=== PATIENT | female | born 1980 | race Caucasian/White ===

== ENCOUNTER 2016-04-02 14:08 | Emergency (ER) | payer OTHER ==
[~2016-04-02] VITALS: Ht 157.5 cm; Wt 53.2 kg
[~2016-04-02 14:08] MED LIST: AMPH10TA2 PO; INSDGI SQ; LXP/20 PO; NVLG
[2016-04-02 14:14] VITALS: Ht 157.5 cm; Wt 53.2 kg
[2016-04-02] MEDS ORDERED: KETOROLAC TROMETHAMINE 30 MG/ML VIAL IV STA (15:13)
[2016-04-02] MEDS ORDERED: ACETAMINOPHEN 500 MG TAB PO STA (15:13)
[2016-04-02] MEDS ORDERED: SODIUM CHLORIDE 0.9% 1000ML 1,000 ML IV STA ×2 (15:13→17:06)
[2016-04-02] MEDS ORDERED: ONDANSETRON INJ 2 MG/ML 2 ML VIAL IV STA (15:13)
[2016-04-02] MEDS ORDERED: ALBUTEROL HFA 8 GM INHALER INH ONE (15:15)
[2016-04-02] MEDS ORDERED: MoRPHine SULFATE 4 MG/ML 1 ML CARP\\VIAL IV PRN (15:15)
--- NOTE | 2016-04-02 15:24 | EMERGENCY ROOM VISIT NOTE ---
History Report prepared by Joann: Linda Roger Under the Supervision of: Dr. Andrew Rosales M.D. First contact with patient: 15:10 Chief Complaint: COUGH Stated Complaint: HIGH FEVER, PAIN WITH COUGH Nursing Triage Summary: Triage note: pt reports since saturday she has had a cough with yellow sputum and fever. pt reports neck and back pain. mask given to pt in triage. pt reports she has taken no tylenol or motrin today for her fever/pain. History of Present Illness The patient is a 35 year old female who presents to the Emergency Room with complaints of a persistent, productive cough that began . She currently rates her discomfort as a 10/10 in severity. The patient states that her cough has been productive, noting that she has brought up yellow sputum with it. She notes that she has been vomiting due to coughing so much. The patient states that due to her cough she has been developed a headache, neck pain, and back pain. She notes that she has had a persistent fever. The patient denies taking anything for her fever this morning. She denies any urinary symptoms or diarrhea. The patient is unsure if she got a flu shot this year, and doesn't believe she was around anyone with similar symptoms or the flu. She states that she has not kept up on her fluid intake or food intake. The patient states that her blood glucose levels have been running high since her illness began. Source of History: patient Onset: Position: other (global) Symptom Intensity: 10/10 Quality: other (productive cough) Timing: other (persistent) Associated Symptoms: + back pain, + fevers, + headache, + neck pain, + vomiting Review of Systems See HPI for pertinent positives & negatives. A total of 10 systems reviewed and were otherwise negative. Past Medical & Surgical Medical Problems: (1) Diabetes (2) DKA (diabetic ketoacidoses) Surgical Problems: (1) Hx of section Family History Diabetes mellitus Hypertension Social History Smoking Status: Current Every Day Smoker Alcohol Use: none Marital Status: single Housing Status: lives with family Occupation Status: employed Current/Historical Medications Scheduled Albuterol Hfa (Ventolin Hfa), 3 PUFFS INH Q4 Amoxicillin & Pot Clavulanate (Augmentin 875-125 mg), 875 MG PO BID Amphetamine-Dextroamphetamine 10MG (Adderall 10MG), 10 MG PO DAILY Amphetamine-Dextroamphetamine 20MG (Adderall 20MG), 20 MG PO DAILY Control Pills ( Control Pills), 1 TAB PO DAILY Insulin Aspart (novoLOG INSULIN PUMP ), 1 EA N/A UD Allergies Coded Allergies: Niacin (Verified Allergy, Severe, HIVES, 02/21/16) Latex1 -Allergic Contact Dermititis (Verified Allergy, Mild, RASH, 11/02/10 ) PT. HAS REDDENED/FEELING BURNED AREA FROM TAPED SITES Physical Exam Vital Signs Date Time Temp Pulse Resp B/P Pulse Ox O2 Delivery O2 Flow Rate FiO2 04/02/16 16:00 95 Room Air 04/02/16 14:14 39.4 20 20 138/79 97 Room Air Physical Exam GENERAL: Patient is in no acute distress. HEENT: No acute trauma, normocephalic atraumatic, mucous membranes moist, no nasal congestion, no scleral icterus. Mild throat erythema, without exudate. NECK: No stridor, no adenopathy, no meningismus, trachea is midline. LUNGS: Diminished breath sounds with coarse breath sounds. No true wheezing, breath sounds are equal. No respiratory distress. Moist cough noted. HEART: Tachycardic with a regular rhythm, no murmurs. ABDOMEN: Soft, nontender, bowel sounds positive, no hernias, no peritonitis. EXTREMITIES: No cyanosis or edema, full range of motion of all the joints without pain or difficulty, no signs for acute trauma. NEUROLOGIC: Oriented x 3, no acute motor or sensory deficits, no focal weakness. SKIN: No rash, no jaundice, no diaphoresis. Medical Decision & Procedures ER Provider Diagnostic Interpretation: X-ray results as stated below per interpretation by me and the radiologist: CHEST ONE VIEW PORTABLE CLINICAL HISTORY: Respiratory distress. Dyspnea COMPARISON STUDY: Chest radiograph June 29, 2015. FINDINGS: Lung volumes are normal. Left lower lobe consolidation is noted. Right lung is clear. Cardiac size is normal. Mediastinal contours are normal. IMPRESSION: Small area of left lower lobe consolidation suggestive of pneumonia. Radiographic follow-up to ensure resolution is recommended. Electronically signed by: Derrell Hernandez M.D. 04/02/2016 3:58 PM Dictated Date/Time: 04/02/2016 3:58 PM Laboratory Results 04/02/16 16:10 Red Blood Count 4.22, Mean Corpuscular Volume 85.3, Mean Corpuscular Hemoglobin 30.3, Mean Corpuscular Hemoglobin Concent 35.6, Mean Platelet Volume 9.6, Neutrophils (%) (Auto) 85.8, Lymphocytes (%) (Auto) 7.3, Monocytes (%) (Auto) 6.4, Eosinophils (%) (Auto) 0.0, Basophils (%) (Auto) 0.1, Neutrophils # (Auto) 9.72, Lymphocytes # (Auto) 0.82, Monocytes # (Auto) 0.72, Eosinophils # (Auto) 0.00, Basophils # (Auto) 0.01 04/02/16 16:10 Test 04/02/16 14:16 04/02/16 15:40 04/02/16 16:10 04/02/16 17:05 Bedside Glucose 258 mg/dl (70-90) Influenza Type A Antigen Neg for Influ A (NEG) Influenza Type B Antigen Neg for Influ B (NEG) White Blood Count 11.31 K/uL (4.8-10.8) Red Blood Count 4.22 M/uL (4.2-5.4) Hemoglobin 12.8 g/dL (12.0-16.0) Hematocrit 36.0 % (37-47) Mean Corpuscular Volume 85.3 fL (80-100) Mean Corpuscular Hemoglobin 30.3 pg (25-34) Mean Corpuscular Hemoglobin Concent 35.6 g/dl (32-36) Platelet Count 210 K/uL (130-400) Mean Platelet Volume 9.6 fL (7.4-10.4) Neutrophils (%) (Auto) 85.8 % Lymphocytes (%) (Auto) 7.3 % Monocytes (%) (Auto) 6.4 % Eosinophils (%) (Auto) 0.0 % Basophils (%) (Auto) 0.1 % Neutrophils # (Auto) 9.72 K/uL (1.4-6.5) Lymphocytes # (Auto) 0.82 K/uL (1.2-3.4) Monocytes # (Auto) 0.72 K/uL (0.11-0.59) Eosinophils # (Auto) 0.00 K/uL (0-0.5) Basophils # (Auto) 0.01 K/uL (0-0.2) RDW Standard Deviation 42.2 fL (36.4-46.3) RDW Coefficient of Variation 13.5 % (11.5-14.5) Immature Granulocyte % (Auto) 0.4 % Immature Granulocyte # (Auto) 0.04 K/uL (0.00-0.02) Anion Gap 11.0 mmol/L (3-11) Est Creatinine Clear Calc Drug Dose 68.2 ml/min Estimated GFR () 94.2 Estimated GFR (Non- 81.2 BUN/Creatinine Ratio 10.4 (10-20) Calcium Level 8.6 mg/dl (8.5-10.1) Lactic Acid Level 0.9 mmol/L (0.4-2.0) Laboratory results reviewed by me. Medications Administered Medications (Trade) Dose Ordered Sig/Chuck Route Start Time Stop Time Status Last Admin Dose Admin Ondansetron HCl 4 mg 4 mg NOW STAT IV 04/02/16 15:13 04/02/16 15:17 DC 04/02/16 16:07 4 MG Sodium Chloride (Nss 1000ml) 1,000 ml @ 999 mls/hr Q1H1M STAT IV 04/02/16 15:13 04/02/16 16:13 DC 04/02/16 16:07 999 MLS/HR Morphine Sulfate (MoRPHine SULFATE INJ) 4 mg Q30M PRN IV 04/02/16 15:15 04/16/16 15:14 04/02/16 16:07 4 MG Acetaminophen (Tylenol Tab) 1,000 mg NOW STAT PO 04/02/16 15:13 04/02/16 15:17 DC 04/02/16 16:08 1,000 MG Ketorolac Tromethamine (Toradol Inj) 30 mg NOW STAT IV 04/02/16 15:13 04/02/16 15:17 DC 04/02/16 16:08 30 MG Albuterol (Ventolin Hfa Inhaler) 4 puffs NOW ONCE INH 04/02/16 15:15 04/02/16 15:17 DC 04/02/16 16:08 4 PUFFS Piperacillin Sod/ Tazobactam Sod 4.5 gm 4.5 gm NOW STAT IV 04/02/16 16:05 04/02/16 16:07 DC 04/02/16 16:10 4.5 GM Sodium Chloride (Nss 1000ml) 1,000 ml @ 999 mls/hr Q1H1M STAT IV 04/02/16 17:06 04/02/16 18:06 04/02/16 17:06 999 MLS/HR ED Course 1510: The patient was evaluated in room B12B. A complete history and physical exam was performed. 1513: Ordered Toradol Inj 30 mg IV, Tylenol Tab 1000 mg PO, Sodium Chloride 1000 ml @ 999 mls/hr IV, Zofran Inj 4 mg IV. 1515: Ordered Albuterol 4 puffs INH, Morphine Sulfate 4 mg IV. 1605: Ordered Zosyn IV 4.5 gm IV. 1705: I reevaluated the patient and she is feeling better and wishing to go home if possible. I discussed the findings thus far. We are waiting on her lactic acid and she is going to get more fluids. Ordered Sodium Chloride 1000 ml @ 999 mls/hr IV. 1745: I reevaluated the patient and she is resting comfortably. I discussed all the exam findings with her and I discussed the treatment plan. She verbalized complete understanding and agreement. She is ready to go home. Medical Decision The patient is a 35 year old female who presents to the ED with complaints of persistent productive cough. Differential diagnoses considered include Influenza, flu like illness, dehydration, pneumonia, electrolyte imbalance, sepsis, bronchitis. There is a mild leukocytosis which is consistent with infection, no concerning anemia. No significant electrolyte abnormality except for a mild elevation to the blood glucose. No kidney failure. Lactic acid level is not elevated making severe sepsis less likely. Influenza testing is negative. Blood cultures are pending. Chest film shows a left lower lung pneumonia, no pneumothorax. The patient received IV saline, IV Zofran, albuterol via MDI, IV Toradol and IV morphine. She received oral Tylenol. She was given a dose of IV Zosyn. The patient feels improved, she is not hypoxic or toxic. She would like to be discharged home, she feels comfortable with discharge. She will be using Augmentin and albuterol as an outpatient, hydration and rest were encouraged. Motrin/Tylenol for aches and pain and fever were suggested. The patient was encouraged to see her doctor this week and to return to the ER for worsening symptoms or difficulty with her breathing. Impression Primary Impression: Pneumonia Additional Impressions: Dehydration Fever Scribe Attestation The scribe's documentation has been prepared under my direction and personally reviewed by me in its entirety. I confirm that the note above accurately reflects all work, treatment, procedures, and medical decision making performed by me. Departure Information Dispostion Home / Self-Care Prescriptions Albuterol Hfa (VENTOLIN HFA) 200 Puffs/50324 Mcg Aers 3 PUFFS INH Q4, #1 INHALER Prov: Andrew Rosales M.D. 04/02/16 Amoxicillin & Pot Clavulanate (Augmentin 875-125 mg) 1 Tab Tab 875 MG PO BID for 10 Days, #20 TAB Prov: Andrew Rosales M.D. 04/02/16 Referrals Monica Ricci DO (PCP) Forms HOME CARE DOCUMENTATION FORM, IMPORTANT VISIT INFORMATION, Work Instructions Patient Instructions My [facility] Additional Instructions rest fluids motrin and or tylenol for fever and pain albuterol 3 puffs every 4 hours augmentin 2x per day for 10 days follow with derick pang this week return for worsening breathing or worsening symptoms Problem Qualifiers
[2016-04-02] MEDS ORDERED: AMPH10TA2 PO (15:41)
[2016-04-02 16:00] VITALS: O2SAT 95
--- NOTE | 2016-04-02 16:00 | DIAGNOSTIC IMAGING REPORT ---
CHEST ONE VIEW PORTABLE CLINICAL HISTORY: Respiratory distress. Dyspnea COMPARISON STUDY: Chest radiograph June 29, 2015. FINDINGS: Lung volumes are normal. Left lower lobe consolidation is noted. Right lung is clear. Cardiac size is normal. Mediastinal contours are normal. IMPRESSION: Small area of left lower lobe consolidation suggestive of pneumonia. Radiographic follow-up to ensure resolution is recommended. Electronically signed by: Derrell Hernandez M.D. 04/02/2016 3:58 PM Dictated Date/Time: 04/02/2016 3:58 PM
[2016-04-02] MEDS ORDERED: PIPERACILLIN/TAZOBACTAM 4.5 GM/100ML D5W IV STA (16:05)
[2016-04-02 16:27] LABS: MEAN CELL VOLUME 85.3 fL (80-100); MEAN CORPUSCULAR HEMOGLOBIN 30.3 pg (25-34); MEAN CORPUSCULAR HGB CONC 35.6 g/dl (32-36); MEAN PLATELET VOLUME 9.6 fL (7.4-10.4); PLATELET COUNT 210 K/uL (130-400); RED BLOOD COUNT 4.22 M/uL (4.2-5.4); WHITE BLOOD COUNT 11.31 K/uL (4.8-10.8)
[2016-04-02 16:46] LABS: BASO % 0.1 %; BASO ABS # 0.01 K/uL (0-0.2); BUN/CREATININE RATIO 10.4 (10-20); CALCIUM 8.6 mg/dl (8.5-10.1); COMPLETE YES; CREATININE 0.92 mg/dl (0.60-1.20); IG% 0.4 %; LYMPH % 7.3 %; LYMPH ABS # 0.82 K/uL (1.2-3.4); MONO % 6.4 %; NEUT % 85.8 %; POTASSIUM 3.8 mmol/L (3.5-5.1)
[2016-04-02] MEDS ORDERED: AMOX875T PO (17:45)
[2016-04-02] MEDS ORDERED: VNTHFA/IN INH (17:45)
[2016-04-02 18:30] VITALS: BP 92/69; PULSE 85; O2SAT 100
[2016-04-02 18:36] VITALS: TEMP 37
[2016-12-09] MEDS ORDERED: BCPILLS PO (13:47)
== END 2016-04-02 18:31 | disposition home or self-care (01) ==
LOC: C.EDB 14:09
DX: J18.9 Pneumonia, unspecified organism (principal); E86.0 Dehydration; R50.9 Fever, unspecified; E11.9 Type 2 diabetes mellitus without complications; Z83.3 Family history of diabetes mellitus; F17.210 Nicotine dependence, cigarettes, uncomplicated; Z79.3 Long term (current) use of hormonal contraceptives; Z79.4 Long term (current) use of insulin

== ENCOUNTER 2016-12-09 15:00 | Emergency (ER) | payer OTHER ==
[~2016-12-09] VITALS: Ht 157.5 cm; Wt 55.2 kg
[~2016-12-09 15:00] MED LIST changes: +BCPILLS PO; -INSDGI SQ; -LXP/20 PO; -NVLG
[2016-12-09 15:09] VITALS: TEMP 36.9; Ht 157.5 cm; Wt 55.2 kg
[2016-12-09] MEDS ORDERED: HYDROCODONE/ACETAMOPHEN 5/325MG TAB PO ONE (15:30)
[2016-12-09] MEDS ORDERED: AMPH20TA2 PO (15:41)
[2016-12-09] MEDS ORDERED: INSPMPNVLG (15:41)
[2016-12-09] MEDS ORDERED: TRAM-10 PO ×2 (15:41→15:53)
--- NOTE | 2016-12-09 15:48 | DIAGNOSTIC IMAGING REPORT ---
R WRIST MIN 3 VIEWS ROUTINE HISTORY: 36 years-old Female R/O fx right wrist acute right wrist pain status post trauma. COMPARISON: None available. TECHNIQUE: 4 views of the right wrist FINDINGS: Vascular calcifications are noted. There is no acute fracture or dislocation identified. Posttraumatic deformity with increased sclerosis is noted involving the first metacarpal with linear calcifications suggesting healed fracture deformity. There is mild soft tissue swelling about the wrist. No opaque foreign body identified. IMPRESSION: 1. Mild soft tissue swelling about the wrist without acute fracture or dislocation. 2. Healed fracture deformity of the first metacarpal. 3. Peripheral vascular disease. The above report was generated using voice recognition software. It may contain grammatical, syntax or spelling errors. Electronically signed by: Vasile Jones M.D. 12/09/2016 3:47 PM Dictated Date/Time: 12/09/2016 3:45 PM
[2016-12-09 15:56] VITALS: BP 128/76; PULSE 82; O2SAT 96
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
== END 2016-12-09 15:58 | disposition home or self-care (01) ==
LOC: C.EDB 15:01 → C.EDD 15:58
DX: M25.531 Pain in right wrist (principal); E11.9 Type 2 diabetes mellitus without complications; F17.200 Nicotine dependence, unspecified, uncomplicated; Z79.899 Other long term (current) drug therapy; Z91.040 Latex allergy status; Z88.8 Allergy status to other drugs, medicaments and biological substances

== ENCOUNTER 2017-02-15 12:11 | Emergency (ER) | payer OTHER ==
[~2017-02-15] VITALS: Ht 157.5 cm; Wt 53.8 kg
[~2017-02-15 12:11] MED LIST changes: +AMPH20TA2 PO; +INSPMPNVLG; +TRAM-10 PO
[2017-02-15 12:16] VITALS: BP 110/72; PULSE 85; TEMP 36.8; O2SAT 100; Ht 157.5 cm; Wt 53.8 kg
[2017-02-15] MEDS ORDERED: HYDROCODONE/ACETAMOPHEN 5/325MG TAB PO STA (13:00)
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
== END 2017-02-15 13:42 | disposition home or self-care (01) ==
LOC: C.EDB 12:12 → C.EDD 13:42
DX: M54.9 Dorsalgia, unspecified (principal); E11.9 Type 2 diabetes mellitus without complications; Z98.891 History of uterine scar from previous surgery; Z83.3 Family history of diabetes mellitus; Z82.49 Family history of ischemic heart disease and other diseases of the circulatory system

== ENCOUNTER 2017-05-28 16:03 | Emergency (ER) | payer OTHER ==
[~2017-05-28] VITALS: Ht 157.5 cm; Wt 44.0 kg
[~2017-05-28 16:03] MED LIST changes: -TRAM-10 PO
[2017-05-28 16:43] VITALS: Ht 157.5 cm; Wt 44.0 kg
--- NOTE | 2017-05-28 16:43 | EMERGENCY ROOM VISIT NOTE ---
History Report prepared by Joann: Jacques Guido Under the Supervision of: Dr. Allyson Hernandez M.D. First contact with patient: 16:06 Chief Complaint: MENTAL HEALTH EVALUATION Stated Complaint: MHID History of Present Illness The patient is a 36 year old female who presents to the Emergency Room with complaints of suicidal statements occurring last night. The patient states that her and her parents do not get along, and they called [facility] for the patient. The patient told [facility] that she was neither suicidal nor homicidal. The patient states that three weeks ago she asked her parents to watch her kids because there was an odd smell in her house, and she states that her parents will not give her kids back. The patient states that she got in a large fight with her parents last night, and she told them " why don't I just trade my car and do all the drugs under the sun. Then I'll be 6 feet under." The patient states that she does not want to hurt herself currently. She states that she used to use drugs ten years ago, and she thinks that her father will never get past that. The patient states that she has been clean since then other than a relapse two weeks ago when she smoked marijuana. She denies any other drug use, alcohol use, and she states that she smokes 3-4 cigarettes per day. The patient states that she starts a new job tomorrow. Of note the patient was brought in on a 302 after she phone on mobile crisis. Parents have been contacted and did file a petitioning statement based on statements of wanting to overdose on drugs. The patient has had significant erratic behavior according to the mother. She has been sending threatening text messages regarding her worthlessness and how she should just disappear to her father. The patient was fired from her job approximately 10 days ago for not showing up. 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 The patient apparently has been threatening to, and take her children back however did not show or call on the day she was supposed to. Her daughters have been with her parents for the last 3-1/2 weeks. She did drive her children to her parents house in the middle of the night, approximately 3 AM. Her mother states she does not have insurance cards or a house torres. The patient has apparently been having some hallucinations regarding white powder in her car "burning her face" , people walking on her ceiling and people stealing things from her. She has been calling her parents to her house to verify these paranoias. The patient has apparently been impulsive and reckless. Source of History: patient Onset: last night Position: other (global) Quality: other (suicidal statements) Note: Denies any suicidal or homicidal ideations Review of Systems See HPI for pertinent positives & negatives. A total of 10 systems reviewed and were otherwise negative. Past Medical & Surgical Medical Problems: (1) Diabetes (2) DKA (diabetic ketoacidoses) Surgical Problems: (1) Hx of section Family History Diabetes mellitus Hypertension Social History Smoking Status: Never Smoker Alcohol Use: none Marital Status: single Housing Status: lives with family Occupation Status: employed Current/Historical Medications Scheduled Control Pills ( Control Pills), 1 TAB PO DAILY Insulin Aspart (novoLOG INSULIN PUMP ), 1 EA N/A UD Melatonin-Pyridoxine (Melatonin), 5 MG PO HS [Cbd Liq], 1 DOSE PO DAILY Allergies Coded Allergies: Niacin (Verified Allergy, Severe, HIVES, 02/15/17) Latex1 -Allergic Contact Dermititis (Verified Allergy, Mild, RASH, 02/15/17 ) PT. HAS REDDENED/FEELING BURNED AREA FROM TAPED SITES Physical Exam Vital Signs Date Time Temp Pulse Resp B/P (MAP) Pulse Ox O2 Delivery O2 Flow Rate FiO2 05/28/17 21:36 89 142/88 97 Room Air 05/28/17 18:57 109 16 152/88 97 Room Air 05/28/17 16:43 36.8 133 18 161/98 100 Room Air Physical Exam Vital signs reviewed. General: Well-appearing female, in no significant distress. Slightly agitated. HEENT: No scleral icterus, PERRLA, neck supple. Atraumatic. Cardiovascular: Regular rate and rhythm, no extra sounds. Pulmonary: Clear to auscultation bilaterally, normal work of breathing. Abdomen: Soft, nontender, nondistended, positive bowel sounds. Musculoskeletal: Atraumatic, no peripheral edema. Neurologic: Patient awake alert and oriented x 3, full strength in all 4 extremities. Cranial nerves 2 through 12 grossly intact. Skin: Warm, dry, no rash Psych: Negative SI and HI. Medical Decision & Procedures Laboratory Results 05/28/17 16:40 Red Blood Count 4.98, Mean Corpuscular Volume 85.9, Mean Corpuscular Hemoglobin 30.5, Mean Corpuscular Hemoglobin Concent 35.5, Mean Platelet Volume 9.6, Neutrophils (%) (Auto) 64.5, Lymphocytes (%) (Auto) 30.4, Monocytes (%) (Auto) 3.9, Eosinophils (%) (Auto) 0.8, Basophils (%) (Auto) 0.1, Neutrophils # (Auto) 4.86, Lymphocytes # (Auto) 2.29, Monocytes # (Auto) 0.29, Eosinophils # (Auto) 0.06, Basophils # (Auto) 0.01 05/28/17 16:40 Test 05/28/17 16:35 05/28/17 16:40 05/28/17 18:22 Urine Color YELLOW Urine Appearance CLEAR (CLEAR) Urine pH 7.0 (4.5-7.5) Urine Specific Pine 1.015 (1.000-1.030) Urine Protein 1+ (NEG) Urine Glucose (UA) 3+ (NEG) Urine Ketones NEG (NEG) Urine Occult Blood NEG (NEG) Urine Nitrite NEG (NEG) Urine Bilirubin NEG (NEG) Urine Urobilinogen NEG (NEG) Urine Leukocyte Esterase NEG (NEG) Urine RBC 0-4 /hpf (0-4) Urine WBC 1-5 /hpf (0-5) Urine Epithelial Cells >30 /lpf (0-5) Urine Bacteria NEG (NEG) Urine Test NEG (NEG) Urine Opiates Screen NEG (NEG) Urine Methadone, Qualitative NEG (NEG) Urine Barbiturates NEG (NEG) Urine Phencyclidine (PCP) Level NEG (NEG) Ur Amphetamine/Methamphetamine POS (NEG) MDMA (Ecstasy) Screen NEG (NEG) Urine Benzodiazepines Screen NEG (NEG) Urine Cocaine Metabolite NEG (NEG) Urine Marijuana (THC) POS (NEG) White Blood Count 7.53 K/uL (4.8-10.8) Red Blood Count 4.98 M/uL (4.2-5.4) Hemoglobin 15.2 g/dL (12.0-16.0) Hematocrit 42.8 % (37-47) Mean Corpuscular Volume 85.9 fL (80-100) Mean Corpuscular Hemoglobin 30.5 pg (25-34) Mean Corpuscular Hemoglobin Concent 35.5 g/dl (32-36) Platelet Count 284 K/uL (130-400) Mean Platelet Volume 9.6 fL (7.4-10.4) Neutrophils (%) (Auto) 64.5 % Lymphocytes (%) (Auto) 30.4 % Monocytes (%) (Auto) 3.9 % Eosinophils (%) (Auto) 0.8 % Basophils (%) (Auto) 0.1 % Neutrophils # (Auto) 4.86 K/uL (1.4-6.5) Lymphocytes # (Auto) 2.29 K/uL (1.2-3.4) Monocytes # (Auto) 0.29 K/uL (0.11-0.59) Eosinophils # (Auto) 0.06 K/uL (0-0.5) Basophils # (Auto) 0.01 K/uL (0-0.2) RDW Standard Deviation 45.1 fL (36.4-46.3) RDW Coefficient of Variation 14.4 % (11.5-14.5) Immature Granulocyte % (Auto) 0.3 % Immature Granulocyte # (Auto) 0.02 K/uL (0.00-0.02) Anion Gap 7.0 mmol/L (3-11) Est Creatinine Clear Calc Drug Dose 64.2 ml/min Estimated GFR () 102.9 Estimated GFR (Non- 88.8 BUN/Creatinine Ratio 16.0 (10-20) Calcium Level 8.9 mg/dl (8.5-10.1) Total Bilirubin 0.4 mg/dl (0.2-1) Direct Bilirubin 0.1 mg/dl (0-0.2) Aspartate Amino Transf (AST/SGOT) 23 U/L (15-37) Alanine Aminotransferase (ALT/SGPT) 44 U/L (12-78) Alkaline Phosphatase 111 U/L (45-117) Total Protein 8.8 gm/dl (6.4-8.2) Albumin 3.7 gm/dl (3.4-5.0) Thyroid Stimulating Hormone (TSH) 0.733 uIu/ml (0.300-4.500) Salicylates Level 2.3 mg/dl (2.8-20) Acetaminophen Level < 2 ug/ml (10-30) Ethyl Alcohol mg/dL < 3.0 mg/dl (0-3) Bedside Glucose 226 mg/dl (70-90) Laboratory results per my review. ED Course 1621: Past medical records reviewed. The patient was evaluated in room A2. A complete history and physical examination was performed. 1935: The case folder talked with the patients mother and father, and they are extremely concerned that the patient is going to end her life and is depressed. They state that the patient feels like a failure, she thinks that people are breaking into her house, and she has been having hallucinations. The patient has been an inpatient at the [facility] before, and she has been diagnosed with bipolar disorder. They additionally note that the patient has a history of cutting her wrists, she has not been eating and losing weight, and she has been going 2-3 days without sleeping at a time. 2039: I reevaluated the patient, and I discussed the treatment plan with her. I tried to contact her mother, and she did not answer so I left a message. 2205: I was able to get in contact with the patient's mother again. 2325: I reevaluated the patient, and she was stable. Medical Decision Differential diagnosis: Etiologies such as mood disorder, infection, hypoglycemia, electrolyte abnormalities, cardiac sources, intracerebral event, toxicologic, neurologic, as well as others were entertained. This patient was evaluated and appeared to be agitated and anxious on my exam. The patient has been brought in on a 302 by her parents, claiming that she has been a danger to herself. The patient has apparently been acting somewhat out of character and not caring for her kids. Her parents have had to pay her bills and her dad has given her money. She has been threatening to overdose on drugs, stating she is worthless. The patient states that her parents are "stealing" her children, although according to her mother the patient has not arrived at the house to take them back as she has claimed. Parents are concerned due to her paranoid thinking and recklessness. Patient denies any methamphetamine use however she is testing positive. She does admit to using marijuana within the last several weeks. At this time, I feel the patient is impulsive and a danger to herself. 302 has been completed in the bed search is currently underway. Patient has been signed out to Dr. Cherry at the change of shift, pending final disposition. Medication Reconcilliation Current Medication List: was personally reviewed by me Blood Pressure Screening Patient's blood pressure: Elevated blood pressure Blood pressure disposition: Elevated BP felt to be situational Impression Primary Impression: Suicidal risk Additional Impressions: Polysubstance abuse Insulin dependent diabetes mellitus Hallucinations Paranoia Scribe Attestation The scribe's documentation has been prepared under my direction and personally reviewed by me in its entirety. I confirm that the note above accurately reflects all work, treatment, procedures, and medical decision making performed by me. Departure Information Referrals Carmella Matias MD (PCP) Patient Instructions My [facility] Problem Qualifiers
[2017-05-28] MEDS ORDERED: MELA3TAB7 PO (16:50)
[2017-05-28] MEDS ORDERED: CBD PO (16:50)
[2017-05-28 17:00] LABS: BASO % 0.1 %; BASO ABS # 0.01 K/uL (0-0.2); EOS % 0.8 %; EOS ABS # 0.06 K/uL (0-0.5); HEMATOCRIT 42.8 % (37-47); HEMOGLOBIN 15.2 g/dL (12.0-16.0); IG# 0.02 K/uL (0.00-0.02); LYMPH % 30.4 %; LYMPH ABS # 2.29 K/uL (1.2-3.4); MEAN CELL VOLUME 85.9 fL (80-100); MEAN CORPUSCULAR HEMOGLOBIN 30.5 pg (25-34); MEAN CORPUSCULAR HGB CONC 35.5 g/dl (32-36); MEAN PLATELET VOLUME 9.6 fL (7.4-10.4); MONO % 3.9 %; MONO ABS # 0.29 K/uL (0.11-0.59); NEUT % 64.5 %; NEUT ABS # 4.86 K/uL (1.4-6.5); PLATELET COUNT 284 K/uL (130-400); RED CELL DISTRIBUTION WIDTH CV 14.4 % (11.5-14.5); RED CELL DISTRIBUTION WIDTH SD 45.1 fL (36.4-46.3); WHITE BLOOD COUNT 7.53 K/uL (4.8-10.8)
[2017-05-28 17:18] LABS: ALBUMIN 3.7 gm/dl (3.4-5.0); CALCIUM 8.9 mg/dl (8.5-10.1); CREATININE 0.85 mg/dl (0.60-1.20); POTASSIUM 3.3 mmol/L (3.5-5.1)
[2017-05-28 17:29] LABS: TOTAL PROTEIN 8.8 gm/dl (6.4-8.2)
[2017-05-28] MEDS ORDERED: HALOPERIDOL LACTATE 5 MG/ML 1 ML VIAL IM STA (20:58)
[2017-05-28] MEDS ORDERED: LORAZEPAM 2 MG/ML 1 ML VIAL IM STA (20:58)
--- NOTE | 2017-05-29 04:22 | EMERGENCY ROOM VISIT NOTE ---
ED Visit Note First contact with patient: 01:53 This case was signed out to me at change of shift awaiting bed placement. The patient is here on a 302. The bed search was suspended and will resume in the morning. The patient is sleeping at this time. She will receive her morning medications. The case will be signed out to Dr. Meeyr at change of shift awaiting bed placement.
[2017-05-29 06:42] VITALS: TEMP 36.9
[2017-05-29] MEDS ORDERED: NICOTINE 21 MG/24 HR TDSY TD STA (11:23)
--- NOTE | 2017-05-29 14:24 | EMERGENCY ROOM VISIT NOTE ---
ED Visit Note First contact with patient: 07:34 36 yr old female arrived last evening initially evaluated by Dr Kirkland. Initially somewhat combative but then medically cleared by Dr Kirkland. Signed out to Dr Cherry awaiting placement. Throughout morning patient calm, cooperative and without issue. Bumped head accidentally on TV remote without evidence injury nor need for imaging. She denies this was attempt to harm herself. Denies drug abuse but clearly meth in system. She has long 302 which is already signed at warrant. Signed out to Dr Rosales awaiting placement.
--- NOTE | 2017-05-29 16:20 | EMERGENCY ROOM VISIT NOTE ---
ED Visit Note First contact with patient: 14:53 I assumed care at the change of shift, Dr. Meyer had been the physician prior to me. The patient had been deemed medically clear. A bed search was underway. The patient has been accepted at [facility]. She is being transferred there for an inpatient stay. She is being admitted involuntarily. She has had no complaints or issues while under my care.
[2017-05-29 17:22] VITALS: BP 154/84; PULSE 100; O2SAT 98
== END 2017-05-29 17:30 ==
LOC: C.EDA 16:03
DX: R45.851 Suicidal ideations (principal); F12.10 Cannabis abuse, uncomplicated; F15.10 Other stimulant abuse, uncomplicated; F22 Delusional disorders; R03.0 Elevated blood-pressure reading, without diagnosis of hypertension; F31.9 Bipolar disorder, unspecified; F17.200 Nicotine dependence, unspecified, uncomplicated; E11.9 Type 2 diabetes mellitus without complications; Z79.3 Long term (current) use of hormonal contraceptives; Z79.4 Long term (current) use of insulin; Z88.8 Allergy status to other drugs, medicaments and biological substances; Z91.040 Latex allergy status; Z83.3 Family history of diabetes mellitus; Z82.49 Family history of ischemic heart disease and other diseases of the circulatory system

== ENCOUNTER → 2017-07-30 | Outpatient (CLI) | payer OTHER ==
[~2017-07-30] MED LIST changes: -AMPH10TA2 PO; -AMPH20TA2 PO; +CBD PO; +MELA3TAB7 PO
[2017-07-30 14:57] LABS: ALBUMIN 3.6 gm/dl (3.4-5.0); ALKALINE PHOSPHATASE 112 U/L (45-117); ALT/SGPT 65 U/L (12-78); AST/SGOT 43 U/L (15-37); BLOOD UREA NITROGEN 9 mg/dl (7-18); CALCIUM 9.4 mg/dl (8.5-10.1); CARBON DIOXIDE 29 mmol/L (21-32); CHOLESTEROL 193 mg/dl (0-200); CREATININE 0.78 mg/dl (0.60-1.20); GLUCOSE 163 mg/dl (70-99); LDL CHOLESTEROL CALCULATED 109 mg/dl; POTASSIUM 3.8 mmol/L (3.5-5.1); SODIUM 137 mmol/L (136-145); TOTAL PROTEIN 8.3 gm/dl (6.4-8.2)
[2017-07-31 06:05] LABS: HEMOGLOBIN A1C 9.8 % (4.5-5.6)
== END | disposition home or self-care (01) ==
LOC: C.LAB1850 13:27
PROVIDERS: ATTEND Physician Assistant
DX: N91.2 Amenorrhea, unspecified (principal); E10.9 Type 1 diabetes mellitus without complications

== ENCOUNTER 2018-03-26 16:02 | Inpatient (IN) ==
[~2018-03-26 16:02] MED LIST changes: -BCPILLS PO; -CBD PO; -INSPMPNVLG; +INSULIN GLARGINE SOLOSTAR 100 UNITS/ML 3 ML PEN SC SCH; -MELA3TAB7 PO
[2018-03-26] MEDS ORDERED: NovoLIN-R INSULIN PER UNIT CHARGE SC STA ×2 (16:13→17:22)
[2018-03-26] MEDS ORDERED: SODIUM CHLORIDE 0.9% 1000ML 1,000 ML IV SCH (16:15)
[2018-03-26 17:15] LABS: Basophils # (auto) 0.03 K/uL (0-0.2); Basophils % (auto) 0.4 %; Eosinophils # (auto) 0.04 K/uL (0-0.5); Eosinophils % (auto) 0.6 %; Hematocrit (blood only) 42.5 % (37-47); Hemoglobin 14.8 g/dL (12.0-16.0); Immature Granulocytes # (auto) 0.01 K/uL (0.00-0.02); Immature Granulocytes % (auto) 0.1 %; Lymphocytes # (auto) 2.03 K/uL (1.2-3.4); Lymphocytes % (auto) 28.2 %; Mean Corpuscular Hgb Conc 34.8 g/dL (32-36); Mean Corpuscular Volume 84.7 fL (80-100); Mean Platelet Volume 9.1 fL (7.4-10.4); Monocytes # (auto) 0.38 K/uL (0.11-0.59); Monocytes % (auto) 5.3 %; Neutrophils % (auto) 65.4 %; Platelet Count 273 K/uL (130-400); RDW Coefficient of Variation 14.9 % (11.5-14.5); RDW Standard Deviation 45.9 fL (36.4-46.3); Red Blood Count 5.02 M/uL (4.2-5.4); White Blood Count 7.19 K/uL (4.8-10.8)
[2018-03-26 17:18] LABS: Base Excess VBG 3.1 mEq/L; HCO3 VBG 28 mmol/L; PCO2 VBG 42 mmHg (38-50); PO2 VBG 26 mmHg; pH VBG 7.44 (7.36-7.41)
[2018-03-26 17:20] LABS: Oxygen Saturation VBG < 60.0 %
[2018-03-26 17:22] LABS: Appearance Urine Clear (Clear); Bilirubin Urine Negative (Negative); Color Urine Yellow; Glucose Urine UA 3+ (Negative); Ketones Urine Negative (Negative); Leukocyte Esterase Urine Negative (Negative); Nitrite Urine Negative (Negative); Protein Urine Negative (Negative); Specific Gravity Urine 1.039 (1.000-1.030); Urobilinogen Urine Negative (Negative)
[2018-03-26 17:26] LABS: Partial Thromboplastin Time 25.9 Seconds (21.0-31.0); Prothrombin Time 10.5 Seconds (9.0-12.0)
[2018-03-26 17:46] LABS: Acetaminophen < 2 ug/ml (10-30)
[2018-03-26 17:47] LABS: Salicylate 2.8 mg/dl (2.8-20)
[2018-03-26 17:51] LABS: Amphetamines+Metham, Urine Pos (Neg); Barbiturates, Urine Neg (Neg); Benzodiazepine, Urine Neg (Neg); Cocaine, Urine Neg (Neg); MDMA (Ecstacy), Urine Neg (Neg); Methadone, Urine Neg (Neg); Opiate, Urine Neg (Neg); Phencyclidine, Urine Neg (Neg)
[2018-03-26 17:54] LABS: Albumin Globulin Ratio 0.8 (0.9-2); Albumin Level 4.3 gm/dl (3.4-5.0); Bilirubin,Total 0.7 mg/dl (0.2-1); Calcium 9.9 mg/dl (8.5-10.1); Creatinine Clr Calc Pharmacy 64.7 ml/min; Est GFR (African American) 89.3; Est GFR (Non-African American) 77.1; Globulin 5.3 gm/dl (2.5-4.0); Potassium 4.1 mmol/L (3.5-5.1); Total Protein 9.6 gm/dl (6.4-8.2)
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
[2018-03-26] MEDS ORDERED: BISMUTH SUBSALICYLATE PER ML OMNICELL CHARGE PO PRN (21:38)
[2018-03-26] MEDS ORDERED: MAGNESIUM HYDROXIDE SUSP 30 ML UDC PO PRN (21:38)
[2018-03-26] MEDS ORDERED: SODIUM CHLORIDE 0.65% NA SOLN 45 ML (OCEAN) PRN (21:38)
[2018-03-26] MEDS ORDERED: ACETAMINOPHEN 325 MG TAB PO PRN (21:38)
[2018-03-26] MEDS ORDERED: ALUMINUM/MAGNESIUM SUSP 30 ML UDC PO PRN (21:38)
[2018-03-26] MEDS ORDERED: NICOTINE POLACRILEX 2 MG GUM MT PRN (21:44)
[2018-03-26] MEDS ORDERED: PHARMACY GLYCEMIC MGMT CONSULT PRN (21:50)
[2018-03-26] MEDS ORDERED: PHARMACY GLYCEMIC MGMT CONSULT STA (23:01)
[2018-03-26] MEDS ORDERED: ARIPiprazole 5 MG TAB PO SCH (23:45)
[2018-03-26] MEDS ORDERED: GLUCOSE 10 TABS/TUBE PO PRN (23:56)
[2018-03-26] MEDS ORDERED: GLUCOSE 40% GEL 15 GM TUBE PO PRN (23:56)
[2018-03-26] MEDS ORDERED: CARBOHYDRATES FOR HYPOGLYCEMIA PO PRN (23:56)
[2018-03-26] MEDS ORDERED: GLUCAGON FOR INJ 1 MG VIAL SQ PRN (23:56)
[2018-03-26] MEDS ORDERED: DEXTROSE 50% 50 ML SYRINGE IV PRN (23:56)
[2018-03-27] MEDS ORDERED: INSULIN GLARGINE SOLOSTAR 100 UNITS/ML 3 ML PEN SC ONE (00:15)
[2018-03-27] MEDS: PRAZOSIN HCL 1 MG CAP PO SCH ×2 (00:22→20:55)
[2018-03-27] MEDS: BusPIRone 15 MG TAB PO SCH ×3 (00:23→20:55)
[2018-03-27] MEDS: INSULIN ASPART 100 UNITS/ML 3 ML PEN SC SCH (00:46)
[2018-03-27] MEDS ORDERED: INSULIN GLARGINE 100 UNIT/ML VIAL SC ONE (09:00)
[2018-03-27] MEDS ORDERED: NICOTINE 21 MG/24 HR TDSY TD SCH (09:00)
[2018-03-27] MEDS: INSULIN ASPART 100 UNITS/ML VIAL SC SCH ×5 (09:16→20:59)
--- NOTE | 2018-03-27 10:04 | Pharmacy Report ---
Glycemic Control Consultation - Date of Service March 27, 2018 - Scope Scope: Glycemic Pharmacist consulted by Dr Marquez on [1-16] for glycemic control and to write orders per [facility] inpatient glycemic control protocol - Objective Weight: 50.1 kg Accuchecks BSG (last 24hrs): 03/26/18 03/26/18 03/26/18 16:10 17:02 17:52 Glucose 404 H* POC Glucose 492 H* 346 H 03/26/18 03/26/18 03/27/18 19:41 23:56 08:25 Glucose POC Glucose 152 H 291 H 531 H* - Recent Pertinent Medications Outpatient Anti-diabetic Regimen: * Novolog pump at home 0.65 U/hr; CF=50 / CR=20 * A1c = 9.8% - 07/30/17 ; ordered new A1C for tomorrow Risk Factors for Insulin Resistance: * Diet: T1DM - Assessment & Plan Assessment & Plan: ASSESSMENT: * 37 year old female admitted with psychosis/hyperglycemia. Type 1 diabetic managed at home on Novolog pump. Unclear to when pump was disconnected yesterday , patient poor historian. Verified with nurse this morning that in fact the pump is not connected and patient does not have pump at hospital. * Patient received 8 units of SQ regular insulin last evening - BSGs had been trending down from 346 mg/dL to 152 mg/dL. However at midnight BSGs trended back up to 291 mg/dL - received 5 units of Lantus and 6 units of SSI * BSG this morning is 531 mg/dL - patient utilizes about 15 units/day of basal coverage at home, ordered an additional 10 units of Lantus for this morning (in addition to 5 units earlier); also tightened CF/CR from her home settings * Monitored with Q2 hr checks this am to ensure BSGs trending down - if continue to trend down after dinner check, continue with Q4h checks, also could change back to patient's home settings of CF = 50 * Talked with physician and ordered anion gap recheck for today - which is trending up, but not elevated at this time * Of note, per discussion with nurse, patient prefers using insulin vials not the pens PLAN FOR INPATIENT GLYCEMIC CONTROL: * Basal insulin * Lantus 10 units x 1 this morning * Will add a scale of Lantus for this evening -For BSG less than 250 mg/dl - Lantus 5 units -For BSG 250 mg/dL or greater - Lantus 7 units * Bolus insulin - tightened; if BSG improving change to CF of 50 and CR 20 (her home setting) * NovoLog per scale ACHS or Q6hrs while NPO - will do Q4 hr checks this evening * Goal Range: Low 110 mg/dL - High 150 mg/dL * Correction Factor: 45 mg/dL/unit * Nutritional / Prandial insulin per carb ratio of 1 unit per 20 grams CHO consumed * Please note that the plan above was derived based on current level of insulin resistance and hospital stress. These recommendations are appropriate for inpatient admission only. Plan of care upon discharge will need to be reassessed to avoid potential outpatient hypo/hyperglycemia. Thank you.
[2018-03-27] MEDS ORDERED: INSULIN ASPART 100 UNITS/ML VIAL SC ONE (11:45)
--- NOTE | 2018-03-27 12:25 | History & Physical ---
Date of Service March 27, 2018 Impression / Recommendations Impression 37 yo CF who has a history of uncontrolled DM, h/o depression and opiate use d/o , who was admitted on a 302 involuntary commitment for paranoid delusions of people trying to kill her. Patient also had uncontrolled DM with blood glucose of 531 but was medically cleared in ER. Patient uncooperative after multiple attempts to interview and stated "leave me alone so I can rest, I'm not crazy". Per 302, patient has been paranoid and has called police multiple times in last few days about people out to kill her. She also ran into a neighbors house and locked herself in the bathroom due to the paranoia. She reported to police when they arrived her house that she was hearing voices of people who were going to kill her. In the ER, patients BG was 531 and it is reported she self removed her insulin pump, leading elevated BG levels putting patient at life threatening DKA. Patient at this time is a risk to herself and others and will fill out 303 paperwork. Blood glucose management continued by pharmacy monitoring and insulin recommendations. 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 Patient also had uncontrolled DM with blood glucose of 531 but was medically cleared in ER. Chief Complaint "Leave me alone" History of Present Illness 37 yo CF who has a history of uncontrolled DM, h/o depression and opiate use d/o , who was admitted on a 302 involuntary commitment for paranoid delusions of people trying to kill her. Patient also had uncontrolled DM with blood glucose of 531 but was medically cleared in ER. Patient uncooperative after multiple attempts to interview and stated "leave me alone so I can rest, I'm not crazy". Per 302, patient has been paranoid and has called police multiple times in last few days about people out to kill her. She also ran into a neighbors house and locked herself in the bathroom due to the paranoia. She reported to police when they arrived her house that she was hearing voices of people who were going to kill her. In the ER, patients BG was 531 and it is reported she self removed her insulin pump, leading elevated BG levels putting patient at life threatening DKA. Past Psychiatric History Current Psychiatric Diagnosis: anxiety, ADHD Describe Attempts in the Past: denies Allergies Allergy/AdvReac Type Severity Reaction Status Date / Time niacin Allergy Severe HIVES Verified 03/26/18 01:39 latex Allergy Mild RASH Verified 03/26/18 01:39 Home Medications Home Medications Medication Instructions Recorded Confirmed Type buspirone 30 mg PO QAM 03/26/18 03/26/18 History dextroamphetamine-amphetamine 30 mg PO QAM 03/26/18 03/26/18 History [Adderall XR] insulin aspart U-100 [Novolog 0 - 50 unit CONTINUOUS 03/26/18 03/26/18 History U-100 Insulin aspart] SUBCUTANEOUS INFUSION CONTINOUS insulin glargine [Lantus U-100 18 unit SUBCUT UD 03/26/18 03/26/18 History Insulin] insulin lispro [Humalog U-100 1 sliding scale dose SUBCUT UD 03/26/18 03/26/18 History Insulin] prazosin 1 mg PO HS 03/26/18 03/26/18 History Family History Family History of: None Family Mental Health History Comment: denies Alcohol History Hx of Alcohol Use Over the Past 12 Months: Yes ("occasional - 1 or 2 beers or mixed drinks") AUDIT Total Score: 1 Smoking Use Have You Smoked or Used Tobacco Products in the Last 30 Days: Yes tobacco type: cigarettes Smoking Status: Current every day smoker Smoking packs per day: 0.25 Substance History Hx of Prescription Med Misuse Over the Past 12 Months: No Hx of Over the Counter Med Misuse Over the Past 12 Months: No Hx of Inhalent Misuse Over the Past 12 Months: No Hx of Organic Substance Use Over the Past 12 Months: Yes (prescribed medical marijuana) Hx of Illegal Substances/Street Drug Use Over Past 12 Months: No Problems as a Result of Past Substance Use: None Identified Problems as a Result of Past Substance Use Comments: patient denies abuse; as history per records Personal History Living Arrangements: APartment Beliefs That Will Affect Care: None Patient History Medical History Thought disorder (Acute) Diabetes (Chronic) Social History Feels Safe at Home: Yes Smoking Status: Current every day smoker Tobacco Type: cigarettes Hx Alcohol Use: No Hx Substance Use: Yes substance use type: marijuana Beliefs That Will Affect Care: None Preferred Language: Korean Communication Ability: Effective Lead Systems Developer Required: No Review of Systems All systems reviewed & are unremarkable except as noted in HPI & below Physical Exam Psychiatric Orientation: alert, oriented to person and oriented to place Apperance: + disheveled; + inappropriately groomed Eye Contact: + poor eye contact Motor Behavior: no abnormal motor movements Speech: + loud speech Affect: + irritable affect and mood congruent with affect Thought Process: goal directed thought process Thought Content: + paranoid unable to assess unable to assess unable to assess Cognition: attention grossly intact Estimated Intelligence: average estimated intelligence Insight: + poor insight Judgement: + poor judgement Vital Signs (Past 24 Hours) Last Vital Signs Temp 36.7 C 03/27/18 06:45 Pulse 114 H 03/27/18 06:46 Resp 16 03/27/18 06:45 BP 104/57 L 03/27/18 06:46 Pulse Ox 98 03/27/18 00:23 A physical exam was performed in the ER prior to admission to the unit. I accept that physical as correct/medical clearance for the inpatient physical exam. Results & Data Laboratory Results Laboratory Results - last 24 hr 03/26/18 03/26/18 03/26/18 16:10 17:02 17:02 WBC RBC Hgb Hct MCV MCH MCHC RDW Std Deviation RDW Coeff of Bruna Plt Count MPV Immature Gran % (Auto) Neut % (Auto) Lymph % (Auto) Alfalfa % (Auto) Eos % (Auto) Baso % (Auto) Immature Gran # (Auto) Neut # (Auto) Lymph # (Auto) Alfalfa # (Auto) Eos # (Auto) Baso # (Auto) PT INR APTT PTT Ratio VBG pH 7.44 H VBG pCO2 42 VBG pO2 26 VBG HCO3 28 VBG O2 Saturation < 60.0 VBG Base Excess 3.1 Barometric Pressure 734.9 Sodium Potassium Chloride Carbon Dioxide Anion Gap BUN Creatinine Est Cr Clr Drug Dosing Est GFR ( Amer) Est GFR (Non-Af Amer) BUN/Creatinine Ratio Glucose POC Glucose 492 H* Calcium Total Bilirubin AST ALT Alkaline Phosphatase Total Protein Albumin Globulin Albumin/Globulin Ratio Lipase Beta-Hydroxybutyric Acd TSH Urine Color Urine Appearance Urine pH Ur Specific [place] Urine Protein Urine Glucose (UA) Urine Ketones Urine Blood Urine Nitrite Urine Bilirubin Urine Urobilinogen Ur Leukocyte Esterase POC Ur Test Salicylates 2.8 Urine Opiates Screen Ur Methadone, Qual Acetaminophen < 2 L Urine Barbiturates Ur Phencyclidine (PCP) U Amphetamin/Meth Scrn MDMA (Ecstasy) Screen U Benzodiazepines Scrn Ur Cocaine Metabolite U Marijuana (THC) Screen Ethyl Alcohol mg/dL 03/26/18 03/26/18 03/26/18 17:02 17:02 17:02 WBC 7.19 RBC 5.02 Hgb 14.8 Hct 42.5 MCV 84.7 MCH 29.5 MCHC 34.8 RDW Std Deviation 45.9 RDW Coeff of Bruna 14.9 H Plt Count 273 MPV 9.1 Immature Gran % (Auto) 0.1 Neut % (Auto) 65.4 Lymph % (Auto) 28.2 Alfalfa % (Auto) 5.3 Eos % (Auto) 0.6 Baso % (Auto) 0.4 Immature Gran # (Auto) 0.01 Neut # (Auto) 4.70 Lymph # (Auto) 2.03 Alfalfa # (Auto) 0.38 Eos # (Auto) 0.04 Baso # (Auto) 0.03 PT 10.5 INR 1.0 APTT 25.9 PTT Ratio 1.0 VBG pH VBG pCO2 VBG pO2 VBG HCO3 VBG O2 Saturation VBG Base Excess Barometric Pressure Sodium 132 L Potassium 4.1 Chloride 101 Carbon Dioxide 26 Anion Gap 5.0 BUN 9 Creatinine 0.95 Est Cr Clr Drug Dosing 64.7 Est GFR ( Amer) 89.3 Est GFR (Non-Af Amer) 77.1 BUN/Creatinine Ratio 10.0 Glucose 404 H* POC Glucose Calcium 9.9 Total Bilirubin 0.7 AST 18 ALT 36 Alkaline Phosphatase 129 H Total Protein 9.6 H Albumin 4.3 Globulin 5.3 H Albumin/Globulin Ratio 0.8 L Lipase 101 Beta-Hydroxybutyric Acd 1.48 TSH 1.370 Urine Color Urine Appearance Urine pH Ur Specific [place] Urine Protein Urine Glucose (UA) Urine Ketones Urine Blood Urine Nitrite Urine Bilirubin Urine Urobilinogen Ur Leukocyte Esterase POC Ur Test Salicylates Urine Opiates Screen Ur Methadone, Qual Acetaminophen Urine Barbiturates Ur Phencyclidine (PCP) U Amphetamin/Meth Scrn MDMA (Ecstasy) Screen U Benzodiazepines Scrn Ur Cocaine Metabolite U Marijuana (THC) Screen Ethyl Alcohol mg/dL 03/26/18 03/26/18 03/26/18 17:02 17:02 17:06 WBC RBC Hgb Hct MCV MCH MCHC RDW Std Deviation RDW Coeff of Bruna Plt Count MPV Immature Gran % (Auto) Neut % (Auto) Lymph % (Auto) Alfalfa % (Auto) Eos % (Auto) Baso % (Auto) Immature Gran # (Auto) Neut # (Auto) Lymph # (Auto) Alfalfa # (Auto) Eos # (Auto) Baso # (Auto) PT INR APTT PTT Ratio VBG pH VBG pCO2 VBG pO2 VBG HCO3 VBG O2 Saturation VBG Base Excess Barometric Pressure Sodium Potassium Chloride Carbon Dioxide Anion Gap BUN Creatinine Est Cr Clr Drug Dosing Est GFR ( Amer) Est GFR (Non-Af Amer) BUN/Creatinine Ratio Glucose POC Glucose Calcium Total Bilirubin AST ALT Alkaline Phosphatase Total Protein Albumin Globulin Albumin/Globulin Ratio Lipase Beta-Hydroxybutyric Acd TSH Cancelled Urine Color Urine Appearance Urine pH Ur Specific [place] Urine Protein Urine Glucose (UA) Urine Ketones Urine Blood Urine Nitrite Urine Bilirubin Urine Urobilinogen Ur Leukocyte Esterase POC Ur Test Salicylates Urine Opiates Screen Neg Ur Methadone, Qual Neg Acetaminophen Urine Barbiturates Neg Ur Phencyclidine (PCP) Neg U Amphetamin/Meth Scrn Pos H MDMA (Ecstasy) Screen Neg U Benzodiazepines Scrn Neg Ur Cocaine Metabolite Neg U Marijuana (THC) Screen Neg Ethyl Alcohol mg/dL < 3.0 03/26/18 03/26/18 03/26/18 17:06 17:52 19:41 WBC RBC Hgb Hct MCV MCH MCHC RDW Std Deviation RDW Coeff of Bruna Plt Count MPV Immature Gran % (Auto) Neut % (Auto) Lymph % (Auto) Alfalfa % (Auto) Eos % (Auto) Baso % (Auto) Immature Gran # (Auto) Neut # (Auto) Lymph # (Auto) Alfalfa # (Auto) Eos # (Auto) Baso # (Auto) PT INR APTT PTT Ratio VBG pH VBG pCO2 VBG pO2 VBG HCO3 VBG O2 Saturation VBG Base Excess Barometric Pressure Sodium Potassium Chloride Carbon Dioxide Anion Gap BUN Creatinine Est Cr Clr Drug Dosing Est GFR ( Amer) Est GFR (Non-Af Amer) BUN/Creatinine Ratio Glucose POC Glucose 346 H 152 H Calcium Total Bilirubin AST ALT Alkaline Phosphatase Total Protein Albumin Globulin Albumin/Globulin Ratio Lipase Beta-Hydroxybutyric Acd TSH Urine Color Yellow Urine Appearance Clear Urine pH 7.0 Ur Specific [place] 1.039 H Urine Protein Negative Urine Glucose (UA) 3+ H Urine Ketones Negative Urine Blood Negative Urine Nitrite Negative Urine Bilirubin Negative Urine Urobilinogen Negative Ur Leukocyte Esterase Negative POC Ur Test Salicylates Urine Opiates Screen Ur Methadone, Qual Acetaminophen Urine Barbiturates Ur Phencyclidine (PCP) U Amphetamin/Meth Scrn MDMA (Ecstasy) Screen U Benzodiazepines Scrn Ur Cocaine Metabolite U Marijuana (THC) Screen Ethyl Alcohol mg/dL 03/26/18 03/26/18 03/27/18 23:56 Unknown 08:25 WBC RBC Hgb Hct MCV MCH MCHC RDW Std Deviation RDW Coeff of Bruna Plt Count MPV Immature Gran % (Auto) Neut % (Auto) Lymph % (Auto) Alfalfa % (Auto) Eos % (Auto) Baso % (Auto) Immature Gran # (Auto) Neut # (Auto) Lymph # (Auto) Alfalfa # (Auto) Eos # (Auto) Baso # (Auto) PT INR APTT PTT Ratio VBG pH VBG pCO2 VBG pO2 VBG HCO3 VBG O2 Saturation VBG Base Excess Barometric Pressure Sodium Potassium Chloride Carbon Dioxide Anion Gap BUN Creatinine Est Cr Clr Drug Dosing Est GFR ( Amer) Est GFR (Non-Af Amer) BUN/Creatinine Ratio Glucose POC Glucose 291 H 531 H* Calcium Total Bilirubin AST ALT Alkaline Phosphatase Total Protein Albumin Globulin Albumin/Globulin Ratio Lipase Beta-Hydroxybutyric Acd TSH Urine Color Urine Appearance Urine pH Ur Specific [place] Urine Protein Urine Glucose (UA) Urine Ketones Urine Blood Urine Nitrite Urine Bilirubin Urine Urobilinogen Ur Leukocyte Esterase POC Ur Test NEG Salicylates Urine Opiates Screen Ur Methadone, Qual Acetaminophen Urine Barbiturates Ur Phencyclidine (PCP) U Amphetamin/Meth Scrn MDMA (Ecstasy) Screen U Benzodiazepines Scrn Ur Cocaine Metabolite U Marijuana (THC) Screen Ethyl Alcohol mg/dL 03/27/18 11:18 WBC RBC Hgb Hct MCV MCH MCHC RDW Std Deviation RDW Coeff of Bruna Plt Count MPV Immature Gran % (Auto) Neut % (Auto) Lymph % (Auto) Alfalfa % (Auto) Eos % (Auto) Baso % (Auto) Immature Gran # (Auto) Neut # (Auto) Lymph # (Auto) Alfalfa # (Auto) Eos # (Auto) Baso # (Auto) PT INR APTT PTT Ratio VBG pH VBG pCO2 VBG pO2 VBG HCO3 VBG O2 Saturation VBG Base Excess Barometric Pressure Sodium Potassium Chloride Carbon Dioxide Anion Gap BUN Creatinine Est Cr Clr Drug Dosing Est GFR ( Amer) Est GFR (Non-Af Amer) BUN/Creatinine Ratio Glucose POC Glucose 435 H* Calcium Total Bilirubin AST ALT Alkaline Phosphatase Total Protein Albumin Globulin Albumin/Globulin Ratio Lipase Beta-Hydroxybutyric Acd TSH Urine Color Urine Appearance Urine pH Ur Specific [place] Urine Protein Urine Glucose (UA) Urine Ketones Urine Blood Urine Nitrite Urine Bilirubin Urine Urobilinogen Ur Leukocyte Esterase POC Ur Test Salicylates Urine Opiates Screen Ur Methadone, Qual Acetaminophen Urine Barbiturates Ur Phencyclidine (PCP) U Amphetamin/Meth Scrn MDMA (Ecstasy) Screen U Benzodiazepines Scrn Ur Cocaine Metabolite U Marijuana (THC) Screen Ethyl Alcohol mg/dL Current Inpatient Medications Current Inpatient Medications: Current Inpatient Medications Acetaminophen (Tylenol) 650 mg PO Q4H PRN PRN Reason: Headache or Minor Fever Stop: 04/25/18 21:37 Al Hydrox/Mg Hydrox/Simethicone (Maalox) 30 ml PO Q4H PRN PRN Reason: GI Upset Stop: 04/25/18 21:37 Aripiprazole (Abilify) 5 mg PO BID JOAN Stop: 04/26/18 12:29 Bismuth Subsalicylate (Kaopectate) 15 ml PO PRN PRN PRN Reason: Loose Stool Stop: 04/25/18 21:37 Buspirone HCl (Buspar) 30 mg PO BID JOAN Stop: 04/25/18 23:44 Last Admin: 03/27/18 09:14 Dose: 30 mg Dextrose (Dextrose 50%) 25 - 50 ml IV UD PRN; Protocol PRN Reason: Hypoglycemia Protocol Stop: 04/25/18 23:55 Glucagon (Glucagen) 1 mg SQ UD PRN; Protocol PRN Reason: Hypoglycemia Protocol Stop: 04/25/18 23:55 Glucose (Glucose 40%) 15 - 30 gm PO UD PRN; Protocol PRN Reason: Hypoglycemia Protocol Stop: 04/25/18 23:55 Glucose (Dex4 Glucose) 4 - 8 tabs PO UD PRN; Protocol PRN Reason: Hypoglycemia Protocol Stop: 04/25/18 23:55 Hydroxyzine HCl (Vistaril) 25 mg PO Q4H PRN PRN Reason: Anxiety Stop: 04/25/18 21:37 Hydroxyzine HCl (Vistaril) 50 mg PO HSZ PRN PRN Reason: Insomnia Stop: 04/25/18 21:43 Insulin Aspart (Novolog Aspart) 0 units SC Q4 JOAN; Protocol Stop: 04/26/18 08:59 Last Admin: 03/27/18 09:16 Dose: 9 units Lorazepam (Ativan) 0.5 mg PO QID PRN PRN Reason: Anxiety Stop: 04/25/18 21:55 Magnesium Hydroxide (Milk Of Magnesia) 30 ml PO DAILY PRN PRN Reason: Heartburn Stop: 04/25/18 21:37 Miscellaneous (Remove Nicoderm Patch) 1 ea N/A QAM JOAN Stop: 04/26/18 08:59 Last Admin: 03/27/18 09:31 Dose: Not Given Miscellaneous (Carbohydrates For Hypoglycemia) 15 - 30 gm PO UD PRN PRN Reason: Hypoglycemia Treatment Stop: 04/25/18 23:55 Miscellaneous Information (Consult Glycemic Management Pharmacy) 1 ea N/A UD PRN PRN Reason: Consult Stop: 04/25/18 21:49 Nicotine (Nicoderm Cq) 21 mg TD QAM JOAN Stop: 04/26/18 08:59 Last Admin: 03/27/18 09:30 Dose: Not Given Nicotine Polacrilex (Nicorette 2mg) 1 piece MT UD PRN PRN Reason: Nicotine Withdrawal Stop: 04/25/18 21:43 Prazosin HCl (Prazosin Hcl) 1 mg PO HS JOAN Stop: 04/25/18 23:44 Last Admin: 03/27/18 00:22 Dose: 1 mg Sodium Chloride ([place] Nasal) 1 - 2 sprays NA PRN PRN PRN Reason: Nasal Dryness/Congestion Stop: 04/25/18 21:37 CPT Code CPT Code Initial Hospital Care: [id number]
[2018-03-27] MEDS: ARIPiprazole 5 MG TAB PO SCH ×2 (13:45→20:55)
[2018-03-27 13:51] LABS: BUN Creatinine Ratio 16.8 (10-20); Calcium 9.4 mg/dl (8.5-10.1); Creatinine Clr Calc Pharmacy 48.8 ml/min; Est GFR (African American) 63.5; Est GFR (Non-African American) 54.8
[2018-03-27] MEDS: NICOTINE 14 MG/24 HR PATCH TD SCH (15:31)
[2018-03-27] MEDS ORDERED: risperiDONE 1 MG TABLET PO SCH (21:00)
[2018-03-27] MEDS ORDERED: INSULIN GLARGINE SOLOSTAR 100 UNITS/ML 3 ML PEN SC SCH (22:00)
[2018-03-28] MEDS: INSULIN ASPART 100 UNITS/ML VIAL SC SCH ×7 (00:11→21:04)
[2018-03-28] MEDS ORDERED: INSULIN GLARGINE 100 UNIT/ML VIAL SC ONE (00:30)
[2018-03-28 09:11] LABS: Estimated Average Glucose 232 mg/dl
[2018-03-28] MEDS ORDERED: INSULIN GLARGINE 100 UNIT/ML VIAL SC STA ×2 (09:17→13:06)
[2018-03-28] MEDS: BusPIRone 15 MG TAB PO SCH ×2 (09:24→21:02)
[2018-03-28] MEDS: ARIPiprazole 5 MG TAB PO SCH ×2 (09:25→21:02)
[2018-03-28] MEDS: NICOTINE 14 MG/24 HR PATCH TD SCH (09:25)
--- NOTE | 2018-03-28 10:19 | Psychiatric Progress Note ---
Date of Service March 28, 2018 Impression / Recommendations Impression 37 yo CF who has a history of uncontrolled DM, h/o depression and opiate use d/o , who was admitted on a 302 involuntary commitment for paranoid delusions of people trying to kill her. Patient also had uncontrolled DM with blood glucose of 531 but was medically cleared in ER. Per 302, patient has been paranoid and has called police multiple times in last few days about people out to kill her. She also ran into a neighbors house and locked herself in the bathroom due to the paranoia. She reported to police when they arrived her house that she was hearing voices of people who were going to kill her. In the ER, patients BG was 531 and it is reported she self removed her insulin pump, leading to elevated BG levels putting patient at life threatening DKA. Blood glucose management continued by pharmacy monitoring and insulin recommendations. 303 filed on . 03/28/18: Patient seemed to be with mild improvement however continues to be irritable, suspicious thoughts and her blood sugars continue to be in high. 303 committment up to 20 days obtained today and will continue to treat for stabilization. BG being managed by pharmacy monitoring and insulin recs. 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 she was able to fall back to sleep easily afterward. Meal Information Percent Meal Consumed - Breakfast: 25 Percent Meal Consumed - Lunch: 0 Percent Meal Consumed - Dinner: 100 Nutrition Comment: documented from the pt. meal log Subjective Subjective Patient stated that since her blood glucose are decreasing, she is feeling a little better. States her muscles still ache and she a little tired. She became irritable when asked about the statements in the 302 and her paranoia about being killed. She states she went to the neighbors and she had let her and her dog in, but then just started yelling at them and treating them like she intruded and called the police. She also stated that she was feeling there was some suspicious activity outside of her place and couldn't see through the peep hole so she called the police. She denies at this time that she thought or thinks that someone is going to kill her. Patient then stated to the physician "why don't you look at me when you talk to me?" and "why don't you look in my eyes and stop being dodgy eyed". I asked what difference does this make I don't look into her eyes the whole time and she stated "it makes you seem shady". Patient was seen & assessed and interval progress reviewed with Treatment Team and Nursing Physical Exam Psychiatric A+Ox3, euthymic affect Apperance: appropriately dressed Eye Contact: + fair eye contact Motor Behavior: no abnormal motor movements Speech: normal rate/rhythm/volume of speech Affect: + irritable affect and mood congruent with affect Thought Process: goal directed thought process Thought Content: + paranoid Suicidal Thoughts: denies suicidal thoughts Homicidal Thoughts: denies homicidal thoughts Hallucinations: no auditory hallucinations and no visual hallucinations Cognition: attention grossly intact Estimated Intelligence: average estimated intelligence Insight: + poor insight Judgement: + poor judgement Vital Signs (Past 24 Hours) Last Vital Signs Temp 36.6 C 03/28/18 06:48 Pulse 99 H 03/28/18 06:50 Resp 16 03/28/18 06:48 BP 109/60 03/28/18 06:50 Pulse Ox 98 03/27/18 00:23 Results & Data Laboratory Results Laboratory Results - last 24 hr 03/27/18 03/27/18 03/27/18 11:18 13:14 13:15 Sodium 131 L Potassium 4.0 Chloride 99 Carbon Dioxide 22 Anion Gap 10.0 BUN 21 H D Creatinine 1.26 H D Est Cr Clr Drug Dosing 48.8 Est GFR ( Amer) 63.5 Est GFR (Non-Af Amer) 54.8 BUN/Creatinine Ratio 16.8 Glucose 318 H POC Glucose 435 H* 325 H Estimat Average Glucose Hemoglobin A1c Calcium 9.4 Beta-Hydroxybutyric Acd Specimen Hemolysis 03/27/18 03/27/18 03/27/18 15:51 17:56 20:34 Sodium Potassium Chloride Carbon Dioxide Anion Gap BUN Creatinine Est Cr Clr Drug Dosing Est GFR ( Amer) Est GFR (Non-Af Amer) BUN/Creatinine Ratio Glucose POC Glucose 337 H 226 H 161 H Estimat Average Glucose Hemoglobin A1c Calcium Beta-Hydroxybutyric Acd Specimen Hemolysis 03/28/18 03/28/18 03/28/18 00:05 04:08 08:32 Sodium Potassium Chloride Carbon Dioxide Anion Gap BUN Creatinine Est Cr Clr Drug Dosing Est GFR ( Amer) Est GFR (Non-Af Amer) BUN/Creatinine Ratio Glucose POC Glucose 367 H* 293 H 242 H Estimat Average Glucose Hemoglobin A1c Calcium Beta-Hydroxybutyric Acd Specimen Hemolysis 03/28/18 08:51 Sodium Potassium Chloride Carbon Dioxide Anion Gap BUN Creatinine Est Cr Clr Drug Dosing Est GFR ( Amer) Est GFR (Non-Af Amer) BUN/Creatinine Ratio Glucose POC Glucose Estimat Average Glucose 232 Hemoglobin A1c 9.7 H Calcium Beta-Hydroxybutyric Acd Specimen Hemolysis Current Inpatient Medications Current Inpatient Medications: Current Inpatient Medications Acetaminophen (Tylenol) 650 mg PO Q4H PRN PRN Reason: Headache or Minor Fever Stop: 04/25/18 21:37 Al Hydrox/Mg Hydrox/Simethicone (Maalox) 30 ml PO Q4H PRN PRN Reason: GI Upset Stop: 04/25/18 21:37 Aripiprazole (Abilify) 5 mg PO BID [facility] Stop: 04/26/18 12:29 Last Admin: 03/28/18 09:25 Dose: 5 mg Bismuth Subsalicylate (Kaopectate) 15 ml PO PRN PRN PRN Reason: Loose Stool Stop: 04/25/18 21:37 Buspirone HCl (Buspar) 30 mg PO BID [facility] Stop: 04/25/18 23:44 Last Admin: 03/28/18 09:24 Dose: 30 mg Dextrose (Dextrose 50%) 25 - 50 ml IV UD PRN; Protocol PRN Reason: Hypoglycemia Protocol Stop: 04/25/18 23:55 Glucagon (Glucagen) 1 mg SQ UD PRN; Protocol PRN Reason: Hypoglycemia Protocol Stop: 04/25/18 23:55 Glucose (Glucose 40%) 15 - 30 gm PO UD PRN; Protocol PRN Reason: Hypoglycemia Protocol Stop: 04/25/18 23:55 Glucose (Dex4 Glucose) 4 - 8 tabs PO UD PRN; Protocol PRN Reason: Hypoglycemia Protocol Stop: 04/25/18 23:55 Hydroxyzine HCl (Vistaril) 25 mg PO Q4H PRN PRN Reason: Anxiety Stop: 04/25/18 21:37 Hydroxyzine HCl (Vistaril) 50 mg PO HSZ PRN PRN Reason: Insomnia Stop: 04/25/18 21:43 Insulin Aspart (Novolog Aspart) 0 units SC Q4 JOAN; Protocol Stop: 04/26/18 08:59 Last Admin: 03/28/18 09:21 Dose: 4 units Lorazepam (Ativan) 0.5 mg PO QID PRN PRN Reason: Anxiety Stop: 04/25/18 21:55 Magnesium Hydroxide (Milk Of Magnesia) 30 ml PO DAILY PRN PRN Reason: Heartburn Stop: 04/25/18 21:37 Miscellaneous (Remove Nicoderm Patch) 1 ea N/A QAM JOAN Stop: 04/26/18 08:59 Last Admin: 03/28/18 09:27 Dose: Not Given Miscellaneous (Carbohydrates For Hypoglycemia) 15 - 30 gm PO UD PRN PRN Reason: Hypoglycemia Treatment Stop: 04/25/18 23:55 Miscellaneous Information (Consult Glycemic Management Pharmacy) 1 ea N/A UD PRN PRN Reason: Consult Stop: 04/25/18 21:49 Nicotine (Nicoderm Cq) 14 mg TD QAM JOAN Stop: 04/26/18 13:59 Last Admin: 03/28/18 09:25 Dose: 14 mg Nicotine Polacrilex (Nicorette 2mg) 1 piece MT UD PRN PRN Reason: Nicotine Withdrawal Stop: 04/25/18 21:43 Last Admin: 03/28/18 10:13 Dose: 1 piece Prazosin HCl (Prazosin Hcl) 1 mg PO HS JOAN Stop: 04/25/18 23:44 Last Admin: 03/27/18 20:55 Dose: 1 mg Sodium Chloride ([place] Nasal) 1 - 2 sprays NA PRN PRN PRN Reason: Nasal Dryness/Congestion Stop: 04/25/18 21:37 Post Discharge Appointments Primary Care Physician Name Of Family Doctor: Dr. Tristan Zhu Therapist Name of Therapist: Kervin Date of Therapist Appointment: 04/05/18 [employer] Name of [employer]: none Contact Information Discharge Discharge Address: [address] [place] [address] CPT Code CPT Code 88820 _ (1) Unspecified psychosis Psychosis type: Schizoaffective disorder type: Schizophrenia type:
--- NOTE | 2018-03-28 13:14 | Pharmacy Report ---
Pharmacy Glycemic Short Note 2 - Date of Service March 28, 2018 - Glycemic Short BSG Results (Last 24 hours): 03/27/18 03/27/18 03/27/18 13:14 13:15 15:51 Glucose 318 H POC Glucose 325 H 337 H 03/27/18 03/27/18 03/28/18 17:56 20:34 00:05 Glucose POC Glucose 226 H 161 H 367 H* 03/28/18 03/28/18 03/28/18 04:08 08:32 12:19 Glucose POC Glucose 293 H 242 H 330 H ASSESSMENT: * I met with Ms. Bentley myself this afternoon. We discussed her home regimen and her BSGs over the preceding 24hrs. She admitted to snacking overnight and that she would strongly prefer a once daily lantus dose. I told her that I would remove the 00,04 checks if she could commit to 3 meals a day and a small snack at HS. She seemed agreeable to this. * Will give additional 5 units of lantus STAT (total of 18 units for 03/28/18) PLAN FOR INPATIENT GLYCEMIC CONTROL: * Basal insulin * Lantus dose for AM of 03/29/18 predicated on FBS * Bolus insulin - tighten * NovoLog per scale ACHS or Q6hrs while NPO * Goal Range: Low 110 mg/dL - High 140 mg/dL * Correction Factor: 45 mg/dL/unit * Nutritional / Prandial insulin per carb ratio of 1 unit per 15 grams CHO consumed
[2018-03-28] MEDS: INSULIN ASPART 100 UNITS/ML 3 ML PEN SC SCH (15:54)
[2018-03-28] MEDS: PRAZOSIN HCL 1 MG CAP PO SCH (21:02)
[2018-03-28] MEDS: LORazepam 0.5 MG TAB PO PRN (21:16)
[2018-03-29] MEDS ORDERED: INSULIN ASPART 100 UNITS/ML VIAL SC ONE ×2 (02:00→19:15)
[2018-03-29] MEDS ORDERED: INSULIN GLARGINE 100 UNIT/ML VIAL SC STA ×2 (08:42→19:11)
[2018-03-29] MEDS: BusPIRone 15 MG TAB PO SCH ×2 (08:57→21:41)
[2018-03-29] MEDS: ARIPiprazole 5 MG TAB PO SCH (08:57)
[2018-03-29] MEDS: NICOTINE 14 MG/24 HR PATCH TD SCH ×2 (08:58→09:13)
[2018-03-29] MEDS: INSULIN ASPART 100 UNITS/ML VIAL SC SCH ×4 (09:00→22:21)
[2018-03-29] MEDS: LORazepam 0.5 MG TAB PO PRN (10:50)
--- NOTE | 2018-03-29 11:53 | Psychiatric Progress Note ---
Date of Service March 29, 2018 Impression / Recommendations Impression 37 yo CF who has a history of uncontrolled DM, h/o depression and opiate use d/o , who was admitted on a 302 involuntary commitment for paranoid delusions of people trying to kill her. Patient also had uncontrolled DM with blood glucose of 531 but was medically cleared in ER. Per 302, patient has been paranoid and has called police multiple times in last few days about people out to kill her. She also ran into a neighbors house and locked herself in the bathroom due to the paranoia. She reported to police when they arrived her house that she was hearing voices of people who were going to kill her. In the ER, patients BG was 531 and it is reported she self removed her insulin pump, leading to elevated BG levels putting patient at life threatening DKA. Blood glucose management continued by pharmacy monitoring and insulin recommendations. 303 filed on . 03/28/18: Patient seemed to be with mild improvement however continues to be irritable, suspicious thoughts and her blood sugars continue to be in high. 303 committment up to 20 days obtained today and will continue to treat for stabilization. BG being managed by pharmacy monitoring and insulin recs. 03/29/18: Seems to be with some improvement today and did not appreciate any paranoia. Will change abilify to risperdal 1mg qhs. Patietn resolving paranoia and change from original presentation may be due to her elevated blood glucose and poorly controlled diabetes. High levels of blood glucose is with a risk of DKA and altered mental status and may the cause of the patients original presentation. However, given patients severity of paranoia will continue antipsychotic therapy and for symptoms to be assessed on follow up outpt. 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 pt on q-15 minute checks Meal Information Percent Meal Consumed - Breakfast: 100 Percent Meal Consumed - Lunch: 100 Percent Meal Consumed - Dinner: 50 Nutrition Comment: documented from the pt. meal log Subjective Subjective Patient reports that she "a little better today" and states she is kind of tired. She reports that she did not purposefully remove her insulin pump and that she was out of insulin. She states she does not think that anyone is out to kill her and denies SI/HI/aVH. She states she is in a transition from her insurance to another one and we discussed change of Abilify to Risperdal to which she agreed. Patient was seen & assessed and interval progress reviewed with Nursing Physical Exam Psychiatric A+Ox3, euthymic affect Apperance: appropriately dressed Eye Contact: + fair eye contact Motor Behavior: no abnormal motor movements Speech: normal rate/rhythm/volume of speech Affect: euthymic affect and mood congruent with affect Thought Process: goal directed thought process Thought Content: not paranoid and no delusions Suicidal Thoughts: denies suicidal thoughts Homicidal Thoughts: denies homicidal thoughts Hallucinations: no auditory hallucinations and no visual hallucinations Cognition: recent memory grossly intact and remote memory grossly intact Estimated Intelligence: average estimated intelligence developing developing Vital Signs (Past 24 Hours) Last Vital Signs Temp 36.8 C 03/29/18 06:52 Pulse 86 03/29/18 06:53 Resp 18 03/29/18 06:52 BP 134/75 03/29/18 06:53 Pulse Ox 98 03/27/18 00:23 Results & Data Laboratory Results Laboratory Results - last 24 hr 03/28/18 03/28/18 03/28/18 12:19 17:15 20:45 POC Glucose 330 H 325 H 175 H 03/29/18 03/29/18 02:02 08:30 POC Glucose 239 H 378 H* Current Inpatient Medications Current Inpatient Medications: Current Inpatient Medications Acetaminophen (Tylenol) 650 mg PO Q4H PRN PRN Reason: Headache or Minor Fever Stop: 04/25/18 21:37 Al Hydrox/Mg Hydrox/Simethicone (Maalox) 30 ml PO Q4H PRN PRN Reason: GI Upset Stop: 04/25/18 21:37 Bismuth Subsalicylate (Kaopectate) 15 ml PO PRN PRN PRN Reason: Loose Stool Stop: 04/25/18 21:37 Buspirone HCl (Buspar) 30 mg PO BID JOAN Stop: 04/25/18 23:44 Last Admin: 03/29/18 08:57 Dose: 30 mg Dextrose (Dextrose 50%) 25 - 50 ml IV UD PRN; Protocol PRN Reason: Hypoglycemia Protocol Stop: 04/25/18 23:55 Glucagon (Glucagen) 1 mg SQ UD PRN; Protocol PRN Reason: Hypoglycemia Protocol Stop: 04/25/18 23:55 Glucose (Glucose 40%) 15 - 30 gm PO UD PRN; Protocol PRN Reason: Hypoglycemia Protocol Stop: 04/25/18 23:55 Glucose (Dex4 Glucose) 4 - 8 tabs PO UD PRN; Protocol PRN Reason: Hypoglycemia Protocol Stop: 04/25/18 23:55 Hydroxyzine HCl (Vistaril) 25 mg PO Q4H PRN PRN Reason: Anxiety Stop: 04/25/18 21:37 Hydroxyzine HCl (Vistaril) 50 mg PO HSZ PRN PRN Reason: Insomnia Stop: 04/25/18 21:43 Insulin Aspart (Novolog Aspart) 0 units SC [facility]; Protocol Stop: 04/27/18 13:14 Last Admin: 03/29/18 09:00 Dose: 11 units Lorazepam (Ativan) 0.5 mg PO QID PRN PRN Reason: Anxiety Stop: 04/25/18 21:55 Last Admin: 03/29/18 10:50 Dose: 0.5 mg Magnesium Hydroxide (Milk Of Magnesia) 30 ml PO DAILY PRN PRN Reason: Heartburn Stop: 04/25/18 21:37 Miscellaneous (Remove Nicoderm Patch) 1 ea N/A QAM JOAN Stop: 04/26/18 08:59 Last Admin: 03/29/18 09:43 Dose: Not Given Miscellaneous (Carbohydrates For Hypoglycemia) 15 - 30 gm PO UD PRN PRN Reason: Hypoglycemia Treatment Stop: 04/25/18 23:55 Miscellaneous Information (Consult Glycemic Management Pharmacy) 1 ea N/A UD PRN PRN Reason: Consult Stop: 04/25/18 21:49 Nicotine (Nicoderm Cq) 14 mg TD QAM JOAN Stop: 04/26/18 13:59 Last Admin: 03/29/18 09:13 Dose: Not Given Nicotine Polacrilex (Nicorette 2mg) 1 piece MT UD PRN PRN Reason: Nicotine Withdrawal Stop: 04/25/18 21:43 Last Admin: 03/28/18 10:13 Dose: 1 piece Prazosin HCl (Prazosin Hcl) 1 mg PO HS JOAN Stop: 04/25/18 23:44 Last Admin: 03/28/18 21:02 Dose: 1 mg Risperidone (Risperdal) 1 mg PO HS JOAN Stop: 04/28/18 21:59 Sodium Chloride (Joes Nasal) 1 - 2 sprays NA PRN PRN PRN Reason: Nasal Dryness/Congestion Stop: 04/25/18 21:37 Post Discharge Appointments Primary Care Physician Name Of Family Doctor: Marko Carl Psychiatrist Date of Appointment with Psychiatrist: 04/03/18 Time of Appointment with Psychiatrist: 10:20am Therapist Name of Therapist: Marko Aviles Date of Therapist Appointment: 04/05/18 Time of Therapist Appointment: 11am Toll Testboard Worker Name of Toll Testboard Worker: Symone SANZ Date of Appointment with Toll Testboard Worker: 04/11/18 Contact Information Discharge Discharge Address: [address] [place] [address] CLEVE Carmona [facility] CPT Code CPT Code 30847 _ (1) Unspecified psychosis Psychosis type: Schizoaffective disorder type: Schizophrenia type:
--- NOTE | 2018-03-29 13:34 | Pharmacy Report ---
Pharmacy Glycemic Short Note 2 - Date of Service March 29, 2018 - Glycemic Short BSG Results (Last 24 hours): 03/28/18 03/28/18 03/29/18 17:15 20:45 02:02 POC Glucose 325 H 175 H 239 H 03/29/18 03/29/18 08:30 12:03 POC Glucose 378 H* 396 H* ASSESSMENT: * Ms. Bentley's BSGs over the preceding 24hrs have, unfortunately, been uncontrolled. [phone]/dL. She required 50 units of insulin yesterday, 03/28/18. I am unsure as to the etiology of her sustained hyperglycemia: ?snacking ?basal deficiency. Nonetheless, we gave 17 units of lantus this AM. Her lunch BSG was 396mg/dL. I will hold off on changing her insulin until we start to see the effects of this larger lantus dose. * I did discuss with her yesterday her heavy carb intake. She vehemently refused to curb her carb intake and promised to lash out if I ordered a carb restricted diet. * Please do not order any overnight accuchecks for Ms. Bentley PLAN FOR INPATIENT GLYCEMIC CONTROL: * Basal insulin * gave 17 units this AM. No further metabolic coverage needed at this juncture * Bolus insulin * NovoLog per scale ACHS or Q6hrs while NPO * Goal Range: Low 110 mg/dL - High 140 mg/dL * Correction Factor: 45 mg/dL/unit * Nutritional / Prandial insulin per carb ratio of 1 unit per 12 grams CHO consumed
[2018-03-29] MEDS: PRAZOSIN HCL 1 MG CAP PO SCH (21:41)
[2018-03-29] MEDS: risperiDONE 1 MG TABLET PO SCH (21:41)
[2018-03-30] MEDS ORDERED: INSULIN ASPART 100 UNITS/ML VIAL SC ONE (00:15)
[2018-03-30] MEDS: BusPIRone 15 MG TAB PO SCH ×2 (09:07→21:15)
[2018-03-30] MEDS ORDERED: INSULIN GLARGINE SOLOSTAR 100 UNITS/ML 3 ML PEN SC STA (09:10)
[2018-03-30] MEDS: INSULIN ASPART 100 UNITS/ML VIAL SC SCH ×4 (09:11→21:17)
[2018-03-30] MEDS ORDERED: INSULIN GLARGINE 100 UNIT/ML VIAL SC STA (09:54)
[2018-03-30] MEDS: NICOTINE 14 MG/24 HR PATCH TD SCH (11:08)
[2018-03-30 11:20] LABS: Amphetamine Urine, Confirm 2780 NG/ML (CUTOF=250)
--- NOTE | 2018-03-30 11:59 | Psychiatric Progress Note ---
Date of Service March 30, 2018 Impression / Recommendations Impression 37 yo CF who has a history of uncontrolled DM, h/o depression and opiate use d/o , who was admitted on a 302 involuntary commitment for paranoid delusions of people trying to kill her. Patient also had uncontrolled DM with blood glucose of 531 but was medically cleared in ER. Per 302, patient has been paranoid and has called police multiple times in last few days about people out to kill her. She also ran into a neighbors house and locked herself in the bathroom due to the paranoia. She reported to police when they arrived her house that she was hearing voices of people who were going to kill her. In the ER, patients BG was 531 and it is reported she self removed her insulin pump, leading to elevated BG levels putting patient at life threatening DKA. Blood glucose management continued by pharmacy monitoring and insulin recommendations. 303 filed on . 03/28/18: Patient seemed to be with mild improvement however continues to be irritable, suspicious thoughts and her blood sugars continue to be in high. 303 committment up to 20 days obtained today and will continue to treat for stabilization. BG being managed by pharmacy monitoring and insulin recs. 03/29/18: Seems to be with some improvement today and did not appreciate any paranoia. Will change abilify to risperdal 1mg qhs. Patietn resolving paranoia and change from original presentation may be due to her elevated blood glucose and poorly controlled diabetes. High levels of blood glucose is with a risk of DKA and altered mental status and may the cause of the patients original presentation. However, given patients severity of paranoia will continue antipsychotic therapy and for symptoms to be assessed on follow up outpt. Will continue have pharmacy monitoring and insulin treatment to stabilize patient blood glucose levels 03/30/18: Patient seems to with continued improvement and seems to be without paranoia or delusions. Is cooperative and participating in groups. Will need to get insulin pump and proper dosing to be able to keep blood glucose in control. Recommended patient to continue Risperdal and follow up with outpt provider to discuss further treatment course. Denies SI/HI/aVH. 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 BSG was 269 and received cover. Meal Information Percent Meal Consumed - Breakfast: 100 Percent Meal Consumed - Lunch: 100 Percent Meal Consumed - Dinner: 100 Nutrition Comment: documented from the pt. meal log Subjective Subjective Patient states her mood is "better" and reports if her glucose is in control than she wouldn't have been admitted. She denies that she was paranoid and denies she thinks people are out to kill her. Denies SI/hI/aVH. Reports she thinks that she got a headache after risperdal last night, however no other reported side effects. Discussed continuing medications and will observe for any changes. She agreed to this. Patient was seen & assessed and interval progress reviewed with Nursing Physical Exam Psychiatric A+Ox3, euthymic affect Apperance: appropriately dressed and appropriately groomed Eye Contact: + fair eye contact Motor Behavior: no abnormal motor movements Speech: normal rate/rhythm/volume of speech Affect: euthymic affect and mood congruent with affect Thought Process: linear/logical thought process Thought Content: reality based without delusions; not paranoid and no delusions Suicidal Thoughts: denies suicidal thoughts Homicidal Thoughts: denies homicidal thoughts Hallucinations: no auditory hallucinations and no visual hallucinations Cognition: attention grossly intact Estimated Intelligence: average estimated intelligence Insight: + fair insight Judgement: + fair judgement Vital Signs (Past 24 Hours) Last Vital Signs Temp 36.8 C 03/30/18 06:50 Pulse 97 H 03/30/18 06:51 Resp 16 03/30/18 06:50 BP 122/77 03/30/18 06:51 Pulse Ox 98 03/27/18 00:23 Results & Data Laboratory Results Laboratory Results - last 24 hr 03/26/18 03/29/18 03/29/18 17:06 12:03 17:12 POC Glucose 396 H* 385 H* U Amphetamines Confirm 2780 A U Methamphetamin Confrm NEGATIVE 03/29/18 03/29/18 03/29/18 17:14 19:02 20:23 POC Glucose 402 H* 366 H* 158 H U Amphetamines Confirm U Methamphetamin Confrm 03/29/18 03/29/18 03/30/18 21:36 23:59 08:43 POC Glucose 142 H 269 H 269 H U Amphetamines Confirm U Methamphetamin Confrm Current Inpatient Medications Current Inpatient Medications: Current Inpatient Medications Acetaminophen (Tylenol) 650 mg PO Q4H PRN PRN Reason: Headache or Minor Fever Stop: 04/25/18 21:37 Last Admin: 03/30/18 11:07 Dose: 650 mg Al Hydrox/Mg Hydrox/Simethicone (Maalox) 30 ml PO Q4H PRN PRN Reason: GI Upset Stop: 04/25/18 21:37 Bismuth Subsalicylate (Kaopectate) 15 ml PO PRN PRN PRN Reason: Loose Stool Stop: 04/25/18 21:37 Buspirone HCl (Buspar) 30 mg PO BID JOAN Stop: 04/25/18 23:44 Last Admin: 03/30/18 09:07 Dose: 30 mg Dextrose (Dextrose 50%) 25 - 50 ml IV UD PRN; Protocol PRN Reason: Hypoglycemia Protocol Stop: 04/25/18 23:55 Glucagon (Glucagen) 1 mg SQ UD PRN; Protocol PRN Reason: Hypoglycemia Protocol Stop: 04/25/18 23:55 Glucose (Glucose 40%) 15 - 30 gm PO UD PRN; Protocol PRN Reason: Hypoglycemia Protocol Stop: 04/25/18 23:55 Glucose (Dex4 Glucose) 4 - 8 tabs PO UD PRN; Protocol PRN Reason: Hypoglycemia Protocol Stop: 04/25/18 23:55 Hydroxyzine HCl (Vistaril) 25 mg PO Q4H PRN PRN Reason: Anxiety Stop: 04/25/18 21:37 Hydroxyzine HCl (Vistaril) 50 mg PO HSZ PRN PRN Reason: Insomnia Stop: 04/25/18 21:43 Insulin Aspart (Novolog Aspart) 0 units SC [facility] JOAN; Protocol Stop: 04/27/18 13:14 Last Admin: 03/30/18 09:11 Dose: 12 units Lorazepam (Ativan) 0.5 mg PO QID PRN PRN Reason: Anxiety Stop: 04/25/18 21:55 Last Admin: 03/29/18 10:50 Dose: 0.5 mg Magnesium Hydroxide (Milk Of Magnesia) 30 ml PO DAILY PRN PRN Reason: Heartburn Stop: 04/25/18 21:37 Miscellaneous (Remove Nicoderm Patch) 1 ea N/A QAM JOAN Stop: 04/26/18 08:59 Last Admin: 03/30/18 11:10 Dose: Not Given Miscellaneous (Carbohydrates For Hypoglycemia) 15 - 30 gm PO UD PRN PRN Reason: Hypoglycemia Treatment Stop: 04/25/18 23:55 Miscellaneous Information (Consult Glycemic Management Pharmacy) 1 ea N/A UD PRN PRN Reason: Consult Stop: 04/25/18 21:49 Nicotine (Nicoderm Cq) 14 mg TD QAM JOAN Stop: 04/26/18 13:59 Last Admin: 03/30/18 11:08 Dose: 14 mg Nicotine Polacrilex (Nicorette 2mg) 1 piece MT UD PRN PRN Reason: Nicotine Withdrawal Stop: 04/25/18 21:43 Last Admin: 03/28/18 10:13 Dose: 1 piece Prazosin HCl (Prazosin Hcl) 1 mg PO HS JOAN Stop: 04/25/18 23:44 Last Admin: 03/29/18 21:41 Dose: 1 mg Risperidone (Risperdal) 1 mg PO HS JOAN Stop: 04/28/18 21:59 Last Admin: 03/29/18 21:41 Dose: 1 mg Sodium Chloride (Paragon Nasal) 1 - 2 sprays NA PRN PRN PRN Reason: Nasal Dryness/Congestion Stop: 04/25/18 21:37 Post Discharge Appointments Primary Care Physician Name Of Family Doctor: Marko Carl Psychiatrist Date of Appointment with Psychiatrist: 04/03/18 Time of Appointment with Psychiatrist: 10:20am Therapist Name of Therapist: Marko Aviles Date of Therapist Appointment: 04/05/18 Time of Therapist Appointment: 11am Route Rider Name of Route Rider: Symone SANZ Date of Appointment with Route Rider: 04/11/18 Contact Information Discharge Discharge Address: [address] [place] [address] CLEVE Carmona [facility] CPT Code CPT Code 64130 _ (1) Unspecified psychosis Psychosis type: Schizoaffective disorder type: Schizophrenia type:
[2018-03-30] MEDS: LORazepam 0.5 MG TAB PO PRN ×2 (13:16→21:16)
[2018-03-30] MEDS: PRAZOSIN HCL 1 MG CAP PO SCH (21:15)
[2018-03-30] MEDS: risperiDONE 1 MG TABLET PO SCH (21:16)
[2018-03-31] MEDS: NICOTINE 14 MG/24 HR PATCH TD SCH (08:17)
[2018-03-31] MEDS: BusPIRone 15 MG TAB PO SCH ×2 (08:17→21:00)
[2018-03-31] MEDS: INSULIN ASPART 100 UNITS/ML VIAL SC SCH ×4 (09:00→21:06)
[2018-03-31] MEDS: LORazepam 0.5 MG TAB PO PRN ×2 (09:01→21:05)
[2018-03-31] MEDS ORDERED: INSULIN GLARGINE 100 UNIT/ML VIAL SC ONE (09:15)
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
--- NOTE | 2018-03-31 12:54 | Pharmacy Report ---
Glycemic Control Progress Note - Date of Service March 31, 2018 - Scope Glycemic Pharmacist consulted for glycemic control to write orders per [facility] ED inpatient glycemic control protocol. - Objective Accuchecks BSG(last 24 hours):: 03/30/18 03/30/18 03/30/18 12:25 12:27 15:36 POC Glucose 384 H* 444 H* 198 H 03/30/18 03/30/18 03/31/18 17:16 20:23 08:08 POC Glucose 217 H 136 H 271 H HbA1c:: Hemoglobin A1c 9.7 % (4.5-5.6) H 03/28/18 08:51 - Recent Pertinent Medications The patient is currently receiving: * Basal insulin: Lantus 20 units every 24 hours * Correctional Insulin: Novolog Correction per scale ACHS Goal Range: Low 110 mg/dL - High 140 mg/dL Correction Factor: 35 mg/dL/unit * Prandial insulin: Per carb ratio of 1 unit per 10 grams CHO consumed - Outpatient Anti-Diabetic Meds Novolog pump Basal rate = 0.65 units/hr CF = 50 CR = 20 - Assessment & Plan ASSESSMENT: * See progress note from 03/27/18 for more background info, in short: * Pt receiving SQ basal bolus insulin regimen for hyperglycemia secondary to baseline DM (outpatient regimen on hold). * Patient is currently receiving an average of 63 units of insulin per day * 20 units of basal insulin * 43 units of prandial/correctional insulin * BSGs ranging 136 - 384 mg/dl over the past 24hrs (only one blood sugar under 200 mg/dL) * Changes needed to insulin regimen: * AM Fasting BSG = 271 mg/dl. This is above goal range for patient based on inpatient targets and co-morbidities. Will increase basal insulin slightly to 22 units per day. Patient does snack throughout the day but AM fastings trend high the entire visit. Suspect that patient may benefit from twice daily Lantus injections but since patient should be leaving tomorrow will not initiate. Patient's supplies are here. * Post-prandial BSGs do tend to stack. Will continue tighter CF/CR for lunch then loosen for dinner. * Total daily dose = ? units. While hospitalized it is closer to 60-70 units/ day. * Additional notes / comments: Met with patient with RN. Patient was insistent on receiving her insulin pump. Did not recommend this secondary to concern for hypoglycemia. Patient eventually agreed to continue basal -bolus. PLAN FOR INPATIENT GLYCEMIC CONTROL: * Increasing Lantus 22 units SQ x1 * Continuing correction factor of 35 mg/dl/unit --> loosen to 40 at dinner * Continuing carb ratio of 1 unit per 10 grams CHO consumed --> loosen to 12 at dinner * Continuing goal range to Low 110 mg/dL - High 140 mg/dL RECOMMENDATIONS FOR DISCHARGE: * resume pump. patient's HbA1C indicates poor control recommend follow-up with whomever is managing pump to make changes. * Please note that the plan above was derived based on current level of insulin resistance and hospital stress. These recommendations are appropriate for inpatient admission only. Plan of care upon discharge will need to be reassessed to avoid potential outpatient hypo/hyperglycemia. Thank you.
[2018-03-31] MEDS: PRAZOSIN HCL 1 MG CAP PO SCH (21:00)
[2018-03-31] MEDS: risperiDONE 1 MG TABLET PO SCH (21:00)
[2018-04-01] MEDS ORDERED: INSULIN ASPART 100 UNITS/ML VIAL SC SCH ×2 (08:00→12:00)
[2018-04-01] MEDS: NICOTINE 14 MG/24 HR PATCH TD SCH (08:05)
[2018-04-01] MEDS: BusPIRone 15 MG TAB PO SCH (08:05)
[2018-04-01] MEDS ORDERED: INSULIN GLARGINE 100 UNIT/ML VIAL SC ONE ×2 (09:30→09:45)
--- NOTE | 2018-04-01 10:07 | Discharge Summary ---
Date of Service April 01, 2018 History of Present Illness 37 yo CF who has a history of uncontrolled DM, h/o depression and opiate use d/o , who was admitted on a 302 involuntary commitment for paranoid delusions of people trying to kill her. Patient also had uncontrolled DM with blood glucose of 531 but was medically cleared in ER. Patient uncooperative after multiple attempts to interview and stated "leave me alone so I can rest, I'm not crazy". Per 302, patient has been paranoid and has called police multiple times in last few days about people out to kill her. She also ran into a neighbors house and locked herself in the bathroom due to the paranoia. She reported to police when they arrived her house that she was hearing voices of people who were going to kill her. In the ER, patients BG was 531 and it is reported she self removed her insulin pump, leading elevated BG levels putting patient at life threatening DKA. Physical Exam Psychiatric A+Ox3, euthymic affect Apperance: appropriately dressed and appropriately groomed Eye Contact: + fair eye contact Motor Behavior: no abnormal motor movements Speech: normal rate/rhythm/volume of speech Affect: euthymic affect and mood congruent with affect Thought Process: goal directed thought process Thought Content: reality based without delusions Suicidal Thoughts: denies suicidal thoughts Homicidal Thoughts: denies homicidal thoughts Hallucinations: no auditory hallucinations and no visual hallucinations Cognition: recent memory grossly intact and remote memory grossly intact Estimated Intelligence: average estimated intelligence Insight: + fair insight Judgement: + fair judgement Vital Signs (Past 24 Hours) Last Vital Signs Temp 36.8 C 04/01/18 06:57 Pulse 93 H 04/01/18 06:58 Resp 16 04/01/18 06:57 BP 110/74 04/01/18 06:58 Pulse Ox 98 03/27/18 00:23 Principal Diagnosis psychosis nos Psychiatric Data Advance Directives Advance Directives Information Provided: Yes Advance Directives: No Mental Health Advance Directive: No Advance Directives on File: No Living Will: No Power of Executive Creative Director: No Advance Directives Reason:: Declines as Mental Health Visit. 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[employer]) Stable Relationships: No Supportive Family: No Discharge Data Lab Results 03/26/18 03/26/18 03/26/18 16:10 17:02 17:02 WBC RBC Hgb Hct MCV MCH MCHC RDW Std Deviation RDW Coeff of Bruna Plt Count MPV Immature Gran % (Auto) Neut % (Auto) Lymph % (Auto) Bureau % (Auto) Eos % (Auto) Baso % (Auto) Immature Gran # (Auto) Neut # (Auto) Lymph # (Auto) Bureau # (Auto) Eos # (Auto) Baso # (Auto) PT INR APTT PTT Ratio VBG pH 7.44 H VBG pCO2 42 VBG pO2 26 VBG HCO3 28 VBG O2 Saturation < 60.0 VBG Base Excess 3.1 Barometric Pressure 734.9 Sodium Potassium Chloride Carbon Dioxide Anion Gap BUN Creatinine Est Cr Clr Drug Dosing Est GFR ( Amer) Est GFR (Non-Af Amer) BUN/Creatinine Ratio Glucose POC Glucose 492 H* Estimat Average Glucose Hemoglobin A1c Calcium Total Bilirubin AST ALT Alkaline Phosphatase Total Protein Albumin Globulin Albumin/Globulin Ratio Lipase Beta-Hydroxybutyric Acd TSH Specimen Hemolysis Urine Color Urine Appearance Urine pH Ur Specific [place] Urine Protein Urine Glucose (UA) Urine Ketones Urine Blood Urine Nitrite Urine Bilirubin Urine Urobilinogen Ur Leukocyte Esterase POC Ur Test Salicylates 2.8 Urine Opiates Screen Ur Methadone, Qual Acetaminophen < 2 L Urine Barbiturates Ur Phencyclidine (PCP) U Amphetamines Confirm U Amphetamin/Meth Scrn U Methamphetamin Confrm MDMA (Ecstasy) Screen U Benzodiazepines Scrn Ur Cocaine Metabolite U Marijuana (THC) Screen Ethyl Alcohol mg/dL 03/26/18 03/26/18 03/26/18 17:02 17:02 17:02 WBC 7.19 RBC 5.02 Hgb 14.8 Hct 42.5 MCV 84.7 MCH 29.5 MCHC 34.8 RDW Std Deviation 45.9 RDW Coeff of Bruna 14.9 H Plt Count 273 MPV 9.1 Immature Gran % (Auto) 0.1 Neut % (Auto) 65.4 Lymph % (Auto) 28.2 Bureau % (Auto) 5.3 Eos % (Auto) 0.6 Baso % (Auto) 0.4 Immature Gran # (Auto) 0.01 Neut # (Auto) 4.70 Lymph # (Auto) 2.03 Bureau # (Auto) 0.38 Eos # (Auto) 0.04 Baso # (Auto) 0.03 PT 10.5 INR 1.0 APTT 25.9 PTT Ratio 1.0 VBG pH VBG pCO2 VBG pO2 VBG HCO3 VBG O2 Saturation VBG Base Excess Barometric Pressure Sodium 132 L Potassium 4.1 Chloride 101 Carbon Dioxide 26 Anion Gap 5.0 BUN 9 Creatinine 0.95 Est Cr Clr Drug Dosing 64.7 Est GFR ( Amer) 89.3 Est GFR (Non-Af Amer) 77.1 BUN/Creatinine Ratio 10.0 Glucose 404 H* POC Glucose Estimat Average Glucose Hemoglobin A1c Calcium 9.9 Total Bilirubin 0.7 AST 18 ALT 36 Alkaline Phosphatase 129 H Total Protein 9.6 H Albumin 4.3 Globulin 5.3 H Albumin/Globulin Ratio 0.8 L Lipase 101 Beta-Hydroxybutyric Acd 1.48 TSH 1.370 Specimen Hemolysis Urine Color Urine Appearance Urine pH Ur Specific [place] Urine Protein Urine Glucose (UA) Urine Ketones Urine Blood Urine Nitrite Urine Bilirubin Urine Urobilinogen Ur Leukocyte Esterase POC Ur Test Salicylates Urine Opiates Screen Ur Methadone, Qual Acetaminophen Urine Barbiturates Ur Phencyclidine (PCP) U Amphetamines Confirm U Amphetamin/Meth Scrn U Methamphetamin Confrm MDMA (Ecstasy) Screen U Benzodiazepines Scrn Ur Cocaine Metabolite U Marijuana (THC) Screen Ethyl Alcohol mg/dL 03/26/18 03/26/18 03/26/18 17:02 17:02 17:06 WBC RBC Hgb Hct MCV MCH MCHC RDW Std Deviation RDW Coeff of Bruna Plt Count MPV Immature Gran % (Auto) Neut % (Auto) Lymph % (Auto) Bureau % (Auto) Eos % (Auto) Baso % (Auto) Immature Gran # (Auto) Neut # (Auto) Lymph # (Auto) Bureau # (Auto) Eos # (Auto) Baso # (Auto) PT INR APTT PTT Ratio VBG pH VBG pCO2 VBG pO2 VBG HCO3 VBG O2 Saturation VBG Base Excess Barometric Pressure Sodium Potassium Chloride Carbon Dioxide Anion Gap BUN Creatinine Est Cr Clr Drug Dosing Est GFR ( Amer) Est GFR (Non-Af Amer) BUN/Creatinine Ratio Glucose POC Glucose Estimat Average Glucose Hemoglobin A1c Calcium Total Bilirubin AST ALT Alkaline Phosphatase Total Protein Albumin Globulin Albumin/Globulin Ratio Lipase Beta-Hydroxybutyric Acd TSH Cancelled Specimen Hemolysis Urine Color Urine Appearance Urine pH Ur Specific [place] Urine Protein Urine Glucose (UA) Urine Ketones Urine Blood Urine Nitrite Urine Bilirubin Urine Urobilinogen Ur Leukocyte Esterase POC Ur Test Salicylates Urine Opiates Screen Neg Ur Methadone, Qual Neg Acetaminophen Urine Barbiturates Neg Ur Phencyclidine (PCP) Neg U Amphetamines Confirm U Amphetamin/Meth Scrn Pos H U Methamphetamin Confrm MDMA (Ecstasy) Screen Neg U Benzodiazepines Scrn Neg Ur Cocaine Metabolite Neg U Marijuana (THC) Screen Neg Ethyl Alcohol mg/dL < 3.0 03/26/18 03/26/18 03/26/18 17:06 17:06 17:52 WBC RBC Hgb Hct MCV MCH MCHC RDW Std Deviation RDW Coeff of Bruna Plt Count MPV Immature Gran % (Auto) Neut % (Auto) Lymph % (Auto) Bureau % (Auto) Eos % (Auto) Baso % (Auto) Immature Gran # (Auto) Neut # (Auto) Lymph # (Auto) Bureau # (Auto) Eos # (Auto) Baso # (Auto) PT INR APTT PTT Ratio VBG pH VBG pCO2 VBG pO2 VBG HCO3 VBG O2 Saturation VBG Base Excess Barometric Pressure Sodium Potassium Chloride Carbon Dioxide Anion Gap BUN Creatinine Est Cr Clr Drug Dosing Est GFR ( Amer) Est GFR (Non-Af Amer) BUN/Creatinine Ratio Glucose POC Glucose 346 H Estimat Average Glucose Hemoglobin A1c Calcium Total Bilirubin AST ALT Alkaline Phosphatase Total Protein Albumin Globulin Albumin/Globulin Ratio Lipase Beta-Hydroxybutyric Acd TSH Specimen Hemolysis Urine Color Yellow Urine Appearance Clear Urine pH 7.0 Ur Specific [place] 1.039 H Urine Protein Negative Urine Glucose (UA) 3+ H Urine Ketones Negative Urine Blood Negative Urine Nitrite Negative Urine Bilirubin Negative Urine Urobilinogen Negative Ur Leukocyte Esterase Negative POC Ur Test Salicylates Urine Opiates Screen Ur Methadone, Qual Acetaminophen Urine Barbiturates Ur Phencyclidine (PCP) U Amphetamines Confirm 2780 A U Amphetamin/Meth Scrn U Methamphetamin Confrm NEGATIVE MDMA (Ecstasy) Screen U Benzodiazepines Scrn Ur Cocaine Metabolite U Marijuana (THC) Screen Ethyl Alcohol mg/dL 03/26/18 03/26/18 03/26/18 19:41 23:56 Unknown WBC RBC Hgb Hct MCV MCH MCHC RDW Std Deviation RDW Coeff of Bruna Plt Count MPV Immature Gran % (Auto) Neut % (Auto) Lymph % (Auto) Bureau % (Auto) Eos % (Auto) Baso % (Auto) Immature Gran # (Auto) Neut # (Auto) Lymph # (Auto) Bureau # (Auto) Eos # (Auto) Baso # (Auto) PT INR APTT PTT Ratio VBG pH VBG pCO2 VBG pO2 VBG HCO3 VBG O2 Saturation VBG Base Excess Barometric Pressure Sodium Potassium Chloride Carbon Dioxide Anion Gap BUN Creatinine Est Cr Clr Drug Dosing Est GFR ( Amer) Est GFR (Non-Af Amer) BUN/Creatinine Ratio Glucose POC Glucose 152 H 291 H Estimat Average Glucose Hemoglobin A1c Calcium Total Bilirubin AST ALT Alkaline Phosphatase Total Protein Albumin Globulin Albumin/Globulin Ratio Lipase Beta-Hydroxybutyric Acd TSH Specimen Hemolysis Urine Color Urine Appearance Urine pH Ur Specific [place] Urine Protein Urine Glucose (UA) Urine Ketones Urine Blood Urine Nitrite Urine Bilirubin Urine Urobilinogen Ur Leukocyte Esterase POC Ur Test NEG Salicylates Urine Opiates Screen Ur Methadone, Qual Acetaminophen Urine Barbiturates Ur Phencyclidine (PCP) U Amphetamines Confirm U Amphetamin/Meth Scrn U Methamphetamin Confrm MDMA (Ecstasy) Screen U Benzodiazepines Scrn Ur Cocaine Metabolite U Marijuana (THC) Screen Ethyl Alcohol mg/dL 03/27/18 03/27/18 03/27/18 08:25 11:18 13:14 WBC RBC Hgb Hct MCV MCH MCHC RDW Std Deviation RDW Coeff of Bruna Plt Count MPV Immature Gran % (Auto) Neut % (Auto) Lymph % (Auto) Bureau % (Auto) Eos % (Auto) Baso % (Auto) Immature Gran # (Auto) Neut # (Auto) Lymph # (Auto) Bureau # (Auto) Eos # (Auto) Baso # (Auto) PT INR APTT PTT Ratio VBG pH VBG pCO2 VBG pO2 VBG HCO3 VBG O2 Saturation VBG Base Excess Barometric Pressure Sodium 131 L Potassium 4.0 Chloride 99 Carbon Dioxide 22 Anion Gap 10.0 BUN 21 H D Creatinine 1.26 H D Est Cr Clr Drug Dosing 48.8 Est GFR ( Amer) 63.5 Est GFR (Non-Af Amer) 54.8 BUN/Creatinine Ratio 16.8 Glucose 318 H POC Glucose 531 H* 435 H* Estimat Average Glucose Hemoglobin A1c Calcium 9.4 Total Bilirubin AST ALT Alkaline Phosphatase Total Protein Albumin Globulin Albumin/Globulin Ratio Lipase Beta-Hydroxybutyric Acd TSH Specimen Hemolysis Urine Color Urine Appearance Urine pH Ur Specific [place] Urine Protein Urine Glucose (UA) Urine Ketones Urine Blood Urine Nitrite Urine Bilirubin Urine Urobilinogen Ur Leukocyte Esterase POC Ur Test Salicylates Urine Opiates Screen Ur Methadone, Qual Acetaminophen Urine Barbiturates Ur Phencyclidine (PCP) U Amphetamines Confirm U Amphetamin/Meth Scrn U Methamphetamin Confrm MDMA (Ecstasy) Screen U Benzodiazepines Scrn Ur Cocaine Metabolite U Marijuana (THC) Screen Ethyl Alcohol mg/dL 03/27/18 03/27/18 03/27/18 13:15 15:51 17:56 WBC RBC Hgb Hct MCV MCH MCHC RDW Std Deviation RDW Coeff of Bruna Plt Count MPV Immature Gran % (Auto) Neut % (Auto) Lymph % (Auto) Bureau % (Auto) Eos % (Auto) Baso % (Auto) Immature Gran # (Auto) Neut # (Auto) Lymph # (Auto) Bureau # (Auto) Eos # (Auto) Baso # (Auto) PT INR APTT PTT Ratio VBG pH VBG pCO2 VBG pO2 VBG HCO3 VBG O2 Saturation VBG Base Excess Barometric Pressure Sodium Potassium Chloride Carbon Dioxide Anion Gap BUN Creatinine Est Cr Clr Drug Dosing Est GFR ( Amer) Est GFR (Non-Af Amer) BUN/Creatinine Ratio Glucose POC Glucose 325 H 337 H 226 H Estimat Average Glucose Hemoglobin A1c Calcium Total Bilirubin AST ALT Alkaline Phosphatase Total Protein Albumin Globulin Albumin/Globulin Ratio Lipase Beta-Hydroxybutyric Acd TSH Specimen Hemolysis Urine Color Urine Appearance Urine pH Ur Specific [place] Urine Protein Urine Glucose (UA) Urine Ketones Urine Blood Urine Nitrite Urine Bilirubin Urine Urobilinogen Ur Leukocyte Esterase POC Ur Test Salicylates Urine Opiates Screen Ur Methadone, Qual Acetaminophen Urine Barbiturates Ur Phencyclidine (PCP) U Amphetamines Confirm U Amphetamin/Meth Scrn U Methamphetamin Confrm MDMA (Ecstasy) Screen U Benzodiazepines Scrn Ur Cocaine Metabolite U Marijuana (THC) Screen Ethyl Alcohol mg/dL 03/27/18 03/28/18 03/28/18 20:34 00:05 04:08 WBC RBC Hgb Hct MCV MCH MCHC RDW Std Deviation RDW Coeff of Bruna Plt Count MPV Immature Gran % (Auto) Neut % (Auto) Lymph % (Auto) Bureau % (Auto) Eos % (Auto) Baso % (Auto) Immature Gran # (Auto) Neut # (Auto) Lymph # (Auto) Bureau # (Auto) Eos # (Auto) Baso # (Auto) PT INR APTT PTT Ratio VBG pH VBG pCO2 VBG pO2 VBG HCO3 VBG O2 Saturation VBG Base Excess Barometric Pressure Sodium Potassium Chloride Carbon Dioxide Anion Gap BUN Creatinine Est Cr Clr Drug Dosing Est GFR ( Amer) Est GFR (Non-Af Amer) BUN/Creatinine Ratio Glucose POC Glucose 161 H 367 H* 293 H Estimat Average Glucose Hemoglobin A1c Calcium Total Bilirubin AST ALT Alkaline Phosphatase Total Protein Albumin Globulin Albumin/Globulin Ratio Lipase Beta-Hydroxybutyric Acd TSH Specimen Hemolysis Urine Color Urine Appearance Urine pH Ur Specific [place] Urine Protein Urine Glucose (UA) Urine Ketones Urine Blood Urine Nitrite Urine Bilirubin Urine Urobilinogen Ur Leukocyte Esterase POC Ur Test Salicylates Urine Opiates Screen Ur Methadone, Qual Acetaminophen Urine Barbiturates Ur Phencyclidine (PCP) U Amphetamines Confirm U Amphetamin/Meth Scrn U Methamphetamin Confrm MDMA (Ecstasy) Screen U Benzodiazepines Scrn Ur Cocaine Metabolite U Marijuana (THC) Screen Ethyl Alcohol mg/dL 03/28/18 03/28/18 03/28/18 08:32 08:51 12:19 WBC RBC Hgb Hct MCV MCH MCHC RDW Std Deviation RDW Coeff of Bruna Plt Count MPV Immature Gran % (Auto) Neut % (Auto) Lymph % (Auto) Bureau % (Auto) Eos % (Auto) Baso % (Auto) Immature Gran # (Auto) Neut # (Auto) Lymph # (Auto) Bureau # (Auto) Eos # (Auto) Baso # (Auto) PT INR APTT PTT Ratio VBG pH VBG pCO2 VBG pO2 VBG HCO3 VBG O2 Saturation VBG Base Excess Barometric Pressure Sodium Potassium Chloride Carbon Dioxide Anion Gap BUN Creatinine Est Cr Clr Drug Dosing Est GFR ( Amer) Est GFR (Non-Af Amer) BUN/Creatinine Ratio Glucose POC Glucose 242 H 330 H Estimat Average Glucose 232 Hemoglobin A1c 9.7 H Calcium Total Bilirubin AST ALT Alkaline Phosphatase Total Protein Albumin Globulin Albumin/Globulin Ratio Lipase Beta-Hydroxybutyric Acd TSH Specimen Hemolysis Urine Color Urine Appearance Urine pH Ur Specific [place] Urine Protein Urine Glucose (UA) Urine Ketones Urine Blood Urine Nitrite Urine Bilirubin Urine Urobilinogen Ur Leukocyte Esterase POC Ur Test Salicylates Urine Opiates Screen Ur Methadone, Qual Acetaminophen Urine Barbiturates Ur Phencyclidine (PCP) U Amphetamines Confirm U Amphetamin/Meth Scrn U Methamphetamin Confrm MDMA (Ecstasy) Screen U Benzodiazepines Scrn Ur Cocaine Metabolite U Marijuana (THC) Screen Ethyl Alcohol mg/dL 03/28/18 03/28/18 03/29/18 17:15 20:45 02:02 WBC RBC Hgb Hct MCV MCH MCHC RDW Std Deviation RDW Coeff of Bruna Plt Count MPV Immature Gran % (Auto) Neut % (Auto) Lymph % (Auto) Bureau % (Auto) Eos % (Auto) Baso % (Auto) Immature Gran # (Auto) Neut # (Auto) Lymph # (Auto) Bureau # (Auto) Eos # (Auto) Baso # (Auto) PT INR APTT PTT Ratio VBG pH VBG pCO2 VBG pO2 VBG HCO3 VBG O2 Saturation VBG Base Excess Barometric Pressure Sodium Potassium Chloride Carbon Dioxide Anion Gap BUN Creatinine Est Cr Clr Drug Dosing Est GFR ( Amer) Est GFR (Non-Af Amer) BUN/Creatinine Ratio Glucose POC Glucose 325 H 175 H 239 H Estimat Average Glucose Hemoglobin A1c Calcium Total Bilirubin AST ALT Alkaline Phosphatase Total Protein Albumin Globulin Albumin/Globulin Ratio Lipase Beta-Hydroxybutyric Acd TSH Specimen Hemolysis Urine Color Urine Appearance Urine pH Ur Specific [place] Urine Protein Urine Glucose (UA) Urine Ketones Urine Blood Urine Nitrite Urine Bilirubin Urine Urobilinogen Ur Leukocyte Esterase POC Ur Test Salicylates Urine Opiates Screen Ur Methadone, Qual Acetaminophen Urine Barbiturates Ur Phencyclidine (PCP) U Amphetamines Confirm U Amphetamin/Meth Scrn U Methamphetamin Confrm MDMA (Ecstasy) Screen U Benzodiazepines Scrn Ur Cocaine Metabolite U Marijuana (THC) Screen Ethyl Alcohol mg/dL 03/29/18 03/29/18 03/29/18 08:30 12:03 17:12 WBC RBC Hgb Hct MCV MCH MCHC RDW Std Deviation RDW Coeff of Bruna Plt Count MPV Immature Gran % (Auto) Neut % (Auto) Lymph % (Auto) Bureau % (Auto) Eos % (Auto) Baso % (Auto) Immature Gran # (Auto) Neut # (Auto) Lymph # (Auto) Bureau # (Auto) Eos # (Auto) Baso # (Auto) PT INR APTT PTT Ratio VBG pH VBG pCO2 VBG pO2 VBG HCO3 VBG O2 Saturation VBG Base Excess Barometric Pressure Sodium Potassium Chloride Carbon Dioxide Anion Gap BUN Creatinine Est Cr Clr Drug Dosing Est GFR ( Amer) Est GFR (Non-Af Amer) BUN/Creatinine Ratio Glucose POC Glucose 378 H* 396 H* 385 H* Estimat Average Glucose Hemoglobin A1c Calcium Total Bilirubin AST ALT Alkaline Phosphatase Total Protein Albumin Globulin Albumin/Globulin Ratio Lipase Beta-Hydroxybutyric Acd TSH Specimen Hemolysis Urine Color Urine Appearance Urine pH Ur Specific [place] Urine Protein Urine Glucose (UA) Urine Ketones Urine Blood Urine Nitrite Urine Bilirubin Urine Urobilinogen Ur Leukocyte Esterase POC Ur Test Salicylates Urine Opiates Screen Ur Methadone, Qual Acetaminophen Urine Barbiturates Ur Phencyclidine (PCP) U Amphetamines Confirm U Amphetamin/Meth Scrn U Methamphetamin Confrm MDMA (Ecstasy) Screen U Benzodiazepines Scrn Ur Cocaine Metabolite U Marijuana (THC) Screen Ethyl Alcohol mg/dL 03/29/18 03/29/18 03/29/18 17:14 19:02 20:23 WBC RBC Hgb Hct MCV MCH MCHC RDW Std Deviation RDW Coeff of Bruna Plt Count MPV Immature Gran % (Auto) Neut % (Auto) Lymph % (Auto) Bureau % (Auto) Eos % (Auto) Baso % (Auto) Immature Gran # (Auto) Neut # (Auto) Lymph # (Auto) Bureau # (Auto) Eos # (Auto) Baso # (Auto) PT INR APTT PTT Ratio VBG pH VBG pCO2 VBG pO2 VBG HCO3 VBG O2 Saturation VBG Base Excess Barometric Pressure Sodium Potassium Chloride Carbon Dioxide Anion Gap BUN Creatinine Est Cr Clr Drug Dosing Est GFR ( Amer) Est GFR (Non-Af Amer) BUN/Creatinine Ratio Glucose POC Glucose 402 H* 366 H* 158 H Estimat Average Glucose Hemoglobin A1c Calcium Total Bilirubin AST ALT Alkaline Phosphatase Total Protein Albumin Globulin Albumin/Globulin Ratio Lipase Beta-Hydroxybutyric Acd TSH Specimen Hemolysis Urine Color Urine Appearance Urine pH Ur Specific [place] Urine Protein Urine Glucose (UA) Urine Ketones Urine Blood Urine Nitrite Urine Bilirubin Urine Urobilinogen Ur Leukocyte Esterase POC Ur Test Salicylates Urine Opiates Screen Ur Methadone, Qual Acetaminophen Urine Barbiturates Ur Phencyclidine (PCP) U Amphetamines Confirm U Amphetamin/Meth Scrn U Methamphetamin Confrm MDMA (Ecstasy) Screen U Benzodiazepines Scrn Ur Cocaine Metabolite U Marijuana (THC) Screen Ethyl Alcohol mg/dL 03/29/18 03/29/18 03/30/18 21:36 23:59 08:43 WBC RBC Hgb Hct MCV MCH MCHC RDW Std Deviation RDW Coeff of Bruna Plt Count MPV Immature Gran % (Auto) Neut % (Auto) Lymph % (Auto) Bureau % (Auto) Eos % (Auto) Baso % (Auto) Immature Gran # (Auto) Neut # (Auto) Lymph # (Auto) Bureau # (Auto) Eos # (Auto) Baso # (Auto) PT INR APTT PTT Ratio VBG pH VBG pCO2 VBG pO2 VBG HCO3 VBG O2 Saturation VBG Base Excess Barometric Pressure Sodium Potassium Chloride Carbon Dioxide Anion Gap BUN Creatinine Est Cr Clr Drug Dosing Est GFR ( Amer) Est GFR (Non-Af Amer) BUN/Creatinine Ratio Glucose POC Glucose 142 H 269 H 269 H Estimat Average Glucose Hemoglobin A1c Calcium Total Bilirubin AST ALT Alkaline Phosphatase Total Protein Albumin Globulin Albumin/Globulin Ratio Lipase Beta-Hydroxybutyric Acd TSH Specimen Hemolysis Urine Color Urine Appearance Urine pH Ur Specific [place] Urine Protein Urine Glucose (UA) Urine Ketones Urine Blood Urine Nitrite Urine Bilirubin Urine Urobilinogen Ur Leukocyte Esterase POC Ur Test Salicylates Urine Opiates Screen Ur Methadone, Qual Acetaminophen Urine Barbiturates Ur Phencyclidine (PCP) U Amphetamines Confirm U Amphetamin/Meth Scrn U Methamphetamin Confrm MDMA (Ecstasy) Screen U Benzodiazepines Scrn Ur Cocaine Metabolite U Marijuana (THC) Screen Ethyl Alcohol mg/dL 03/30/18 03/30/18 03/30/18 12:25 12:27 15:36 WBC RBC Hgb Hct MCV MCH MCHC RDW Std Deviation RDW Coeff of Bruna Plt Count MPV Immature Gran % (Auto) Neut % (Auto) Lymph % (Auto) Bureau % (Auto) Eos % (Auto) Baso % (Auto) Immature Gran # (Auto) Neut # (Auto) Lymph # (Auto) Bureau # (Auto) Eos # (Auto) Baso # (Auto) PT INR APTT PTT Ratio VBG pH VBG pCO2 VBG pO2 VBG HCO3 VBG O2 Saturation VBG Base Excess Barometric Pressure Sodium Potassium Chloride Carbon Dioxide Anion Gap BUN Creatinine Est Cr Clr Drug Dosing Est GFR ( Amer) Est GFR (Non-Af Amer) BUN/Creatinine Ratio Glucose POC Glucose 384 H* 444 H* 198 H Estimat Average Glucose Hemoglobin A1c Calcium Total Bilirubin AST ALT Alkaline Phosphatase Total Protein Albumin Globulin Albumin/Globulin Ratio Lipase Beta-Hydroxybutyric Acd TSH Specimen Hemolysis Urine Color Urine Appearance Urine pH Ur Specific [place] Urine Protein Urine Glucose (UA) Urine Ketones Urine Blood Urine Nitrite Urine Bilirubin Urine Urobilinogen Ur Leukocyte Esterase POC Ur Test Salicylates Urine Opiates Screen Ur Methadone, Qual Acetaminophen Urine Barbiturates Ur Phencyclidine (PCP) U Amphetamines Confirm U Amphetamin/Meth Scrn U Methamphetamin Confrm MDMA (Ecstasy) Screen U Benzodiazepines Scrn Ur Cocaine Metabolite U Marijuana (THC) Screen Ethyl Alcohol mg/dL 03/30/18 03/30/18 03/31/18 17:16 20:23 08:08 WBC RBC Hgb Hct MCV MCH MCHC RDW Std Deviation RDW Coeff of Bruna Plt Count MPV Immature Gran % (Auto) Neut % (Auto) Lymph % (Auto) Bureau % (Auto) Eos % (Auto) Baso % (Auto) Immature Gran # (Auto) Neut # (Auto) Lymph # (Auto) Bureau # (Auto) Eos # (Auto) Baso # (Auto) PT INR APTT PTT Ratio VBG pH VBG pCO2 VBG pO2 VBG HCO3 VBG O2 Saturation VBG Base Excess Barometric Pressure Sodium Potassium Chloride Carbon Dioxide Anion Gap BUN Creatinine Est Cr Clr Drug Dosing Est GFR ( Amer) Est GFR (Non-Af Amer) BUN/Creatinine Ratio Glucose POC Glucose 217 H 136 H 271 H Estimat Average Glucose Hemoglobin A1c Calcium Total Bilirubin AST ALT Alkaline Phosphatase Total Protein Albumin Globulin Albumin/Globulin Ratio Lipase Beta-Hydroxybutyric Acd TSH Specimen Hemolysis Urine Color Urine Appearance Urine pH Ur Specific [place] Urine Protein Urine Glucose (UA) Urine Ketones Urine Blood Urine Nitrite Urine Bilirubin Urine Urobilinogen Ur Leukocyte Esterase POC Ur Test Salicylates Urine Opiates Screen Ur Methadone, Qual Acetaminophen Urine Barbiturates Ur Phencyclidine (PCP) U Amphetamines Confirm U Amphetamin/Meth Scrn U Methamphetamin Confrm MDMA (Ecstasy) Screen U Benzodiazepines Scrn Ur Cocaine Metabolite U Marijuana (THC) Screen Ethyl Alcohol mg/dL 03/31/18 03/31/18 03/31/18 12:18 12:20 12:22 WBC RBC Hgb Hct MCV MCH MCHC RDW Std Deviation RDW Coeff of Bruna Plt Count MPV Immature Gran % (Auto) Neut % (Auto) Lymph % (Auto) Bureau % (Auto) Eos % (Auto) Baso % (Auto) Immature Gran # (Auto) Neut # (Auto) Lymph # (Auto) Bureau # (Auto) Eos # (Auto) Baso # (Auto) PT INR APTT PTT Ratio VBG pH VBG pCO2 VBG pO2 VBG HCO3 VBG O2 Saturation VBG Base Excess Barometric Pressure Sodium Potassium Chloride Carbon Dioxide Anion Gap BUN Creatinine Est Cr Clr Drug Dosing Est GFR ( Amer) Est GFR (Non-Af Amer) BUN/Creatinine Ratio Glucose POC Glucose 380 H* 291 H 310 H Estimat Average Glucose Hemoglobin A1c Calcium Total Bilirubin AST ALT Alkaline Phosphatase Total Protein Albumin Globulin Albumin/Globulin Ratio Lipase Beta-Hydroxybutyric Acd TSH Specimen Hemolysis Urine Color Urine Appearance Urine pH Ur Specific [place] Urine Protein Urine Glucose (UA) Urine Ketones Urine Blood Urine Nitrite Urine Bilirubin Urine Urobilinogen Ur Leukocyte Esterase POC Ur Test Salicylates Urine Opiates Screen Ur Methadone, Qual Acetaminophen Urine Barbiturates Ur Phencyclidine (PCP) U Amphetamines Confirm U Amphetamin/Meth Scrn U Methamphetamin Confrm MDMA (Ecstasy) Screen U Benzodiazepines Scrn Ur Cocaine Metabolite U Marijuana (THC) Screen Ethyl Alcohol mg/dL 03/31/18 03/31/18 04/01/18 17:13 20:23 08:02 WBC RBC Hgb Hct MCV MCH MCHC RDW Std Deviation RDW Coeff of Bruna Plt Count MPV Immature Gran % (Auto) Neut % (Auto) Lymph % (Auto) Bureau % (Auto) Eos % (Auto) Baso % (Auto) Immature Gran # (Auto) Neut # (Auto) Lymph # (Auto) Bureau # (Auto) Eos # (Auto) Baso # (Auto) PT INR APTT PTT Ratio VBG pH VBG pCO2 VBG pO2 VBG HCO3 VBG O2 Saturation VBG Base Excess Barometric Pressure Sodium Potassium Chloride Carbon Dioxide Anion Gap BUN Creatinine Est Cr Clr Drug Dosing Est GFR ( Amer) Est GFR (Non-Af Amer) BUN/Creatinine Ratio Glucose POC Glucose 229 H 164 H 264 H Estimat Average Glucose Hemoglobin A1c Calcium Total Bilirubin AST ALT Alkaline Phosphatase Total Protein Albumin Globulin Albumin/Globulin Ratio Lipase Beta-Hydroxybutyric Acd TSH Specimen Hemolysis Urine Color Urine Appearance Urine pH Ur Specific [place] Urine Protein Urine Glucose (UA) Urine Ketones Urine Blood Urine Nitrite Urine Bilirubin Urine Urobilinogen Ur Leukocyte Esterase POC Ur Test Salicylates Urine Opiates Screen Ur Methadone, Qual Acetaminophen Urine Barbiturates Ur Phencyclidine (PCP) U Amphetamines Confirm U Amphetamin/Meth Scrn U Methamphetamin Confrm MDMA (Ecstasy) Screen U Benzodiazepines Scrn Ur Cocaine Metabolite U Marijuana (THC) Screen Ethyl Alcohol mg/dL Hospital Course (1) Unspecified psychosis: 03/27/18: Increase Abilify to 5mg bid - Continue outpt buspar and prazosin 03/28/18: Patient seemed to be with mild improvement however continues to be irritable, suspicious thoughts and her blood sugars continue to be in high. 303 commitment up to 20 days obtained today and will continue to treat for stabilization. BG being managed by pharmacy monitoring and insulin recs. 03/29/18: Seems to be with some improvement today and did not appreciate any paranoia. Will change Abilify to risperdal 1mg qhs. Patient resolving paranoia and change from original presentation may be due to her elevated blood glucose and poorly controlled diabetes. High levels of blood glucose is with a risk of DKA and altered mental status and may the cause of the patients original presentation. However, given patients severity of paranoia will continue antipsychotic therapy and for symptoms to be assessed on follow up outpt. Will continue have pharmacy monitoring and insulin treatment to stabilize patient blood glucose levels 03/30/18: Patient seems to with continued improvement and seems to be without paranoia or delusions. Is cooperative and participating in groups. Will need to get insulin pump and proper dosing to be able to keep blood glucose in control. Recommended patient to continue Risperdal and follow up with outpt provider to discuss further treatment course. Denies SI/HI/aVH. 03/31: Patient signed a release yesterday for [email or web address] [facility]; request records and coordinate with outpatient psychiatric PA and therapist. -Continue risperidone; fasting labs for monitoring on an atypical antipsychotic reviewed: Hemoglobin A1c from 03/28/2018 elevated at 9.7 (estimated average glucose 232), and fasting lipid profile from 07/30/2017 was within normal limits. -Called [facility] to coordinate care with [facility], left message requesting return phone call. Also sees a therapist there, and will be referred for case management through the [facility] when they reopen tomorrow. 04/01: Patient seems to be with fair mood today and denies SI/HI/aVH. There was no major psychosis elicited and patient has complied with treatment. He blood glucoses have stabilized and she will follow up with PCP. Mental health follow up has been scheduled and treatment discussed with her provider. There are no acute safety concerns and will discharge patient home today. (2) Diabetes: 03/31 -diabetes is poorly controlled and blood sugar levels remain elevated ; continue insulin, glucose checks, and appreciate assistance from the diabetic pharmacist. -Consult educator senior clinical. -Follow-up scheduled with PCP, Dr. Aylin Hudson, on 04/08/2018. 04/01: Blood glucose better controlled. Patient has refills for her home insulin and insulin pump medications that was verified by her pharmacy. Patient is to continue these medications and follow up with her PCP as above. (3) Heroin abuse: Per outpatient records, patient abusing heroin and cocaine within the past 2 months. Recommend avoiding controlled substances given the risk of abuse /misuse/negative outcomes. -Recommend substance abuse treatment, which the patient is refusing. (4) Cocaine abuse: See above. Post Discharge Appointments Primary Care Physician Name Of Family Doctor: [facility] Date of Appointment with PCP: 04/08/18 Time of Appointment with PCP: 1:20pm Provider Appointment Comment: [address] [place] [address] Psychiatrist Name of Psychiatrist: [facility] Ramirez Psychiatrist's Date of Appointment with Psychiatrist: 04/03/18 Time of Appointment with Psychiatrist: 1:40pm Psychiatric Appointment Comment: [id number] [place] [address] Therapist Name of Therapist: Marko Aviles Therapist's Date of Therapist Appointment: 04/03/18 Time of Therapist Appointment: 11am Therapy Appointment Comment: [address] [place] [place] [address] [employer] [employer] Name of Grinder Chipper: [facility] Phone Number for Grinder [employer]: [phone] Date of Appointment with Grinder Chipper: 04/11/18 Case Management Appointment Comment: [id number] [place] [address] Contact Information Discharge Discharge Address: [address] [place] [id number] Discharge Plan Discharge Items Patient Disposition: Home - Self-Care Reason For Visit: PSYCHOSIS NOS Discharge Diagnosis: psychosis NOS Discharge Goals: Improve function and Therapeutic intervention Activity: Resume your previous activity Non-emergency contact: Primary Care Provider, Psychiatrist and Therapist Call non-emergency contact if: you have any medication questions and your symptoms worsen Diet: Carb Count or DM1 Addtl Provider Instructions: -Please attend scheduled follow up appointments -Please continue to take medications -Please return to pharmacy for pick and shovel man of insulin pump prescription refills Prescriptions: New risperidone 1 mg Tablet 1 mg PO HS 30 Days Qty: 30 RF: 0 buspirone 15 mg Tablet 30 mg PO BID 30 Days Qty: 120 RF: 0 Continue prazosin 1 mg capsule 1 mg PO HS 30 Days Qty: 30 RF: 0 insulin aspart U-100 100 unit/mL solution RF: 0 Discontinued insulin aspart U-100 [Novolog U-100 Insulin aspart] 100 unit/mL solution 0 - 50 unit Continuous Subcutaneous Infusion CONTINOUS RF: 0 buspirone 30 mg tablet 30 mg PO QAM RF: 0 insulin glargine [Lantus U-100 Insulin] 100 unit/mL Solution 18 unit SUBCUT UD RF: 0 dextroamphetamine-amphetamine [Adderall XR] 30 mg capsule,extended release 24hr 30 mg PO QAM RF: 0 insulin lispro [Humalog U-100 Insulin] 100 unit/mL Cartridge 1 sliding scale dose SUBCUT UD RF: 0 Visit Report Forms: [facility] Stand-Alone Forms: [facility] Discharge Orders: Discharge Order (Routine); Ordered 04/01/18 Ordered By: Rodger Lopez Admission Data Admit Date/Time: 03/26/18 21:38 Attending Provider: Rodger Lopez Admit Provider: Ethan Marquez I Primary Care Provider: PCP,NO Service: Psychiatry Other Interventions: PSY Interdisciplinary Discharge Planning Last Done: 04/01/18 09:00 Pending Studies at Discharge: No
[2018-04-01] MEDS: LORazepam 0.5 MG TAB PO PRN (12:08)
== END 2018-04-01 12:25 | disposition home or self-care (01) | DRG 885 ==
LOC: ED 16:02 → 3S 21:38 → SUATTDRO 21:38 → 3S 03-27

== ENCOUNTER 2020-06-14 07:03 | Inpatient (IN) ==
[2020-06-14] MEDS ORDERED: LORazepam 1 MG TAB SL STA (07:33)
--- NOTE | 2020-06-14 07:43 | Emergency Department Note ---
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 Aspart 100 Units/Ml 3 Ml Pen) 0 units SC ACHS JOAN Stop: 07/14/20 09:29 Last Admin: 06/14/20 10:04 Dose: Not Given Documented by: [id number] Cosigned by: [id number] Nicotine Polacrilex (Nicotine Polacrilex 2 Mg Gum) 1 piece MT PRN PRN PRN Reason: nicotine withdrawal Stop: 07/14/20 08:05 Last Admin: 06/14/20 08:28 Dose: 1 piece Documented by: [id number] Discontinued Medications Lactated Ringer's (Lr) 1,000 mls @ 999 mls/hr IV .Q1H1M ONE Stop: 06/14/20 09:42 Last Infusion: 06/14/20 11:06 Dose: 0 mls/hr Documented by: [id number] Admin: 06/14/20 09:23 Dose: 999 mls/hr Documented by: [id number] Lactated Ringer's (Lr) 1,000 mls @ 999 mls/hr IV .Q1H1M ONE Stop: 06/14/20 09:48 Last Infusion: 06/14/20 10:03 Dose: 0 mls/hr Documented by: [id number] Admin: 06/14/20 09:02 Dose: 999 mls/hr Documented by: [id number] Parenteral Electrolytes (Normosol-R) 1,000 mls @ 250 mls/hr IV .Q4H JOAN; Protocol Stop: 07/14/20 10:02 Last Admin: 06/14/20 11:07 Dose: Not Given Documented by: [id number] Potassium Chloride 40 meq/ (Sodium Chloride) 1,020 mls @ 250 mls/hr IV .Q4H5M [facility] Stop: 06/14/20 12:00 Last Admin: 06/14/20 11:14 Dose: 250 mls/hr Documented by: [id number] Insulin Human Regular (Novolin-R Bolus From Bag) 4.9 units IV ONE ONE Stop: 06/14/20 09:31 Last Admin: 06/14/20 09:41 Dose: 4.9 units Documented by: [id number] Cosigned by: [id number] Lorazepam (Lorazepam 1 Mg Tab) 2 mg SL NOW STA Stop: 06/14/20 07:34 Last Admin: 06/14/20 08:15 Dose: 2 mg Documented by: [id number] Miscellaneous (Dka Goal Range 150-250 Mg/Dl) 1 ea N/A ONE ONE Stop: 06/14/20 08:49 Last Admin: 06/14/20 10:02 Dose: Not Given Documented by: [id number] Miscellaneous (Pending 1/2nss+20meq Kcl Ivf) 1 ea N/A Q2H [facility] Stop: 07/14/20 10:02 Last Admin: 06/14/20 11:07 Dose: Not Given Documented by: [id number] Discharge Plan Visit Data Chief Complaint: Mental Health Evaluation Stated Complaint: [facility] ED Provider: Yahir Hutchins Discharge Problem: DKA (diabetic ketoacidoses), Unspecified psychosis Forms Stand Alone Forms: My M.A. Transportation Services, Suicide Prevention Resources Prescriptions Prescriptions: No Action Medical Marijuana See Rx Instructions .ROUTE .COMPLEX PRN (Reason: PTSD) RF: 0 insulin aspart U-100 [Novolog U-100 Insulin aspart] 100 unit/mL solution 1 unit subcut BIDWMEAL RF: 0 Lantus U-100 Insulin 100 unit/mL solution 22 unit SQ QPM RF: 0 Glucagon Emergency Kit (human) 1 mg recon soln 1 mg SQ ONCE PRN (Reason: Hypoglycemia) RF: 0 oxycodone 15 mg tablet 5 mg PO Q8H PRN (Reason: Pain) RF: 0 nicotine 21 mg/24 hr patch 24 hour 1 patch transdermal DAILY RF: 0 Discharge Problem: DKA (diabetic ketoacidoses) Qualifiers: Diabetes mellitus type: type 1 Diabetes mellitus complication detail: without coma Qualified Code(s): E10.10 - Type 1 diabetes mellitus with ketoacidosis without coma Unspecified psychosis Qualifiers: Psychosis type: unspecified psychosis type Qualified Code(s): F29 - Unspecified psychosis not due to a substance or known physiological condition
[2020-06-14 08:11] LABS: Basophils # (auto) 0.01 K/uL (0-0.2); Basophils % (auto) 0.1 %; Hematocrit (blood only) 39.2 % (37-47); Hemoglobin 13.6 g/dL (12.0-16.0); Immature Granulocytes # (auto) 0.03 K/uL (0.00-0.02); Immature Granulocytes % (auto) 0.3 %; Lymphocytes # (auto) 1.31 K/uL (1.2-3.4); Lymphocytes % (auto) 11.6 %; Mean Corpuscular Hemoglobin 30.2 pg (25-34); Mean Corpuscular Hgb Conc 34.7 g/dL (32-36); Mean Corpuscular Volume 87.1 fL (80-100); Mean Platelet Volume 9.1 fL (7.4-10.4); Monocytes # (auto) 0.39 K/uL (0.11-0.59); Monocytes % (auto) 3.4 %; Neutrophils % (auto) 84.6 %; Platelet Count 292 K/uL (130-400); RDW Standard Deviation 44.7 fL (36.4-46.3); White Blood Count 11.34 K/uL (4.8-10.8)
[2020-06-14] MEDS: NICOTINE POLACRILEX 2 MG GUM MT PRN (08:28)
[2020-06-14 08:31] LABS: Pregnancy Test, Serum Negative (Negative)
[2020-06-14 08:32] LABS: Albumin Level 4.3 gm/dl (3.4-5.0); BUN Creatinine Ratio 26.7 (10-20); Calcium 8.9 mg/dl (8.5-10.1); Creatinine Clr Calc Pharmacy 62.7 ml/min; Est GFR (African American) 88.1; Potassium 3.9 mmol/L (3.5-5.1)
[2020-06-14] MEDS ORDERED: LACTATED RINGER'S 1,000 ML IV ONE ×2 (08:42→08:48)
[2020-06-14 08:43] LABS: Acetaminophen < 2 ug/ml (10-30); Albumin Globulin Ratio 1.1 (0.9-2); Beta-Hydroxybutyrate 43.06 mg/dl (0.2-2.81); Bilirubin,Total 1.3 mg/dl (0.2-1); Globulin 3.9 gm/dl (2.5-4.0); Salicylate 3.2 mg/dl (2.8-20); Thyroid Stimulating Hormone 0.361 uIu/ml (0.300-4.500); Total Protein 8.2 gm/dl (6.4-8.2)
[2020-06-14] MEDS ORDERED: DKA GOAL RANGE 150-250 mg/dl ONE (08:48)
[2020-06-14] MEDS ORDERED: ED DKA INSULIN DRIP ONE (08:48)
[2020-06-14 08:52] LABS: Appearance Urine Cloudy (Clear); Bacteria Urine Automated Negative (Negative); Bilirubin Urine Negative (Negative); Blood Urine 2+ (Negative); Color Urine Yellow; Epithelial Cell Urine Auto 20-30 /lpf (0-5); Glucose Urine UA 3+ (Negative); Ketones Urine 3+ (Negative); Leukocyte Esterase Urine Negative (Negative); Nitrite Urine Negative (Negative); Protein Urine 1+ (Negative); Specific Gravity Urine 1.038 (1.000-1.030); Urobilinogen Urine Negative (Negative); pH Urine 5.5 (4.5-7.5)
[2020-06-14 09:15] LABS: Amphetamines+Metham, Urine Pos (Neg); Barbiturates, Urine Neg (Neg); Benzodiazepine, Urine Neg (Neg); Cocaine, Urine Neg (Neg); MDMA (Ecstacy), Urine Pos (Neg); Methadone, Urine Neg (Neg); Opiate, Urine Neg (Neg); Phencyclidine, Urine Neg (Neg)
[2020-06-14 09:19] LABS: Base Excess VBG -3.9 mEq/L; HCO3 VBG 21 mmol/L; PCO2 VBG 38 mmHg (38-50); PO2 VBG 26 mmHg; pH VBG 7.36 (7.36-7.41)
[2020-06-14 09:20] LABS: Oxygen Saturation VBG < 60.0 %
[2020-06-14] MEDS ORDERED: DEXTROSE 50% 50 ML SYRINGE IV PRN (09:30)
[2020-06-14] MEDS ORDERED: GLUCOSE 10 TABS/TUBE PO PRN (09:30)
[2020-06-14] MEDS ORDERED: GLUCOSE 40% GEL 15 GM TUBE PO PRN (09:30)
[2020-06-14] MEDS ORDERED: GLUCAGON FOR INJ 1 MG VIAL IM PRN (09:30)
[2020-06-14] MEDS ORDERED: NovoLIN-R BOLUS FROM BAG IV ONE (09:30)
[2020-06-14] MEDS ORDERED: CARBOHYDRATES FOR HYPOGLYCEMIA PO PRN (09:30)
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
[2020-06-14] MEDS: INSULIN REGULAR 250 UNITS in SODIUM CHLORIDE 0.9% 247.5 ML IV SCH (09:40)
[2020-06-14] MEDS ORDERED: NORMOSOL-R 1,000 ML IV SCH (10:03)
[2020-06-14] MEDS ORDERED: PENDING 1/2NSS+20mEq KCL IVF SCH (10:03)
[2020-06-14 10:04] LABS: Influenza A virus by PCR Negative (Neg); Influenza B virus by PCR Negative (Neg); RSV by PCR Negative (Neg); SARS CoV2 RNA(COVID-19) InHosp NEGATIVE (Negative)
[2020-06-14] MEDS: INSULIN ASPART 100 UNITS/ML 3 ML PEN SC SCH ×4 (10:04→21:07)
[2020-06-14] MEDS ORDERED: PENDING 1/2NSS+40mEq KCL IVF SCH (10:15)
[2020-06-14] MEDS ORDERED: POTASSIUM CHLORIDE 40 MEQ in SODIUM CHLORIDE 0.45 % 1,000 ML IV SCH (10:15)
[2020-06-14] MEDS ORDERED: PENDING D5 1/2NS+40mEq KCL IVF SCH (10:15)
[2020-06-14] MEDS: POTASSIUM CHLORIDE 40 MEQ in D5W AND 1/2NSS 1,000 ML IV SCH ×2 (15:20→19:17)
[2020-06-14] MEDS ORDERED: INSULIN REGULAR 250 UNITS in SODIUM CHLORIDE 0.9% 247.5 ML IV SCH (16:03)
[2020-06-14] MEDS ORDERED: INSULIN ASPART 100 UNITS/ML 3 ML PEN SC SCH (16:03)
[2020-06-14] MEDS ORDERED: LIDOCAINE 5% 1 PATCH TD PRN (16:15)
[2020-06-14 16:59] LABS: Calcium 8.4 mg/dl (8.5-10.1); Creatinine Clr Calc Pharmacy 62.7 ml/min; Est GFR (African American) 88.1; Potassium 4.2 mmol/L (3.5-5.1)
[2020-06-14 17:03] LABS: Phosphorus 1.6 mg/dl (2.5-4.9)
[2020-06-14] MEDS: POTASSIUM CHLORIDE 40 MEQ in SODIUM CHLORIDE 0.45 % 1,000 ML IV SCH ×2 (17:53→20:07)
[2020-06-14 20:54] LABS: BUN Creatinine Ratio 22.3 (10-20); Calcium 7.9 mg/dl (8.5-10.1); Creatinine Clr Calc Pharmacy 69.3 ml/min; Est GFR (African American) 99.3; Est GFR (Non-African American) 85.7; Magnesium 1.9 mg/dl (1.8-2.4); Potassium 4.1 mmol/L (3.5-5.1)
[2020-06-14 21:04] LABS: Phosphorus 1.4 mg/dl (2.5-4.9)
[2020-06-14] MEDS: NICOTINE 21 MG/24 HR TDSY TD SCH (21:08)
[2020-06-14] MEDS ORDERED: SODIUM PHOSPHATE 3 MMOL/1 ML INFUSION IV STA (21:09)
[2020-06-14] MEDS ORDERED: SODIUM PHOSPHATE 24 MMOL in SODIUM CHLORIDE 0.9% 500 ML IV ONE (21:45)
[2020-06-14] MEDS ORDERED: LORazepam 0.5 MG/1 ML VIAL IV STA (22:16)
[2020-06-14] MEDS ORDERED: LORazepam 2 MG/4 ML VIAL ONE (22:17)
[2020-06-15 01:00] LABS: BUN Creatinine Ratio 23.8 (10-20); Calcium 7.6 mg/dl (8.5-10.1); Creatinine Clr Calc Pharmacy 85.2 ml/min; Est GFR (African American) 127.4; Est GFR (Non-African American) 109.9; Magnesium 1.8 mg/dl (1.8-2.4); Potassium 4.1 mmol/L (3.5-5.1)
[2020-06-15 01:03] LABS: Phosphorus 3.3 mg/dl (2.5-4.9)
[2020-06-15] MEDS: POTASSIUM CHLORIDE 40 MEQ in SODIUM CHLORIDE 0.45 % 1,000 ML IV SCH ×4 (02:56→23:29)
[2020-06-15] MEDS ORDERED: PHARMACY GLYCEMIC MGMT CONSULT PRN (04:12)
[2020-06-15 04:37] LABS: Albumin Level 2.8 gm/dl (3.4-5.0); Bilirubin Direct 0.2 mg/dl (0-0.2); Calcium 7.8 mg/dl (8.5-10.1); Creatinine Clr Calc Pharmacy 102.8 ml/min; Est GFR (African American) 135.5; Est GFR (Non-African American) 116.9; Magnesium 1.9 mg/dl (1.8-2.4); Potassium 4.2 mmol/L (3.5-5.1)
[2020-06-15 04:45] LABS: Bilirubin,Total 0.6 mg/dl (0.2-1); Phosphorus 2.7 mg/dl (2.5-4.9); Total Protein 6.1 gm/dl (6.4-8.2)
[2020-06-15 06:08] LABS: Estimated Average Glucose 148 mg/dl; Hemoglobin A1C 6.8 % (4.5-5.6)
[2020-06-15 08:13] LABS: BUN Creatinine Ratio 21.6 (10-20); Calcium 8.2 mg/dl (8.5-10.1); Creatinine Clr Calc Pharmacy 94.3 ml/min; Est GFR (African American) 131.2; Est GFR (Non-African American) 113.2; Magnesium 1.9 mg/dl (1.8-2.4); Potassium 4.1 mmol/L (3.5-5.1)
[2020-06-15] MEDS ORDERED: INSULIN GLARGINE SOLOSTAR 100 UNITS/ML 3 ML PEN SC ONE (08:15)
[2020-06-15 08:16] LABS: Phosphorus 1.8 mg/dl (2.5-4.9)
[2020-06-15] MEDS: INSULIN ASPART 100 UNITS/ML 3 ML PEN SC SCH ×4 (08:25→20:36)
[2020-06-15] MEDS ORDERED: POTASSIUM PHOS 3 MMOL/1 ML INFUSION IV STA (09:11)
[2020-06-15] MEDS ORDERED: POTASSIUM PHOSPHATE 15 MMOL in SODIUM CHLORIDE 0.9% 250 ML IV ONE (09:30)
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
[2020-06-15 12:52] LABS: BUN Creatinine Ratio 13.6 (10-20); Calcium 8.3 mg/dl (8.5-10.1); Est GFR (African American) 100.7; Est GFR (Non-African American) 86.9; Magnesium 1.8 mg/dl (1.8-2.4); Potassium 4.6 mmol/L (3.5-5.1)
[2020-06-15 12:54] LABS: Phosphorus 3.2 mg/dl (2.5-4.9)
--- NOTE | 2020-06-15 13:48 | Pharmacy Report ---
Pharmacy Glycemic Short Note 2 - Date of Service June 15, 2020 - Glycemic Short BSG Results (Last 24 hours): 06/14/20 06/14/20 06/14/20 14:31 15:09 16:00 Glucose POC Glucose 222 H 243 H 287 H 06/14/20 06/14/20 06/14/20 16:24 17:04 17:59 Glucose 288 H POC Glucose 288 H 295 H 06/14/20 06/14/20 06/14/20 18:57 19:59 20:25 Glucose 278 H POC Glucose 214 H 267 H 06/14/20 06/14/20 06/14/20 21:02 22:02 23:02 Glucose POC Glucose 210 H 181 H 172 H 06/15/20 06/15/20 06/15/20 00:32 01:00 03:01 Glucose 189 H POC Glucose 170 H 89 06/15/20 06/15/20 06/15/20 03:29 04:05 04:32 Glucose 171 H POC Glucose 119 H 205 H 06/15/20 06/15/20 06/15/20 05:30 06:30 07:33 Glucose 182 H POC Glucose 219 H 237 H 06/15/20 06/15/20 06/15/20 07:39 08:51 10:06 Glucose POC Glucose 171 H 278 H 250 H 06/15/20 06/15/20 06/15/20 11:14 11:56 12:29 Glucose 241 H POC Glucose 210 H 227 H 06/15/20 13:30 Glucose POC Glucose 251 H OUTPATIENT ANTIDIABETIC REGIMEN: * Patient is a poor/unreliable historian, so it is unclear exactly what patient was taking prior to admission, * Per [facility]: Lantus 22 units SQ daily, Novolog SSI * Per most recent Endo visit notes (01/2020): Omnipod pump, 0.65units/hr basal rate (~15 units basal/day), CR 1:13, CF 50 * HbA1c: 6.8% (06/15/20) ASSESSMENT: * Ms Bentley is a 39yo Type 1 diabetic admitted with DKA. It is unclear whether she has been using an insulin pump recently or whether she has been using SQ basal/bolus insulin. * She reports to nursing that she has been taking Lantus 25 units daily. Her pump is reportedly not available at this time. * Pt was placed on an IV insulin infusion on admission. Labs have resolved and it is appropriate to transition to SQ insulin. * SQ basal/bolus insulin initiated this morning to begin transition. PLAN FOR INPATIENT GLYCEMIC CONTROL: * Basal insulin * Lantus 20 units SQ daily * May discontinue insulin infusion 6 hours after first dose of Lantus is given, or when instructed to "hold" per Insulin Infusion Adjustment Calculator, whichever happens first. * Bolus insulin * NovoLog per scale ACHS or Q6hrs while NPO, plus 00 and 04 until BSGs stable * Goal Range: Low 110 mg/dL - High 140 mg/dL * Correction Factor: 35 mg/dL/unit * Nutritional / Prandial insulin per carb ratio of 1 unit per 12 grams CHO consumed PLAN FOR DISCHARGE: * pending
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
[2020-06-15] MEDS: LORazepam 0.5 MG/1 ML VIAL IV PRN ×2 (17:08→23:48)
[2020-06-15] MEDS: INSULIN REGULAR 250 UNITS in SODIUM CHLORIDE 0.9% 247.5 ML IV SCH (19:38)
[2020-06-15] MEDS: NICOTINE 21 MG/24 HR TDSY TD SCH (20:35)
[2020-06-15] MEDS: risperiDONE 1 MG TABLET PO SCH (20:35)
[2020-06-16] MEDS: INSULIN ASPART 100 UNITS/ML 3 ML PEN SC SCH ×5 (00:02→17:49)
[2020-06-16] MEDS: LORazepam 0.5 MG/1 ML VIAL IV PRN ×2 (04:24→04:25)
[2020-06-16] MEDS: POTASSIUM CHLORIDE 40 MEQ in SODIUM CHLORIDE 0.45 % 1,000 ML IV SCH ×2 (06:21→19:13)
[2020-06-16 07:19] LABS: Albumin Level 2.8 gm/dl (3.4-5.0); BUN Creatinine Ratio 12.4 (10-20); Calcium 8.2 mg/dl (8.5-10.1); Est GFR (African American) 135.5; Est GFR (Non-African American) 116.9; Potassium 4.7 mmol/L (3.5-5.1)
[2020-06-16 07:22] LABS: Albumin Globulin Ratio 0.8 (0.9-2); Bilirubin,Total 0.8 mg/dl (0.2-1); Globulin 3.5 gm/dl (2.5-4.0); Total Protein 6.3 gm/dl (6.4-8.2)
[2020-06-16] MEDS: NICOTINE POLACRILEX 2 MG GUM MT PRN (08:12)
[2020-06-16] MEDS: risperiDONE 1 MG TABLET PO SCH ×2 (08:12→20:06)
[2020-06-16] MEDS ORDERED: INSULIN GLARGINE SOLOSTAR 100 UNITS/ML 3 ML PEN SC SCH (09:00)
[2020-06-16] MEDS ORDERED: OLANZapine 10 MG/2.1 ML SDV IM PRN (10:04)
[2020-06-16] MEDS ORDERED: OLANZapine 10 MG TAB PO PRN (10:04)
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
--- NOTE | 2020-06-16 11:08 | Hospitalist Progress Note ---
Date of Service June 16, 2020 Assessment & Plan (1) DKA (diabetic ketoacidoses): (2) Diabetes type 1, uncontrolled: Present on admission with glucose near the 400 Lab on admission with Potassium = 3.9, bicarb = 19, glucose =335, xs=118, ketones 43, anion gap=13 Pt was starting on insulin drip Received IV fluid and anion fgap closed Hgba1c 6.8 on 06/15/20 IV insulin drip was discontinued, then starting on Lantus 20units today Covid-19 negative on admission Pharmacy on board for glycemic management case discussed with pharmacy Pharmacy will continue to follow the patient if she transfers to the mental health unit Plan to continue Lantus 20 units since pt does not have her supply for the insulin pump Continue monitor BS Pt is medically stable to transfer to mental health unit (3) Positive urine drug screen: Tox screen is positive for ecstasy, amphetamines, opioids, marijuana Likely that patient has used illicit drugs which has triggered DKA, unknown at this time which drug she was using specifically, however methamphetamine is alford spected Elevated AST =307, ALT =115, trend with am labs to ensure improving. negative etoh on admission, likely drug induced. (4) Unspecified psychosis: Possible related to illicit drug like Methamphetamine Psych on board consulted Continue to hold marijuana, oxycodone due to psychosis Olanzapine 10 mg p.o. or IM for agitation and/or psychosis by psych team Continue One-to-one observation Pt is not safe to discharge home since she continues to have psychotic behavior Plan to transfer to inpatient psych treatment Pt cannot sign AMA (5) Transaminitis: Elevated AST =307, ALT =115 on admission Liver enzymes continue to trend down with AST 58 and ALT 65 (6) History of lumbar spinal fusion: -History of such in March 2010, status post surgery from T11-L3, follows with pain management, for oxycodone rx as an outpatient. Per his notes they are weaning down, currently on 5 mg q8h prn. (7) DVT prophylaxis: teds CODE: Full Dispo: medically stable to transfer to the mental health unit Admission and Anticipated Discharge Date Admission Date: June 14, 2020 Subjective Pt was seen and and examined for follow up of psychosis behavior Lying in bed with no distress. Pt continues to have psychosis behavior. She wants me to call the police for her to drive her home She said that she does not have a place to stay yet because she does want to go back to her place because someone keeps poisoning her with meth She said that she does not think if she has any supply for her pump at home Pt continues to believe that she is working with the [facility] Denies any chest pain, palpitation, dizziness and SOB Review of Systems Review of Systems: All systems reviewed & are unremarkable except as noted in Subjective Physical Exam Physical Exam: General- No acute distress Head- atraumatic Eyes- PERRL, EOMI, ENT- oropharynx clear Neck- supple, no JVD Lungs- clear to auscultation Heart- regular rhythm; no murmur Abdomen- normal bowel sounds, soft, nontender Extremities- no calf tenderness Neuro- alert, oriented x 3; PERRL, EOMI; no facial palsy; no dysarthria Skin- warm & dry Results & Data Results & Data ([facility]) Vital Signs (Past 12 Hours) Vital Signs Temp Pulse Pulse Resp BP Pulse Ox 06/16/20 08:00 91 H 06/16/20 07:50 36.6 C 88 16 130/84 96 06/16/20 03:59 36.3 C L 73 16 145/88 H 98 06/15/20 23:49 36.5 C 81 16 124/79 97 (1) DKA (diabetic ketoacidoses) Diabetes mellitus complication detail: without coma Diabetes mellitus type: type 1 Qualified Code(s): E10.10 - Type 1 diabetes mellitus with ketoacidosis without coma (2) Unspecified psychosis Psychosis type: unspecified psychosis type Qualified Code(s): F29 - Unspecified psychosis not due to a substance or known physiological condition
--- NOTE | 2020-06-16 12:58 | Pharmacy Report ---
Pharmacy Glycemic Short Note 2 - Date of Service June 16, 2020 - Glycemic Short BSG Results (Last 24 hours): 06/15/20 06/15/20 06/15/20 13:30 16:36 16:54 Glucose POC Glucose 251 H 392 H* 419 H* 06/15/20 06/15/20 06/15/20 18:25 20:30 23:55 Glucose POC Glucose 219 H 73 103 H 06/16/20 06/16/20 06/16/20 04:04 06:21 07:57 Glucose 198 H POC Glucose 109 H 220 H 06/16/20 11:16 Glucose POC Glucose 244 H OUTPATIENT ANTIDIABETIC REGIMEN: * Patient is a poor/unreliable historian, so it is unclear exactly what patient was taking prior to admission, * Per [facility]: Lantus 22 units SQ daily, Novolog SSI * Per most recent Endo visit notes (01/2020): Omnipod pump, 0.65units/hr basal rate (~15 units basal/day), CR 1:13, CF 50 * HbA1c: 6.8% (06/15/20) ASSESSMENT: 06/16/20 * Patient transitioned off insulin drip onto basal bolus insulin therapy yesterday * Blood sugars well controlled overnight, continue basal dosing at this time * Tighten CF/CR as BSGs rising with meals * Patient may be transferred to , will continue glycemic consult at that time * Patient does not have insulin pump supplies with her to transition to her pump 06/15/20 * Ms Bentley is a 39yo Type 1 diabetic admitted with DKA. It is unclear whether she has been using an insulin pump recently or whether she has been using SQ basal/bolus insulin. * She reports to nursing that she has been taking Lantus 25 units daily. Her pump is reportedly not available at this time. * Pt was placed on an IV insulin infusion on admission. Labs have resolved and it is appropriate to transition to SQ insulin. * SQ basal/bolus insulin initiated this morning to begin transition. PLAN FOR INPATIENT GLYCEMIC CONTROL: * Basal insulin * Lantus 20 units SQ daily * Bolus insulin - tighten * NovoLog per scale ACHS or Q6hrs while NPO, plus 00 and 04 until BSGs stable * Goal Range: Low 110 mg/dL - High 140 mg/dL * Correction Factor: 30 mg/dL/unit * Nutritional / Prandial insulin per carb ratio of 1 unit per 8 grams CHO consumed PLAN FOR DISCHARGE: * pending
[2020-06-16] MEDS ORDERED: LORazepam 0.5 MG/1 ML VIAL IV STA (19:38)
[2020-06-16] MEDS: NICOTINE 21 MG/24 HR TDSY TD SCH (20:06)
[2020-06-17 14:12] LABS: Amphetamine Urine, Confirm 6640 ng/mL (<250); MDA negative; MDEA negative; MDMA (Ecstasy) Urine, Confirm negative; Marijuana Quant, GCMS Urine 198 ng/mL (<5); Methamphetamine, Ur Confirm >15000 ng/mL (<250)
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
== END 2020-06-16 20:39 | DRG 639 ==
LOC: ED 07:03 → SUATTDRO 10:33 → 2S 10:33

== ENCOUNTER 2020-06-16 19:40 | Inpatient (IN) ==
[2020-06-16] MEDS ORDERED: SODIUM CHLORIDE 0.65% NA SOLN 45 ML (OCEAN) PRN (20:53)
[2020-06-16] MEDS ORDERED: hydrOXYzine HCl 25 MG TAB PO PRN (20:53)
[2020-06-16] MEDS ORDERED: MAGNESIUM HYDROXIDE SUSP 30 ML UDC PO PRN (20:53)
[2020-06-16] MEDS ORDERED: BISMUTH SUBSALICYLATE LIQD 236 ML PO PRN (20:53)
[2020-06-16] MEDS ORDERED: ACETAMINOPHEN 325 MG TAB PO PRN (20:53)
[2020-06-16] MEDS ORDERED: ALUMINUM/MAGNESIUM SUSP 30 ML UDC PO PRN (20:53)
[2020-06-16] MEDS ORDERED: LANTUS PER UNIT CHARGE SQ SCH (21:00)
[2020-06-16] MEDS ORDERED: INSULIN ASPART PER UNIT SQ SCH (21:00)
[2020-06-16] MEDS ORDERED: OLANZapine 10 MG TAB PO PRN (21:00)
[2020-06-16] MEDS ORDERED: OLANZapine 10 MG/2.1 ML SDV IM PRN (21:00)
[2020-06-16] MEDS ORDERED: PHARMACY GLYCEMIC MGMT CONSULT PRN (21:11)
[2020-06-16] MEDS ORDERED: CARBOHYDRATES FOR HYPOGLYCEMIA PO PRN (21:30)
[2020-06-16] MEDS ORDERED: GLUCAGON FOR INJ 1 MG VIAL IM PRN (21:30)
[2020-06-16] MEDS ORDERED: DEXTROSE 50% 50 ML SYRINGE IV PRN (21:30)
[2020-06-16] MEDS ORDERED: GLUCOSE 10 TABS/TUBE PO PRN (21:30)
[2020-06-16] MEDS ORDERED: GLUCOSE 40% GEL 15 GM TUBE PO PRN (21:30)
[2020-06-16] MEDS: PATIENT'S HEIGHT AND/OR WEIGHT NEEDED SCH (21:44)
[2020-06-16] MEDS: INSULIN ASPART 100 UNITS/ML 3 ML PEN SC SCH (22:39)
[2020-06-17] MEDS: INSULIN ASPART 100 UNITS/ML 3 ML PEN SC SCH ×7 (00:07→21:14)
[2020-06-17] MEDS: PATIENT'S HEIGHT AND/OR WEIGHT NEEDED SCH ×3 (00:17→06:02)
[2020-06-17] MEDS ORDERED: INSULIN GLARGINE SOLOSTAR 100 UNITS/ML 3 ML PEN SC SCH (09:00)
[2020-06-17] MEDS ORDERED: INSULIN ASPART 100 UNITS/ML 3 ML PEN SC STA (09:48)
[2020-06-17] MEDS: INSULIN GLARGINE SOLOSTAR 100 UNITS/ML 3 ML PEN SC SCH (09:48)
[2020-06-17] MEDS: NICOTINE 21 MG/24 HR TDSY TD SCH (09:56)
[2020-06-17 10:55] LABS: Calcium 8.7 mg/dl (8.5-10.1); Creatinine Clr Calc Pharmacy 54.3 ml/min; Est GFR (Non-African American) 62.9; Potassium 4.7 mmol/L (3.5-5.1)
[2020-06-17 11:10] LABS: Beta-Hydroxybutyrate 4.9 mg/dl (0.2-2.81)
[2020-06-17] MEDS ORDERED: INSULIN ASPART 100 UNITS/ML 3 ML PEN SC ONE ×2 (11:15)
[2020-06-17] MEDS ORDERED: INSULIN ASPART 100 UNITS/ML 3 ML PEN SC PRN (11:38)
--- NOTE | 2020-06-17 13:49 | Pharmacy Report ---
Pharmacy Glycemic Short Note 2 - Date of Service June 17, 2020 - Glycemic Short BSG Results (Last 24 hours): 06/16/20 06/17/20 06/17/20 21:28 00:01 03:58 Glucose POC Glucose 331 H* 255 H 199 H 06/17/20 06/17/20 06/17/20 09:29 09:30 10:16 Glucose 566 H* POC Glucose 515 H* 498 H* 06/17/20 06/17/20 06/17/20 10:45 10:47 13:07 Glucose POC Glucose 458 H* 441 H* 169 H OUTPATIENT ANTIDIABETIC REGIMEN: * Patient is a poor/unreliable historian, so it is unclear exactly what patient was taking prior to admission, * Per [facility]: Lantus 22 units SQ daily, Novolog SSI * Per most recent Endo visit notes (01/2020): Omnipod pump, 0.65units/hr basal rate (~15 units basal/day), CR 1:13, CF 50 * HbA1c: 6.8% (06/15/20) ASSESSMENT: 06/17/20 * Patient transferred to last PM. * AM blood glucose 515 mg/dL, patient reportedly drank regular markus keny without insulin coverage, corrected with 11 units of novolog, with instructions for 1 hr BSG check, 1 hr repeat was 441 mg/dL, patient at 7 grams of carbs at this time along with an additional 3 units of correctional. Repeat 2 hrs later 169 mg/dL. At this point, will loosen carb coverage, no additional correction, and will get another recheck to ensure pt not hypoglycemic 06/16/20 * Patient transitioned off insulin drip onto basal bolus insulin therapy yesterday * Blood sugars well controlled overnight, continue basal dosing at this time * Tighten CF/CR as BSGs rising with meals * Patient may be transferred to , will continue glycemic consult at that time * Patient does not have insulin pump supplies with her to transition to her pump 06/15/20 * Ms Bentley is a 39yo Type 1 diabetic admitted with DKA. It is unclear whether she has been using an insulin pump recently or whether she has been using SQ basal/bolus insulin. * She reports to nursing that she has been taking Lantus 25 units daily. Her pump is reportedly not available at this time. * Pt was placed on an IV insulin infusion on admission. Labs have resolved and it is appropriate to transition to SQ insulin. * SQ basal/bolus insulin initiated this morning to begin transition. PLAN FOR INPATIENT GLYCEMIC CONTROL: * Hold outpatient oral diabetes medications * Basal insulin * Lantus 22 units SQ QAM * Bolus insulin * NovoLog per scale ACHS or Q6hrs while NPO * Goal Range: Low 110 mg/dL - High 140 mg/dL * Correction Factor: 30 mg/dL/unit * Nutritional / Prandial insulin per carb ratio of 1 unit per 12 grams CHO consumed
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
--- NOTE | 2020-06-17 18:48 | Communication Note ---
Date of Service: June 17, 2020 Medication over objection. First opinion. I have personally examined the patient. She is floridly psychotic. Specifically, she has delusions of persecution as well as persecutory auditory hallucinations. She is clearly a danger to herself as a function of her psychosis and related dangerous behaviors which include hiding on the ground in the [place] overnight because she believes that her neighbors are trying to kill her. She also has not followed her diabetic diet nor has she followed her insulin regimen and presented to the hospital with potentially life-threatening ketoacidosis. In her case, antipsychotic medications such as, but not limited to, risperidone are medically necessary to recovery. She is likely to remain confined if not adequately treated with appropriate psychiatric medications, and I recommend that, if necessary, the patient be medicated over her objections. It may be prudent to give the patient another couple days to settle in and become more trusting. I would recommend risperidone 1 mg at bedtime since this is a medication that she has taken in the past and the record indicates that it has been effective. Dodd jair, other medications, such as olanzapine, may also be used.
[2020-06-17] MEDS: hydrOXYzine HCl 25 MG TAB PO PRN (21:21)
[2020-06-18] MEDS: hydrOXYzine HCl 25 MG TAB PO PRN (00:08)
[2020-06-18] MEDS ORDERED: INSULIN ASPART 100 UNITS/ML 3 ML PEN SC SCH ×2 (04:00)
[2020-06-18] MEDS: INSULIN ASPART 100 UNITS/ML 3 ML PEN SC SCH ×4 (09:47→20:33)
[2020-06-18] MEDS: INSULIN GLARGINE SOLOSTAR 100 UNITS/ML 3 ML PEN SC SCH ×3 (09:47→10:25)
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
[2020-06-18] MEDS: NICOTINE 21 MG/24 HR TDSY TD SCH (10:07)
[2020-06-18] MEDS ORDERED: OLANZAPINE 2.5 MG TAB PO PRN (12:11)
[2020-06-18] MEDS ORDERED: OLANZapine 5 MG TABLET PO PRN (12:11)
[2020-06-18] MEDS ORDERED: INSULIN ASPART 100 UNITS/ML 3 ML PEN SC ONE (16:00)
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
[2020-06-19 08:36] LABS: BUN Creatinine Ratio 28.4 (10-20); Calcium 8.6 mg/dl (8.5-10.1); Creatinine Clr Calc Pharmacy 107.7 ml/min; Est GFR (African American) 137.1; Est GFR (Non-African American) 118.3; Potassium 4.4 mmol/L (3.5-5.1)
[2020-06-19] MEDS: INSULIN GLARGINE SOLOSTAR 100 UNITS/ML 3 ML PEN SC SCH (09:22)
[2020-06-19] MEDS: INSULIN ASPART 100 UNITS/ML 3 ML PEN SC SCH ×4 (09:25→20:42)
[2020-06-19] MEDS: NICOTINE 21 MG/24 HR TDSY TD SCH (09:37)
--- NOTE | 2020-06-19 14:07 | Pharmacy Report ---
Pharmacy Glycemic Short Note 2 - Date of Service June 19, 2020 - Glycemic Short BSG Results (Last 24 hours): 06/18/20 06/18/20 06/18/20 15:38 17:23 20:20 Glucose POC Glucose 357 H* 300 H 190 H 06/19/20 06/19/20 06/19/20 07:44 09:08 12:44 Glucose 234 H POC Glucose 256 H 252 H OUTPATIENT ANTIDIABETIC REGIMEN: * Patient is a poor/unreliable historian, so it is unclear exactly what patient was taking prior to admission, * Per [facility]: Lantus 22 units SQ daily, Novolog SSI * Per most recent Endo visit notes (01/2020): Omnipod pump, 0.65units/hr basal rate (~15 units basal/day), CR 1:13, CF 50 * HbA1c: 6.8% (06/15/20) ASSESSMENT: 06/19: * Patient received total of 69 units of insulin yesterday, of which 26 units were basal (had increase ~20%) * Fasting remains elevated at 234 mg/dL, will continue same basal for now * Plan to tighten CR in AM, loosen at dinner as BSGs tend to fall throughout the day PLAN FOR INPATIENT GLYCEMIC CONTROL: * Hold outpatient oral diabetes medications * Basal insulin * Lantus 26 units Qam * Bolus insulin * NovoLog per scale ACHS or Q6hrs while NPO * Goal Range: Low 110 mg/dL - High 140 mg/dL * Correction Factor: 30 mg/dL/unit * Nutritional / Prandial insulin per carb ratio of 1 unit per 11 grams CHO consumed
[2020-06-19] MEDS: OLANZAPINE 2.5 MG TAB PO SCH (20:47)
[2020-06-19] MEDS: hydrOXYzine HCl 25 MG TAB PO PRN (22:46)
[2020-06-20] MEDS ORDERED: INSULIN ASPART 100 UNITS/ML 3 ML PEN SC SCH ×2 (08:00→17:15)
--- NOTE | 2020-06-20 08:18 | Discharge Summary ---
Date of Service June 16, 2020 Discharge Data Allergies Allergy/AdvReac Type Severity Reaction Status Date / Time niacin Allergy Severe Hives Verified 04/19/20 14:40 latex Allergy Mild Rash Verified 04/19/20 14:40 Discharge Plan Discharge Items Reason For Visit: PSYCHOSIS Follow-up/Referrals: Mynor Bragg DO [Primary Care Provider] - Medications and DC Order Prescriptions: No Action Medical Marijuana See Rx Instructions .ROUTE .COMPLEX PRN (Reason: PTSD) RF: 0 insulin aspart U-100 [Novolog U-100 Insulin aspart] 100 unit/mL solution 1 unit subcut BIDWMEAL RF: 0 Lantus U-100 Insulin 100 unit/mL solution 22 unit SQ QPM RF: 0 Glucagon Emergency Kit (human) 1 mg recon soln 1 mg SQ ONCE PRN (Reason: Hypoglycemia) RF: 0 nicotine 21 mg/24 hr patch 24 hour 1 patch transdermal DAILY RF: 0 Admission Data Admit Date/Time: 06/16/20 20:48 Attending Provider: Villa Verma Admit Provider: Kaitlynn Celestin Primary Care Provider: Mynor Bragg Other Interventions: PSY Interdisciplinary Discharge Planning Last Done: 06/17/20 10:46
--- NOTE | 2020-06-20 08:27 | Discharge Summary ---
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 to your appointments. WHO TO CALL AND WHEN: Medical Emergencies: For questions or emergencies related to your hospital stay, please contact the Inpatient Behavioral Health Unit at [phone]. A tutoring clinician is on-call 01/10 for the Behavioral Health Unit for emergencies At any time you feel your situation is an emergency, you may also call 911 immediately. Pending Studies at Discharge: No Stand-Alone Forms: [facility], Smoking Cessation Medications and DC Order Prescriptions: New olanzapine 2.5 mg Tablet 2.5 mg PO BID Qty: 60 RF: 0 Continued insulin aspart U-100 [Novolog U-100 Insulin aspart] 100 unit/mL solution 1 unit subcut BIDWMEAL RF: 0 Lantus U-100 Insulin 100 unit/mL solution 22 unit SQ QPM RF: 0 Glucagon Emergency Kit (human) 1 mg recon soln 1 mg SQ ONCE PRN (Reason: Hypoglycemia) RF: 0 nicotine 21 mg/24 hr patch 24 hour 1 patch transdermal DAILY RF: 0 Discontinued Medical Marijuana See Rx Instructions .ROUTE .COMPLEX PRN (Reason: PTSD) RF: 0 Discharge Orders: Discharge Order (Routine); Ordered 06/20/20 Ordered By: Anastasia Rodriguez Admission Data Admit Date/Time: 06/16/20 20:48 Attending Provider: Villa Verma Admit Provider: Kaitlynn Celestin Primary Care Provider: Mynor Bragg Other Interventions: PSY Interdisciplinary Discharge Planning Last Done: 06/20/20 09:34 Coding Level of Care Code 93099 D/C day mgmt > 30 min Diagnoses Psychosis F29 Type 1 diabetes E10.9 Drug dependence F19.20
[2020-06-20] MEDS: OLANZAPINE 2.5 MG TAB PO SCH (09:29)
[2020-06-20] MEDS: NICOTINE 21 MG/24 HR TDSY TD SCH (09:29)
[2020-06-20] MEDS: INSULIN GLARGINE SOLOSTAR 100 UNITS/ML 3 ML PEN SC SCH (09:33)
--- NOTE | 2020-06-20 10:11 | Pharmacy Report ---
Pharmacy Glycemic Short Note 2 - Date of Service June 20, 2020 - Glycemic Short BSG Results (Last 24 hours): 06/19/20 06/19/20 06/19/20 12:44 15:36 20:11 POC Glucose 252 H 133 H 98 06/20/20 08:25 POC Glucose 235 H OUTPATIENT ANTIDIABETIC REGIMEN: * Patient is a poor/unreliable historian, so it is unclear exactly what patient was taking prior to admission, * Per [facility]: Lantus 22 units SQ daily, Novolog SSI; pt reports to nurse she was taking 25 units daily * Per most recent Endo visit notes (01/2020): Omnipod pump, 0.65units/hr basal rate (~15 units basal/day), CR 1:13, CF 50 * HbA1c: 6.8% (06/15/20) ASSESSMENT: 06/20: Patient received 68 units of insulin * 26 units of basal, 42 units of correctional/prandial coverage * BSGS 98-256 mg/dL 06/19: * Patient received total of 69 units of insulin yesterday, of which 26 units were basal (had increase ~20%) * Fasting remains elevated at 234 mg/dL, will continue same basal for now * Plan to tighten CR in AM, loosen at dinner as BSGs tend to fall throughout the day PLAN FOR INPATIENT GLYCEMIC CONTROL: * Hold outpatient oral diabetes medications * Basal insulin * Lantus 26 units Qam * Bolus insulin * NovoLog per scale ACHS or Q6hrs while NPO * Goal Range: Low 110 mg/dL - High 140 mg/dL * Correction Factor: 30 mg/dL/unit * Nutritional / Prandial insulin per carb ratio of 1 unit per 9 grams CHO consumed, 1 unit per 11 grams CHO at dinner/bedtime Plan for discharge Per nursing pt likely to be discharged this afternoon, pt had brought in insulin pump supplies but will not restart insulin pump on MHU d/t restrictions with insulin pump use. Patient did receive her full lantus dose of 26 units this morning. Review of last endocrine note- pump setting had been adjusted to restart the pump at a lower basal rate. Uncertain of current pump rates. Patient should follow-up with endocrine via telephone today to review these settings for outpatient adjustment. Currently has an appointment scheduled for 07/13/20. Would recommend patient continue MDI until she speaks with endo but if she is going to restart her insulin pump today after discharge she should do a temporary basal rate of 0.0 units until tomorrow ~0800 AM as she has already received her full daily dose of lantus. Per RN she reports knowing how to set a temporary basal rate and declined my need to speak with patient.
== END 2020-06-20 11:20 | disposition home or self-care (01) | DRG 885 ==
LOC: 3S 20:48

== ENCOUNTER 2020-06-27 18:11 | Inpatient (IN) ==
[2020-06-27] MEDS ORDERED: FAMOTIDINE 20MG IV PUSH 20 MG/5 ML SYR IV STA (18:22)
[2020-06-27] MEDS ORDERED: ONDANSETRON INJ 2 MG/ML 2 ML VIAL IV STA (18:22)
[2020-06-27] MEDS ORDERED: SODIUM CHLORIDE 0.9% 1000ML 2,000 ML IV ONE (18:22)
[2020-06-27] MEDS ORDERED: diphenhydrAMINE 50 MG/ML VIAL IV STA (18:29)
[2020-06-27] MEDS ORDERED: METOCLOPRAMIDE HCL INJ 5 MG/ML 2 ML VIAL IV STA (18:29)
[2020-06-27] MEDS ORDERED: ACETAMINOPHEN 1,000 MG/100 ML VIAL IV STA (18:30)
[2020-06-27 18:45] LABS: Basophils # (auto) 0.02 K/uL (0-0.2); Basophils % (auto) 0.1 %; Hemoglobin 12.6 g/dL (12.0-16.0); Immature Granulocytes # (auto) 0.05 K/uL (0.00-0.02); Immature Granulocytes % (auto) 0.4 %; Lymphocytes # (auto) 0.72 K/uL (1.2-3.4); Lymphocytes % (auto) 5.1 %; Mean Corpuscular Hemoglobin 30.2 pg (25-34); Mean Corpuscular Hgb Conc 34.1 g/dL (32-36); Mean Corpuscular Volume 88.7 fL (80-100); Mean Platelet Volume 9.1 fL (7.4-10.4); Monocytes # (auto) 0.56 K/uL (0.11-0.59); Neutrophils # (auto) 12.77 K/uL (1.4-6.5); Neutrophils % (auto) 90.4 %; Platelet Count 336 K/uL (130-400); RDW Coefficient of Variation 16.1 % (11.5-14.5); RDW Standard Deviation 51.8 fL (36.4-46.3); Red Blood Count 4.17 M/uL (4.2-5.4); White Blood Count 14.12 K/uL (4.8-10.8)
[2020-06-27 18:49] LABS: Base Excess VBG -15.8 mEq/L; Oxygen Saturation VBG 81.6 %; pH VBG 7.23 (7.36-7.41)
[2020-06-27 18:56] LABS: iSTAT Creatinine 0.8 mg/dl (0.6-1.3); iSTAT Hemoglobin 13.6 g/dl (12.0-16.0); iSTAT Ionized Calcium 1.12 mmol/l (1.12-1.32); iSTAT Potassium 5.6 mmol/L (3.3-5.0)
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
[2020-06-27 19:05] LABS: Troponin I 0.019 ng/ml (0-0.045)
[2020-06-27 19:07] LABS: Pregnancy Test, Serum Negative (Negative)
--- NOTE | 2020-06-27 19:11 | XRay Report ---
XR chest 1V portable CLINICAL HISTORY: vomiting COMPARISON STUDY: Chest CT and chest radiograph April 17, 2018. FINDINGS: Lung volumes are normal. Lungs are clear. There is no pneumothorax or pleural effusion. Car diac size is normal. Mediastinal contours are normal. There is no evidence for pulmonary edema. Spine fusion hardware is partially imaged. IMPRESSION: No acute cardiopulmonary findings. ACT 112: Negative or not required by law. Electronically signed by: Derrell Hernandez M.D. 06/27/2020 7:10 PM
[2020-06-27 19:26] LABS: Appearance Urine Clear (Clear); Bilirubin Urine Negative (Negative); Blood Urine Negative (Negative); Color Urine Yellow; Glucose Urine UA 3+ (Negative); Ketones Urine 4+ (Negative); Leukocyte Esterase Urine Negative (Negative); Nitrite Urine Negative (Negative); Protein Urine Negative (Negative); Specific Gravity Urine 1.027 (1.000-1.030); Urobilinogen Urine Negative (Negative)
[2020-06-27 19:40] LABS: Albumin Globulin Ratio 0.8 (0.9-2); Albumin Level 3.5 gm/dl (3.4-5.0); BUN Creatinine Ratio 28.5 (10-20); Bilirubin Direct 0.3 mg/dl (0-0.2); Creatinine Clr Calc Pharmacy 55.3 ml/min; Est GFR (African American) 74.6; Est GFR (Non-African American) 64.3; Globulin 4.2 gm/dl (2.5-4.0); Magnesium 2.3 mg/dl (1.8-2.4); Phosphorus 6.3 mg/dl (2.5-4.9); Potassium 5.6 mmol/L (3.5-5.1); Total Protein 7.7 gm/dl (6.4-8.2)
[2020-06-27] MEDS ORDERED: DKA GOAL RANGE 150-250 mg/dl ONE ×2 (19:46→22:34)
[2020-06-27 19:51] LABS: Amphetamines+Metham, Urine Pos (Neg); Barbiturates, Urine Neg (Neg); Benzodiazepine, Urine Neg (Neg); Cocaine, Urine Neg (Neg); MDMA (Ecstacy), Urine Neg (Neg); Methadone, Urine Neg (Neg); Opiate, Urine Neg (Neg); Phencyclidine, Urine Neg (Neg)
[2020-06-27] MEDS ORDERED: INSULIN REGULAR 250 UNITS in SODIUM CHLORIDE 0.9% 247.5 ML IV SCH ×2 (20:00→22:34)
[2020-06-27] MEDS ORDERED: SODIUM CHLORIDE 0.45 % 1,000 ML IV SCH (20:00)
[2020-06-27 20:29] LABS: Influenza A virus by PCR Negative (Neg); Influenza B virus by PCR Negative (Neg); RSV by PCR Negative (Neg); SARS CoV2 RNA(COVID-19) InHosp NEGATIVE (Negative)
[2020-06-27 20:35] LABS: Beta-Hydroxybutyrate 96.52 mg/dl (0.2-2.81)
[2020-06-27] MEDS ORDERED: ACETAMINOPHEN 325 MG TAB PO PRN (22:34)
[2020-06-27] MEDS ORDERED: NITROGLYCERIN SL 0.4 MG/TAB TAB SL PRN (22:34)
[2020-06-27] MEDS ORDERED: LORazepam 0.5 MG/1 ML VIAL IV PRN (22:34)
[2020-06-27] MEDS ORDERED: POLYETHYLENE (MIRALAX) 17 GM PACK PO PRN (22:34)
[2020-06-27] MEDS ORDERED: PENDING D5 1/2NS+20mEq KCL IVF SCH (22:34)
[2020-06-27] MEDS ORDERED: DC ALL PREVIOUSLY ORDERED DIABETES MEDS ONE (22:34)
[2020-06-27] MEDS ORDERED: SODIUM CHLORIDE 0.9% 1000ML 1,000 ML IV SCH (22:34)
[2020-06-27] MEDS ORDERED: ONDANSETRON INJ 2 MG/ML 2 ML VIAL IV PRN (22:34)
[2020-06-27] MEDS ORDERED: PENDING 1/2NSS+20mEq KCL IVF SCH (22:34)
[2020-06-27] MEDS ORDERED: PHARMACY GLYCEMIC MGMT CONSULT PRN (22:48)
[2020-06-27 23:37] LABS: BUN Creatinine Ratio 29.7 (10-20); Calcium 8.3 mg/dl (8.5-10.1); Creatinine Clr Calc Pharmacy 58.6 ml/min; Est GFR (African American) 79.9; Est GFR (Non-African American) 68.9; Magnesium 2.3 mg/dl (1.8-2.4); Phosphorus 3.7 mg/dl (2.5-4.9); Potassium 4.2 mmol/L (3.5-5.1)
[2020-06-28] MEDS: D5W AND 1/2NSS + 20MEQ KCL 20 MEQ/1,000 ML BAG IV SCH ×4 (00:20→18:19)
[2020-06-28] MEDS: OLANZAPINE 2.5 MG TAB PO SCH ×3 (00:20→20:56)
[2020-06-28 00:26] LABS: Beta-Hydroxybutyrate 77.41 mg/dl (0.2-2.81)
--- NOTE | 2020-06-28 01:12 | History and Physical Report ---
DATE OF ADMISSION: 06/27/2020 CHIEF COMPLAINT: The patient seems to be in DKA. HISTORY OF PRESENT ILLNESS: This is a 39-year-old female with past medical history significant for type 1 diabetes, depression, medical marijuana, posttraumatic stress disorder. The patient has history of polysubstance abuse. Recently, she was in the hospital from 06/14/2020 to 06/16/20 for DKA and in behavioral unit from 06/16/2020 to 06/20/2020 for psychosis. At that time, she was positive for amphetamines and she adamantly refused that she was taking them and she was telling that her neighbors are sneaking in and giving drugs to her from unknown mechanism into her body and also taking her insulin from her machine. It seems as per records she has a history of multiple drug use like heroin, opiates, ecstasy, methamphetamine, cocaine, alcohol, marijuana. Today she came to the ER because of acute onset of nausea, vomiting with the blood sugars in the 500s. She told the ER physician that her Dexcom stopped working and needs a replacement. Currently, the patient is drowsy, not answering any questions. As per nursing staff, she is also doing the same thing. Could not get any history from the patient. Initial blood pressure was low, with the fluids the blood pressure came up. She was started on her insulin drip. Currently vitals are okay. Labs showed WBC of 14. Sodium of 131, potassium of 5.6, CO2 of 8, anion gap 22, glucose 533. Urinalysis +4 ketones and +3 glucose. Drug screen positive for amphetamines, marijuana. SARS-CoV-2 PCR negative. Influenza A and B and RSV PCR negative. Chest x-ray, no acute cardiopulmonary findings. EKG shows sinus tachycardia. ALLERGIES: LATEX, NIACIN. PAST MEDICAL HISTORY: As mentioned above. PAST SURGICAL HISTORY: , dental surgery, genital warts removed, pilonidal cyst removed, spinal fusion, trigger finger release. MEDICATIONS: She is on insulin pump, meloxicam 15 mg daily, nicotine patch transdermal daily, olanzapine 2.5 mg p.o. b.i.d. FAMILY HISTORY: Significant for brother has low platelets; father has gastrointestinal disorder; maternal grandmother has cancer, diabetes; maternal grandfather has heart disorder, hypertension; paternal grandfather has hypertension; paternal grandmother has diabetes. SOCIAL HISTORY: Single, quit smoking in 2004, currently on nicotine patch. Alcohol occasional as per the records. Drug abuse, polysubstance abuse. REVIEW OF SYSTEMS: Currently drowsy, not answering any questions. Could not get complete review of systems. PHYSICAL EXAMINATION: GENERAL: The patient is drowsy, opens eyes on calling. VITAL SIGNS: Temperature 37, pulse 111, respiratory rate 24, blood pressure 103/52, oxygen 97% on room air. HEENT: Atraumatic. No facial droop seen. NECK: No neck masses seen. CARDIOVASCULAR: S1, S2 regular. Somewhat tachycardia. No murmurs. RESPIRATORY SYSTEM: Normal AP diameter. No accessory muscle use. No wheezing, no crackles. ABDOMEN: Soft, bowel sounds present. Mild discomfort. No distention. CENTRAL NERVOUS SYSTEM: Currently drowsy, not answering any questions. Seems to be moving her extremities. No facial droop seen. EXTREMITIES: No edema, no erythema. LABORATORY DATA: WBC 14.1, hemoglobin 12.6, hematocrit 37, platelets 336. PT 10, INR 1. Venous blood gas, pH of 7.2, pCO2 of 55, pO2 of 53, bicarbonate 10, oxygen 81%. Sodium 131, potassium 5.6, chloride 101, CO2 of 8, BUN 31, creatinine 1.09, serum glucose 533, phosphorus 6.3, calcium 9, magnesium 2.3, total bilirubin 1, direct bilirubin 0.3, AST 36, ALT 72, alkaline phosphatase 113, total creatinine kinase 285, troponin I of 0.019, lipase 49, beta hydroxybutyric acid 96.52. HCG qualitative negative. Urinalysis, glucose +3 positive, urine ketones +4 positive. Urine drug screen positive for methamphetamines and marijuana. SARS-CoV-2 PCR negative. Influenza A and B PCR negative, RSV PCR negative. IMAGING: Chest x-ray: No acute cardiopulmonary findings. EKG: Sinus tachycardia at a rate of 107, no acute ST changes seen. QTc of 475. ASSESSMENT AND PLAN: This is a 39-year-old female who presents with diabetic ketoacidosis and also drug abuse. 1. Diabetic ketoacidosis: Will discontinue her insulin pump for now and place her on DKA protocol with insulin drip. Aggressive fluids as per DKA protocol and maintenance fluids as per DKA protocol. Labs and glucose check as per protocol. Follow HbA1c level.Pharmacy and can patcher consult. Closely monitor in the med tele. 2. History of polysubstance abuse, Again positive for amphetamines and marijuana. . Last admission, she narrated a story of neighbors manipulating and getting into her system the amphetamines. She has been positive in the past also. Needs counseling. 3. History of psychosis: Last admission, she was somewhat psychosis and was started on olanzapine, which she will continue. If any concerns, will consult psychiatry. 4. Metabolic acidosis from diabetic ketoacidosis: Follow the labs. 5. Hyperkalemia: Getting insulin drip. We will follow the DKA labs. 6. Deep venous thrombosis prophylaxis: Sequential compression devices. DISPOSITION: Closely monitor in med tele. Level 1 full code. To be determined. MTDD
[2020-06-28 03:04] LABS: BUN Creatinine Ratio 29.4 (10-20); Calcium 7.7 mg/dl (8.5-10.1); Creatinine Clr Calc Pharmacy 63.5 ml/min; Est GFR (African American) 88.1; Magnesium 2.3 mg/dl (1.8-2.4); Phosphorus 3.3 mg/dl (2.5-4.9); Potassium 4.7 mmol/L (3.5-5.1)
[2020-06-28 07:05] LABS: Estimated Average Glucose 166 mg/dl; Hemoglobin A1C 7.4 % (4.5-5.6)
[2020-06-28 08:28] LABS: BUN Creatinine Ratio 27.2 (10-20); Creatinine Clr Calc Pharmacy 75.4 ml/min; Est GFR (African American) 108.4; Est GFR (Non-African American) 93.5; Magnesium 2.1 mg/dl (1.8-2.4)
[2020-06-28 08:30] LABS: Phosphorus 2.6 mg/dl (2.5-4.9)
[2020-06-28] MEDS: NICOTINE 21 MG/24 HR TDSY TD SCH (09:46)
[2020-06-28] MEDS: INSULIN ASPART 100 UNITS/ML 3 ML PEN SC SCH ×6 (10:06→23:31)
[2020-06-28] MEDS ORDERED: INSULIN GLARGINE SOLOSTAR 100 UNITS/ML 3 ML PEN SC SCH (11:00)
[2020-06-28 11:19] LABS: BUN Creatinine Ratio 19.5 (10-20); Calcium 7.7 mg/dl (8.5-10.1); Creatinine Clr Calc Pharmacy 59.7 ml/min; Est GFR (African American) 81.8; Est GFR (Non-African American) 70.6; Magnesium 2.9 mg/dl (1.8-2.4); Potassium 4.2 mmol/L (3.5-5.1)
[2020-06-28 11:20] LABS: Phosphorus 2.1 mg/dl (2.5-4.9)
[2020-06-28] MEDS ORDERED: INSULIN GLARGINE SOLOSTAR 100 UNITS/ML 3 ML PEN SC ONE (11:45)
--- NOTE | 2020-06-28 14:08 | Electrocardiogram Report ---
Test Reason : Blood Pressure : / mmHG Vent. Rate : 107 BPM Atrial Rate : 107 BPM P-R Int : 140 ms QRS Dur : 082 ms QT Int : 356 ms P-R-T Axes : 086 -22 044 degrees QTc Int : 475 ms Sinus tachycardia Otherwise normal ECG When compared with ECG of 17-APR-2018 12:47, Questionable change in QRS axis Confirmed by Da Perales ([id number]) on 06/28/2020 2:08:15 PM Referred By: REFERRED SELF Confirmed By:Torsten Perales
[2020-06-28 14:59] LABS: BUN Creatinine Ratio 23.2 (10-20); Calcium 8.4 mg/dl (8.5-10.1); Creatinine Clr Calc Pharmacy 69.3 ml/min; Est GFR (African American) 97.9; Est GFR (Non-African American) 84.5; Phosphorus 1.7 mg/dl (2.5-4.9); Potassium 3.9 mmol/L (3.5-5.1)
[2020-06-28] MEDS ORDERED: DC IV INSULIN INFUSION 1 EA DEVI SCH (15:00)
--- NOTE | 2020-06-28 15:17 | Pharmacy Report ---
Pharmacy Glycemic Short Note 2 - Date of Service June 28, 2020 - Glycemic Short BSG Results (Last 24 hours): 06/27/20 06/27/20 06/27/20 18:25 18:34 18:42 Glucose 533 H* POC Glucose 503 H* POC Glucose (other) 521 H* 06/27/20 06/27/20 06/27/20 19:54 21:10 21:56 Glucose POC Glucose 454 H* 400 H* 341 H* POC Glucose (other) 06/27/20 06/27/20 06/28/20 22:49 22:59 00:03 Glucose 304 H* POC Glucose 287 H 209 H POC Glucose (other) 06/28/20 06/28/20 06/28/20 01:03 01:57 02:32 Glucose 234 H POC Glucose 220 H 237 H POC Glucose (other) 06/28/20 06/28/20 06/28/20 02:59 05:32 06:54 Glucose POC Glucose 209 H 193 H 167 H POC Glucose (other) 06/28/20 06/28/20 06/28/20 07:36 08:59 10:48 Glucose 174 H 214 H POC Glucose 154 H POC Glucose (other) 06/28/20 06/28/20 06/28/20 11:16 13:21 14:00 Glucose POC Glucose 191 H 181 H 104 H POC Glucose (other) 06/28/20 06/28/20 14:20 14:20 Glucose 102 H POC Glucose 95 POC Glucose (other) OUTPATIENT ANTIDIABETIC REGIMEN: * Novolog pump - 15-25 units? basal per day; CR 1: 10? ASSESSMENT: * 39 y/o F admitted for DKA. Patient is a Type 1 diabetic managed on a Novolog pump at home. * She was started on insulin drip last night per DKA protocol. Drip rate was 2.5 units/hr for awhile averaging 30 units of IV insulin in the past 12 hrs. * Additionally she was ordered a diet with breakfast today. Novolog bolus was given based on calculated carb ratio totalling 22 units so far today with meals. * Labs normalized. Gap is closed. Lantus ordered at noon today. This should help patient come off the insulin drip. Anticipate that insulin drip should be discontinued by 4 pm today. * Novolog parameters ordered based data from recent admission. PLAN FOR INPATIENT GLYCEMIC CONTROL: * Basal insulin * Lantus 22 units SQ x1 at noon * Bolus insulin * NovoLog per scale ACHS or Q6hrs while NPO * Goal Range: Low 110 mg/dL - High 140 mg/dL * Correction Factor: 30 mg/dL/unit * Nutritional / Prandial insulin per carb ratio of 1 unit per 9 grams CHO consumed PLAN FOR DISCHARGE: * TBD
[2020-06-28] MEDS ORDERED: POTASSIUM PHOS 3 MMOL/1 ML INFUSION IV STA (17:48)
--- NOTE | 2020-06-28 17:51 | Hospitalist Progress Note ---
Date of Service June 28, 2020 Assessment & Plan (1) DKA (diabetic ketoacidoses): Known history of type 1 diabetes on insulin pump Admitted with intractable nausea vomiting abdominal pain started day before admission Noted to have diabetic ketoacidosis Started with intravenous fluid and electrolyte replacement and also was put on intravenous insulin Condition improved throughout this morning Now has been on oral diet and regular insulin doses which is managed by the pharmacist No source of infection If she is feeling much better,can be discharged tomorrow (2) Intractable nausea and vomiting: Secondary to diabetic ketoacidosis Symptomatic management Condition resolved (3) Type 1 diabetes: As above Glycemic management pharmacist is on board (4) Substance abuse: History of polysubstance abuse Urine tox screen are positive for amphetamine, marijuana and others are pending No acute withdrawal or intoxication from that Will observe (5) Psychosis: No acute anxiety and/or psychosis Recent inpatient psychiatric care We will continue current medications Remains stable DVT prophylaxis SCDs and increase in ambulation CODE STATUS Full Likely discharge tomorrow if medically stable Admission and Anticipated Discharge Date Admission Date: June 27, 2020 Subjective 06/28/2020 The patient was seen and examined in medical telemetry unit She has been feeling a lot better without any nausea and or vomiting A diet was ordered for her She will have her regular insulin doses and the drip will be taken down sometime this afternoon. Review of Systems Review of Systems: All systems reviewed and are unremarkable except as noted below Gastrointestinal: no abdominal pain, no bloating, no nausea and no vomiting Neurologic: + generalized weakness Physical Exam Physical Exam: Sitting on bed without any acute distress Constitutional: average body habitus; not ill appearing Eyes: PERRL, conjunctivae normal, anicteric sclerae ENMT: external ear and nose normal, oropharynx normal Neck: trachea midline, no thyromegaly Respiratory: no respiratory distress Auscultation: lungs clear to auscultation bilaterally Cardiovascular: Rate/Rhythm: regular rate and regular rhythm Heart Sounds: no murmur Extremities: no edema Gastrointestinal (Abdomen): Inspection/Auscultation: normal bowel sounds; abdomen not distended Percussion/Palpation: abdomen soft; abdomen nontender Musculoskeletal: No acute arthritis in any joint Neurologic: Alert, awake and oriented x3. No focal sensory and motor deficit appreciated Psychiatric: A+Ox3, euthymic affect Lymphatic: no cervical or axillary lymphadenopathy Results & Data Results & Data ([facility]) Vital Signs (Past 12 Hours) Vital Signs Temp Pulse Pulse Resp BP Pulse Ox 06/28/20 15:29 36.9 C 86 18 94/61 L 98 06/28/20 11:09 36.8 C 84 18 99/63 L 98 06/28/20 07:32 89 06/28/20 07:10 36.7 C 82 18 109/60 97 Laboratory Results Short CBC 06/27/20 Range/Units 18:34 WBC 14.12 H (4.8-10.8) K/uL Hgb 12.6 (12.0-16.0) g/dL Hct 37.0 (37-47) % Plt Count 336 (130-400) K/uL BMP 06/27/20 06/27/20 06/28/20 18:34 22:49 02:32 Sodium 131 L 138 D 141 Potassium 5.6 H 4.2 D 4.7 Chloride 101 110 H 115 H Carbon Dioxide 8 L* 9 L* 15 L BUN 31 H 31 H 28 H Creatinine 1.09 1.03 0.95 Glucose 533 H* 304 H* 234 H Calcium 9.0 8.3 L 7.7 L 06/28/20 06/28/20 06/28/20 07:36 10:48 14:20 Sodium 140 139 140 Potassium 4.0 4.2 3.9 Chloride 115 H 115 H 113 H Carbon Dioxide 20 L 17 L 20 L BUN 22 H 20 H 20 H Creatinine 0.80 1.01 0.87 Glucose 174 H 214 H 102 H Calcium 8.0 L 7.7 L 8.4 L Cardiac Enzymes 06/27/20 Range/Units 18:34 Total Creatine Kinase 285 H (26-192) U/L Troponin I 0.019 (0-0.045) ng/ml Liver Function 06/27/20 Range/Units 18:34 Total Bilirubin 1.0 (0.2-1) mg/dl Direct Bilirubin 0.3 H (0-0.2) mg/dl AST 36 (15-37) U/L ALT 72 (12-78) U/L Alkaline Phosphatase 113 (45-117) U/L Albumin 3.5 (3.4-5.0) gm/dl Urine 06/27/20 Range/Units 19:11 Urine Color Yellow Urine Appearance Clear (Clear) Urine pH 5.0 (4.5-7.5) Ur Specific [place] 1.027 (1.000-1.030) Urine Protein Negative (Negative) Urine Glucose (UA) 3+ H (Negative) Medications Administered Current Inpatient Medications Acetaminophen (Acetaminophen 325 Mg Tab) 650 mg PO Q4H PRN PRN Reason: Pain or Fever Stop: 07/27/20 22:33 Insulin Human Regular 250 (units/ Sodium Chloride) 250 mls @ 2.88 mls/hr IV .Q24H JOAN; Protocol Stop: 07/27/20 19:59 Last Titration: 06/28/20 16:59 Dose: 0.06 units/kg/hr, 2.9 mls/hr Documented by: Lorazepam (Ativan) 0.5 mg in 1 mls @ 1 mls/min IV Q4H PRN PRN Reason: Anxiety/Agitation Stop: 07/27/20 22:33 Potassium Chloride/Dextrose/Sod Cl (D5w And 1/2nss + 20meq Kcl) 20 meq in 1,000 mls @ 100 mls/hr IV .Q10H [facility] Stop: 07/28/20 00:14 Last Admin: 06/28/20 09:43 Dose: 200 mls/hr Documented by: Insulin Aspart (Insulin Aspart 100 Units/Ml 3 Ml Pen) 0 units SC ACHS [facility] Stop: 07/28/20 07:29 Last Admin: 06/28/20 17:04 Dose: 8 units Documented by: Insulin Aspart (Insulin Aspart 100 Units/Ml 3 Ml Pen) 0 units SC 0000,0400 [facility] Stop: 06/29/20 04:01 Miscellaneous (Remove Nicoderm Patch) 1 ea N/A DAILY@0859 [facility] Stop: 07/28/20 08:58 Last Admin: 06/28/20 09:46 Dose: 1 ea Documented by: Miscellaneous Information (Pharmacy Glycemic Mgmt Consult) 1 ea N/A UD PRN PRN Reason: Consult Stop: 07/27/20 22:47 Miscellaneous Information (Dc Iv Insulin Infusion 1 Ea Franny) 1 ea N/A Q1H [facility] Stop: 07/28/20 14:59 Nicotine (Nicotine 21 Mg/24 Hr Tdsy) 21 mg TD DAILY [facility] Stop: 07/28/20 08:59 Last Admin: 06/28/20 09:46 Dose: 21 mg Documented by: Nitroglycerin (Nitroglycerin Sl 0.4 Mg/Tab Tab) 0.4 mg SL UD PRN PRN Reason: Chest Pain Stop: 07/27/20 22:33 Olanzapine (Olanzapine 2.5 Mg Tab) 2.5 mg PO BID JOAN Stop: 07/27/20 22:33 Last Admin: 06/28/20 09:47 Dose: Not Given Documented by: Ondansetron HCl (Ondansetron Inj 2 Mg/Ml 2 Ml Vial) 4 mg IV Q6H PRN PRN Reason: Nausea Stop: 07/27/20 22:33 Polyethylene Glycol (Polyethylene (Miralax) 17 Gm Pack) 17 gm PO DAILY PRN PRN Reason: Constipation Stop: 07/27/20 22:33 (1) DKA (diabetic ketoacidoses) Diabetes mellitus complication detail: without coma Diabetes mellitus type: type 1 Qualified Code(s): E10.10 - Type 1 diabetes mellitus with ketoacidosis without coma
[2020-06-28] MEDS ORDERED: POTASSIUM PHOSPHATE 30 MMOL in SODIUM CHLORIDE 0.9% 500 ML IV ONE (18:00)
[2020-06-28 18:48] LABS: Calcium 8.2 mg/dl (8.5-10.1); Creatinine Clr Calc Pharmacy 68.6 ml/min; Est GFR (African American) 96.6; Est GFR (Non-African American) 83.3; Magnesium 1.9 mg/dl (1.8-2.4); Phosphorus 1.7 mg/dl (2.5-4.9); Potassium 3.7 mmol/L (3.5-5.1)
[2020-06-28] MEDS ORDERED: MELATONIN 3 MG TAB PO PRN (23:12)
[2020-06-29] MEDS: INSULIN ASPART 100 UNITS/ML 3 ML PEN SC SCH ×3 (04:06→12:30)
[2020-06-29] MEDS: D5W AND 1/2NSS + 20MEQ KCL 20 MEQ/1,000 ML BAG IV SCH (04:07)
[2020-06-29] MEDS ORDERED: INSULIN GLARGINE SOLOSTAR 100 UNITS/ML 3 ML PEN SC SCH (07:30)
[2020-06-29] MEDS: NICOTINE 21 MG/24 HR TDSY TD SCH (08:22)
[2020-06-29] MEDS: OLANZAPINE 2.5 MG TAB PO SCH (08:24)
[2020-06-29] MEDS ORDERED: SODIUM CHLOR 0.45% + 20MEQ KCL 20 MEQ/1,000 ML BAG IV SCH (08:45)
--- NOTE | 2020-06-29 13:29 | Discharge Summary ---
Date of Service June 29, 2020 Admission HPI Per Admitting Provider This is a 39-year-old female with past medical history significant for type 1 diabetes, depression, medical marijuana, posttraumatic stress disorder. The patient has history of polysubstance abuse. Recently, she was in the hospital from 06/14/2020 to 06/16/20 for DKA and in behavioral unit from 06/16/2020 to 06/20/2020 for psychosis. At that time, she was positive for amphetamines and she adamantly refused that she was taking them and she was telling that her neighbors are sneaking in and giving drugs to her from unknown mechanism into her body and also taking her insulin from her machine. It seems as per records she has a history of multiple drug use like heroin, opiates, ecstasy, methamphetamine, cocaine, alcohol, marijuana. Today she came to the ER because of acute onset of nausea, vomiting with the blood sugars in the 500s. She told the ER physician that her Dexcom stopped working and needs a replacement. Currently, the patient is drowsy, not answering any questions. As per nursing staff, she is also doing the same thing. Could not get any history from the patient. Initial blood pressure was low, with the fluids the blood pressure came up. She was started on her insulin drip. Currently vitals are okay. Labs showed WBC of 14. Sodium of 131, potassium of 5.6, CO2 of 8, anion gap 22, glucose 533. Urinalysis +4 ketones and +3 glucose. Drug screen positive for amphetamines, marijuana. SARS-CoV-2 PCR negative. Influenza A and B and RSV PCR negative. Chest x-ray, no acute cardiopulmonary findings. EKG shows sinus tachycardia. Admission Exam Per Admitting Provider GENERAL: The patient is drowsy, opens eyes on calling. VITAL SIGNS: Temperature 37, pulse 111, respiratory rate 24, blood pressure 103/52, oxygen 97% on room air. HEENT: Atraumatic. No facial droop seen. NECK: No neck masses seen. CARDIOVASCULAR: S1, S2 regular. Somewhat tachycardia. No murmurs. RESPIRATORY SYSTEM: Normal AP diameter. No accessory muscle use. No wheezing, no crackles. ABDOMEN: Soft, bowel sounds present. Mild discomfort. No distention. CENTRAL NERVOUS SYSTEM: Currently drowsy, not answering any questions. Seems to be moving her extremities. No facial droop seen. EXTREMITIES: No edema, no erythema. Principal Diagnosis DKA Discharge Exam General: A&Ox3 HENT: NCAT, MMM, EOMI Eyes: PERRLA Neck: Supple, normal range of motion CVS: normal rate and rhythm Resp: b/l good breath sounds Abdomen: Soft, ND/NT, +BS Extremities: No c/c/e Neuro: face symmetric, no focal deficit Skin: warm and dry, no rashes/lesions/errythema Discharge Data Allergies Allergy/AdvReac Type Severity Reaction Status Date / Time niacin Allergy Severe Hives Verified 04/19/20 14:40 latex Allergy Mild Rash Verified 04/19/20 14:40 Consultations 06/27/20 19:49 ED Decision to Admit Stat Hospital Course (1) DKA (diabetic ketoacidoses): Known history of type 1 diabetes on insulin pump Patient was admitted with DKA. Started on DKA protocol discharge her anion gap was good. She did have episode of hypoglycemia prior to discharge but that was due to miscalculated dose of insulin. Patient improved with oral situation. The day of discharge patient was doing okay. Stated she was feeling much otoniel r. Hemodynamically patient was doing fine. Patient was discharged in stable condition. Patient will need to follow-up with endocrinology as an outpatient for insulin pump management. (2) Intractable nausea and vomiting: Solved prior to discharge (3) Type 1 diabetes: As above Glycemic management pharmacist is on board (4) Substance abuse: History of polysubstance abuse Urine tox screen are positive for amphetamine, marijuana and others are pending No concern for withdrawal or intoxication at the time of discharge. (5) Psychosis: No acute anxiety and/or psychosis Recent inpatient psychiatric care Stable at the time of discharge Total Time Total Time Spent Total Time Spent (In Minutes): 35 Discharge Plan Discharge Items Patient Disposition: Home - Self-Care Reason For Visit: HYPERGYCEMIA Discharge Diagnosis: DKA Activity: Resume your previous activity Non-emergency contact: Primary Care Provider Call non-emergency contact if: your symptoms worsen Follow-up/Referrals: Mynor Bragg DO [Primary Care Provider] - (Date & Time 07/01/2020 1:40 PM Provider Mynor Bragg DO Department [facility] ) Diet: Carb Consistent or DM2 Addtl Attending Provider Instructions: Follow-up with your primary care physician within 1 week. Pending Studies at Discharge: No Stand-Alone Forms: My [facility], Smoking Cessation Medications and DC Order Prescriptions: Continued insulin aspart U-100 [Novolog U-100 Insulin aspart] 100 unit/mL solution See Rx Instructions .ROUTE .COMPLEX MDD 50 units Qty: 50 RF: 0 nicotine 21 mg/24 hr patch 24 hour 1 patch transdermal DAILY RF: 0 meloxicam 15 mg tablet 15 mg PO DAILY RF: 0 olanzapine 2.5 mg Tablet 2.5 mg PO BID Qty: 60 RF: 0 Discharge Orders: Discharge Order (Routine); Ordered 06/29/20 Ordered By: Kirill Alas Admission Data Admit Date/Time: 06/27/20 21:05 Attending Provider: Kirill Alas Admit Provider: Froylan Willingham Primary Care Provider: Mynor Bragg Other Providers: Froylan Willingham
[2020-07-01 04:51] LABS: Amphetamine Urine, Confirm 719 ng/mL (<250); Marijuana Quant, GCMS Urine 13 ng/mL (<5); Methamphetamine, Ur Confirm 2300 ng/mL (<250)
== END 2020-06-29 14:44 | disposition home or self-care (01) | DRG 639 ==
LOC: ED 18:11 → 2N 21:05 → SUATTDRO 21:05 → 2N 22:13

== ENCOUNTER 2021-07-15 15:13 | Inpatient (IN) ==
--- NOTE | 2021-07-15 15:39 | Emergency Department Note ---
Impression & Plan Paranoia, Delusional ideas, Thought disorder ED Provider Note NAME: ANTONY OTTO AGE: 40 SEX: F : 1980 ARRIVES VIA: Ambulance INFORMANT: [Patient] ED PROVIDER(S): [Andrew Rosales MD] CHIEF COMPLAINT: Mental health evaluation HISTORY OF PRESENT ILLNESS: The patient is a 40-year-old female who presents to the ER at the suggestion of police. The patient was actually brought to the ER this morning for what was thought to be potential delusional thinking although, she was never evaluated fully. She was asking to leave right after she arrived. She was not homicidal or suicidal and thus she was allowed to leave before being seen. She presents back now with the same thinking. The patient has a history of paranoia and she has been hospitalized on the psych iatric floors for her delusions. The patient believes that she is an [employer] agent and she states that her job is to investigate the local police. She states that as a result, the police are angry with her and they are encouraging methamphetamine users to poison her. She describes discoloration of her skin from the poisoning. The patient states that last night, she overheard these methamphetamine users talking about killing her family. This is why she called the police earlier today. The patient states that she is still concerned for her family. She has been able to talk with her mother so she knows her mom's okay but, she has not talked to the rest of her family. She is worried for thei r safety. The patient denies being suicidal or homicidal. She has not had cough cold or congestion. She is diabetic and does monitor her sugars. The patient is currently [facility] out [facility] the [facility]. REVIEW OF SYSTEMS: See HPI for pertinent positives and negatives. A total of ten systems were reviewed and were otherwise negative. PMHx/PSHx: See Below SOCIAL HISTORY: See Below. PHYSICAL EXAM: GENERAL: Patient is in no acute distress. Slightly anxious/manic HEENT: No acute trauma, normocephalic atraumatic, mucous membranes moist, no nasal congestion, no scleral icterus. NECK: No stridor, no adenopathy, no meningismus, trachea is midline. LUNGS: Clear to auscultation bilaterally, no wheeze, no rhonchi, breath sounds equal. HEART: Without murmurs gallops or rubs, regular rate and rhythm. ABDOMEN: Soft, nontender, bowel sounds positive, no hernias, no peritonitis. EXTREMITIES: No cyanosis or edema, full range of motion of all the joints without pain or difficulty, no signs for acute trauma. NEUROLOGIC: Oriented x 3, no acute motor or sensory deficits, no focal weakness. SKIN: No rash, no jaundice, no diaphoresis. Psychiatric: Currently voluntary, slightly anxious/manic. Not suicidal. Demonstrates delusional thinking/paranoia. DIFFERENTIAL DIAGNOSIS: Mood disorder, paranoia, delusional thinking, tanya, suicidality, depression, anxiety, infection, hypoglycemia, electrolyte abnormalities, cardiac sources, intracerebral event, toxicologic etiology, trauma, neurologic event, as well as other pathologies. EMERGENCY DEPARTMENT COURSE/PROCEDURES: MEDICAL DECISION MAKING: There is no leukocytosis or worrisome anemia. There is a normal platelet count. No renal failure or significant electrolyte abnormality. No concerning liver enzyme elevation. The patient appeared to be in a euthyroid state. testing was negative. Urinalysis showed contamination, no obvious infection. Aspirin, Tylenol and alcohol levels were undetectable. Urine tox returned positive for amphetamines and marijuana. COVID testing returned negative. On exam, the patient was a bit anxious and seemed slightly manic. She demonstrated delusional thinking. The patient was not willing to come into the hospital voluntarily. She was though in need of a psychiatric hospital stay. A 302 petition was initiated and the warrant was signed. I did sign the medical portion of the 302. The patient is being hospitalized involuntarily. She is quite delusional. This has been her second visit to this ER today for similar issues. She has been hospitalized before for similar issues. The patient was seen by psychiatry case management. She has been accepted to our hospitals psychiatric floor, 3 S. The patient has been cooperative during her time while under my care. Past Med/Surg History Medical History DKA (diabetic ketoacidoses) Hx of fracture of wrist Positive urine drug screen Thought disorder Unspecified psychosis Surgical History History of surgery on left wrist 2014 Hx of section Hx of wisdom tooth extraction Family History Grandmother (Maternal) Breast cancer Grandmother (Paternal) Breast cancer Grandfather Myocardial infarction Social History Smoking Status: Current every day smoker Tobacco Type: Cigarettes Second Hand Exposure: Yes; Hx Alcohol Use: No Hx Substance Use: Yes Last Used Substance: Just Prior to Arrival Preferred Language: Turkish Communication Ability: Effective Visual Impairment: Partially Limited Hearing Ability: Normal Top Loader Required: No Beliefs That Will Affect Care: None marital status: Single Current Living Situation: Alone How many Children do You have: 2 Feels Safe at Home: Yes Assistive Devices: None Allergies Allergies Allergy/AdvReac Type Severity Reaction Status Date / Time niacin Allergy Severe Hives Verified 07/15/21 16:45 latex Allergy Mild Rash Verified 07/15/21 16:45 Home Meds Home Medications Medication Instructions Recorded Confirmed Dexcom G6 Sensor 07/15/21 07/15/21 blood-glucose meter,continuous 07/15/21 07/15/21 blood-glucose transmitter (Dexcom 07/15/21 07/15/21 G6 Transmitter) Previous Rx's Medication Instructions Recorded marijuana 1 puff INHALATION .COMPLEX #1 bag 08/10/20 Novolog U-100 Insulin aspart 100 See Rx Instructions .ROUTE 03/31/21 unit/mL subcutaneous solution .COMPLEX #20 ml NS MDD 50 units (insulin aspart U-100) Results & Data (ED) Vital Signs Vital Signs - 24 hr 07/15/21 15:23 07/15/21 18:30 07/15/21 20:00 Temperature 36.7 C 36.8 C Temperature Source Oral Oral Pulse Rate 93 H Pulse Rate [Right Finger] 93 H 93 H 97 H Respiratory Rate 20 20 18 Respiratory Effort / Characteristics Non-Labored Spontaneous Non-Labored Spontaneous Non-Labored Spontaneous Respiratory Depth Normal Normal Normal Respiratory Pattern Regular Regular Regular Blood Pressure 157/103 H Blood Pressure [Right Arm] 157/103 H 166/78 H 135/83 Blood Pressure Mean 121 Blood Pressure Mean [Right Arm] 121 107 100 Blood Pressure Position [Right Arm] Sitting Pulse Oximetry 96 96 98 Oxygen Delivery Method Room Air Room Air Room Air Sepsis Recent Fever Within 48 Hours No Sepsis New/Unexplained Change in Mental Status No Sepsis Action Taken by Nursing No Action Required Home Medications Current Medication List: was personally reviewed by me Laboratory Data Attestation: I reviewed the patient's lab results. Result diagrams: 07/15/21 15:46 07/15/21 15:46 Lab Results 07/15/21 07/15/21 07/15/21 Range/Units 15:25 15:25 15:46 WBC 7.28 (4.8-10.8) K/uL RBC 4.33 (4.2-5.4) M/uL Hgb 13.7 (12.0-16.0) g/dL Hct 38.8 (37-47) % MCV 89.6 (80-100) fL MCH 31.6 (25-34) pg MCHC 35.3 (32-36) g/dL RDW Std Deviation 47.5 H (36.4-46.3) fL RDW Coeff of Bruna 14.4 (11.5-14.5) % Plt Count 321 (130-400) K/uL MPV 9.3 (7.4-10.4) fL Immature Gran % (Auto) 0.1 % Neut % (Auto) 62.5 % Lymph % (Auto) 29.0 % Montgomery % (Auto) 7.0 % Eos % (Auto) 1.1 % Baso % (Auto) 0.3 % Neut # (Auto) 4.55 (1.4-6.5) K/uL Lymph # (Auto) 2.11 (1.2-3.4) K/uL Montgomery # (Auto) 0.51 (0.11-0.59) K/uL Eos # (Auto) 0.08 (0-0.5) K/uL Baso # (Auto) 0.02 (0-0.2) K/uL Immature Gran # (Auto) 0.01 (0.00-0.02) K/uL Sodium (136-145) mmol/L Potassium (3.5-5.1) mmol/L Chloride (98-107) mmol/L Carbon Dioxide (21-32) mmol/L Anion Gap (3-11) BUN (6-23) mg/dl Creatinine (0.6-1.2) mg/dl Est Cr Clr Drug Dosing ml/min Est GFR ( Amer) ml/min Est GFR (Non-Af Amer) ml/min BUN/Creatinine Ratio (10-20) Glucose (70-99(Fasting)) mg/dl Calcium (8.5-10.1) mg/dl Total Bilirubin (0.2-1.0) mg/dl AST (13-39) U/L ALT (7-52) U/L Alkaline Phosphatase (34-104) U/L Total Protein (6.0-8.3) gm/dl Albumin (3.4-5.0) gm/dl Globulin (2.5-4.0) gm/dl Albumin/Globulin Ratio (0.9-2) TSH (0.300-4.500) uIu/ml HCG, Qual (Negative) Urine Color Dark Yellow Urine Appearance Cloudy A (Clear) Urine pH 6.5 (4.5-7.5) Ur Specific [place] 1.023 (1.000-1.030) Urine Protein 1+ H (Negative) Urine Glucose (UA) 1+ H (Negative) Urine Ketones Trace H (Negative) Urine Blood 3+ H (Negative) Urine Nitrite Negative (Negative) Urine Bilirubin Negative (Negative) Urine Urobilinogen Negative (Negative) Ur Leukocyte Esterase Trace H (Negative) Urine WBC (Auto) 5-10 H (0-5) /hpf Urine RBC (Auto) >30 H (0-4) /hpf U Hyaline Cast (Auto) 1-5 (0-5) /lpf U Epithel Cells (Auto) >30 H (0-5) /lpf Urine Bacteria (Auto) 1+ H (Negative) Salicylates (3.0-30) mg/dl Urine Opiates Screen Neg (Neg) Ur Methadone, Qual Neg (Neg) Acetaminophen (10-30) ug/ml Urine Barbiturates Neg (Neg) Ur Phencyclidine (PCP) Neg (Neg) U Amphetamin/Meth Scrn Pos H (Neg) MDMA (Ecstasy) Screen Neg (Neg) U Benzodiazepines Scrn Neg (Neg) Ur Cocaine Metabolite Neg (Neg) U Marijuana (THC) Screen Pos H (Neg) Ethyl Alcohol mg/dL (<10.0) mg/dl SARS-CoV-2, RNA, NAAT (NEGATIVE) 07/15/21 07/15/21 07/15/21 Range/Units 15:46 15:46 15:46 WBC (4.8-10.8) K/uL RBC (4.2-5.4) M/uL Hgb (12.0-16.0) g/dL Hct (37-47) % MCV (80-100) fL MCH (25-34) pg MCHC (32-36) g/dL RDW Std Deviation (36.4-46.3) fL RDW Coeff of Bruna (11.5-14.5) % Plt Count (130-400) K/uL MPV (7.4-10.4) fL Immature Gran % (Auto) % Neut % (Auto) % Lymph % (Auto) % Montgomery % (Auto) % Eos % (Auto) % Baso % (Auto) % Neut # (Auto) (1.4-6.5) K/uL Lymph # (Auto) (1.2-3.4) K/uL Montgomery # (Auto) (0.11-0.59) K/uL Eos # (Auto) (0-0.5) K/uL Baso # (Auto) (0-0.2) K/uL Immature Gran # (Auto) (0.00-0.02) K/uL Sodium 136 (136-145) mmol/L Potassium 3.8 (3.5-5.1) mmol/L Chloride 102 (98-107) mmol/L Carbon Dioxide 28 (21-32) mmol/L Anion Gap 6 (3-11) BUN 9 (6-23) mg/dl Creatinine 0.74 (0.6-1.2) mg/dl Est Cr Clr Drug Dosing 77.0 ml/min Est GFR ( Amer) 118.3 ml/min Est GFR (Non-Af Amer) 102.1 ml/min BUN/Creatinine Ratio 12.2 (10-20) Glucose 120 H (70-99(Fasting)) mg/dl Calcium 9.6 (8.5-10.1) mg/dl Total Bilirubin 1.0 (0.2-1.0) mg/dl AST 41 H (13-39) U/L ALT 45 (7-52) U/L Alkaline Phosphatase 74 (34-104) U/L Total Protein 7.7 (6.0-8.3) gm/dl Albumin 4.3 (3.4-5.0) gm/dl Globulin 3.4 (2.5-4.0) gm/dl Albumin/Globulin Ratio 1.3 (0.9-2) TSH 0.767 (0.300-4.500) uIu/ml HCG, Qual (Negative) Urine Color Urine Appearance (Clear) Urine pH (4.5-7.5) Ur Specific [place] (1.000-1.030) Urine Protein (Negative) Urine Glucose (UA) (Negative) Urine Ketones (Negative) Urine Blood (Negative) Urine Nitrite (Negative) Urine Bilirubin (Negative) Urine Urobilinogen (Negative) Ur Leukocyte Esterase (Negative) Urine WBC (Auto) (0-5) /hpf Urine RBC (Auto) (0-4) /hpf U Hyaline Cast (Auto) (0-5) /lpf U Epithel Cells (Auto) (0-5) /lpf Urine Bacteria (Auto) (Negative) Salicylates < 3.0 L (3.0-30) mg/dl Urine Opiates Screen (Neg) Ur Methadone, Qual (Neg) Acetaminophen < 3 L (10-30) ug/ml Urine Barbiturates (Neg) Ur Phencyclidine (PCP) (Neg) U Amphetamin/Meth Scrn (Neg) MDMA (Ecstasy) Screen (Neg) U Benzodiazepines Scrn (Neg) Ur Cocaine Metabolite (Neg) U Marijuana (THC) Screen (Neg) Ethyl Alcohol mg/dL (<10.0) mg/dl SARS-CoV-2, RNA, NAAT (NEGATIVE) 07/15/21 07/15/21 07/15/21 Range/Units 15:46 15:46 15:52 WBC (4.8-10.8) K/uL RBC (4.2-5.4) M/uL Hgb (12.0-16.0) g/dL Hct (37-47) % MCV (80-100) fL MCH (25-34) pg MCHC (32-36) g/dL RDW Std Deviation (36.4-46.3) fL RDW Coeff of Bruna (11.5-14.5) % Plt Count (130-400) K/uL MPV (7.4-10.4) fL Immature Gran % (Auto) % Neut % (Auto) % Lymph % (Auto) % Montgomery % (Auto) % Eos % (Auto) % Baso % (Auto) % Neut # (Auto) (1.4-6.5) K/uL Lymph # (Auto) (1.2-3.4) K/uL [place] # (Auto) (0.11-0.59) K/uL Eos # (Auto) (0-0.5) K/uL Baso # (Auto) (0-0.2) K/uL Immature Gran # (Auto) (0.00-0.02) K/uL Sodium (136-145) mmol/L Potassium (3.5-5.1) mmol/L Chloride (98-107) mmol/L Carbon Dioxide (21-32) mmol/L Anion Gap (3-11) BUN (6-23) mg/dl Creatinine (0.6-1.2) mg/dl Est Cr Clr Drug Dosing ml/min Est GFR ( Amer) ml/min Est GFR (Non-Af Amer) ml/min BUN/Creatinine Ratio (10-20) Glucose (70-99(Fasting)) mg/dl Calcium (8.5-10.1) mg/dl Total Bilirubin (0.2-1.0) mg/dl AST (13-39) U/L ALT (7-52) U/L Alkaline Phosphatase (34-104) U/L Total Protein (6.0-8.3) gm/dl Albumin (3.4-5.0) gm/dl Globulin (2.5-4.0) gm/dl Albumin/Globulin Ratio (0.9-2) TSH (0.300-4.500) uIu/ml HCG, Qual Negative (Negative) Urine Color Urine Appearance (Clear) Urine pH (4.5-7.5) Ur Specific [place] (1.000-1.030) Urine Protein (Negative) Urine Glucose (UA) (Negative) Urine Ketones (Negative) Urine Blood (Negative) Urine Nitrite (Negative) Urine Bilirubin (Negative) Urine Urobilinogen (Negative) Ur Leukocyte Esterase (Negative) Urine WBC (Auto) (0-5) /hpf Urine RBC (Auto) (0-4) /hpf U Hyaline Cast (Auto) (0-5) /lpf U Epithel Cells (Auto) (0-5) /lpf Urine Bacteria (Auto) (Negative) Salicylates (3.0-30) mg/dl Urine Opiates Screen (Neg) Ur Methadone, Qual (Neg) Acetaminophen (10-30) ug/ml Urine Barbiturates (Neg) Ur Phencyclidine (PCP) (Neg) U Amphetamin/Meth Scrn (Neg) MDMA (Ecstasy) Screen (Neg) U Benzodiazepines Scrn (Neg) Ur Cocaine Metabolite (Neg) U Marijuana (THC) Screen (Neg) Ethyl Alcohol mg/dL < 10.0 (<10.0) mg/dl SARS-CoV-2, RNA, NAAT NEGATIVE (NEGATIVE) Discharge Plan Visit Data Chief Complaint: Mental Health Evaluation ED Provider: Andrew Rosales Discharge Problem: Paranoia, Delusional ideas, Thought disorder Patient Disposition: Admitted As Inpatient Condition: Good Forms Stand Alone Forms: My [facility], Suicide Prevention Resources Prescriptions Prescriptions: No Action insulin aspart U-100 [Novolog U-100 Insulin aspart] 100 unit/mL solution See Rx Instructions .ROUTE .COMPLEX MDD 50 units Qty: 20 RF: 0 marijuana 1 puff inhalation .COMPLEX Qty: 1 RF: 0 (DME) Dexcom G6 Transmitter Device MISCELLANEOUS RF: 0 (DME) Dexcom Psychologist Educational Misc MISCELLANEOUS RF: 0 (DME) Dexcom G6 Sensor RF: 0 Referrals Referrals: Mynor Bragg DO [Primary Care Provider] -
[2021-07-15 15:51] LABS: Appearance Urine Cloudy (Clear); Bacteria Urine Automated 1+ (Negative); Bilirubin Urine Negative (Negative); Blood Urine 3+ (Negative); Color Urine Dark Yellow; Epithelial Cell Urine Auto >30 /lpf (0-5); Glucose Urine UA 1+ (Negative); Ketones Urine Trace (Negative); Leukocyte Esterase Urine Trace (Negative); Nitrite Urine Negative (Negative); Protein Urine 1+ (Negative); RBC Urine Automated >30 /hpf (0-4); Specific Gravity Urine 1.023 (1.000-1.030); Urobilinogen Urine Negative (Negative); pH Urine 6.5 (4.5-7.5)
[2021-07-15 16:15] LABS: Basophils # (auto) 0.02 K/uL (0-0.2); Basophils % (auto) 0.3 %; Eosinophils # (auto) 0.08 K/uL (0-0.5); Eosinophils % (auto) 1.1 %; Hematocrit (blood only) 38.8 % (37-47); Hemoglobin 13.7 g/dL (12.0-16.0); Immature Granulocytes # (auto) 0.01 K/uL (0.00-0.02); Immature Granulocytes % (auto) 0.1 %; Lymphocytes # (auto) 2.11 K/uL (1.2-3.4); Mean Corpuscular Hemoglobin 31.6 pg (25-34); Mean Corpuscular Hgb Conc 35.3 g/dL (32-36); Mean Corpuscular Volume 89.6 fL (80-100); Mean Platelet Volume 9.3 fL (7.4-10.4); Monocytes # (auto) 0.51 K/uL (0.11-0.59); Neutrophils # (auto) 4.55 K/uL (1.4-6.5); Neutrophils % (auto) 62.5 %; Platelet Count 321 K/uL (130-400); RDW Coefficient of Variation 14.4 % (11.5-14.5); RDW Standard Deviation 47.5 fL (36.4-46.3); Red Blood Count 4.33 M/uL (4.2-5.4); White Blood Count 7.28 K/uL (4.8-10.8)
[2021-07-15 16:25] LABS: Pregnancy Test, Serum Negative (Negative)
[2021-07-15 16:39] LABS: Amphetamines+Metham, Urine Pos (Neg); Barbiturates, Urine Neg (Neg); Benzodiazepine, Urine Neg (Neg); Cocaine, Urine Neg (Neg); MDMA (Ecstacy), Urine Neg (Neg); Methadone, Urine Neg (Neg); Opiate, Urine Neg (Neg); Phencyclidine, Urine Neg (Neg)
[2021-07-15 16:42] LABS: Acetaminophen < 3 ug/ml (10-30); Albumin Globulin Ratio 1.3 (0.9-2); Albumin Level 4.3 gm/dl (3.4-5.0); BUN Creatinine Ratio 12.2 (10-20); Calcium 9.6 mg/dl (8.5-10.1); Est GFR (African American) 118.3 ml/min; Est GFR (Non-African American) 102.1 ml/min; Globulin 3.4 gm/dl (2.5-4.0); Potassium 3.8 mmol/L (3.5-5.1); Salicylate < 3.0 mg/dl (3.0-30); Total Protein 7.7 gm/dl (6.0-8.3)
[2021-07-15] MEDS ORDERED: PHARMACY GLYCEMIC MGMT CONSULT PRN (21:10)
[2021-07-15] MEDS ORDERED: ACETAMINOPHEN 325 MG TAB PO PRN (21:15)
[2021-07-15] MEDS ORDERED: MAGNESIUM HYDROXIDE SUSP 30 ML UDC PO PRN (21:15)
[2021-07-15] MEDS ORDERED: hydrOXYzine HCl 25 MG TAB PO PRN ×2 (21:15)
[2021-07-15] MEDS ORDERED: BISMUTH SUBSALICYLATE LIQD 236 ML PO PRN (21:15)
[2021-07-15] MEDS ORDERED: SODIUM CHLORIDE 0.65% NA SOLN 45 ML (OCEAN) PRN (21:15)
[2021-07-15] MEDS ORDERED: ALUMINUM/MAGNESIUM SUSP 30 ML UDC PO PRN (21:15)
[2021-07-15] MEDS ORDERED: haloperidoL 5 MG TAB PO PRN (21:20)
[2021-07-15] MEDS ORDERED: INSULIN GLARGINE SOLOSTAR 100 UNITS/ML 3 ML PEN SC STA (22:12)
[2021-07-15] MEDS ORDERED: GLUCOSE 40% GEL 15 GM TUBE PO PRN (22:15)
[2021-07-15] MEDS ORDERED: GLUCOSE 10 TABS/TUBE PO PRN (22:15)
[2021-07-15] MEDS ORDERED: DEXTROSE 50% 50 ML SYRINGE IV PRN (22:15)
[2021-07-15] MEDS ORDERED: GLUCAGON FOR INJ 1 MG VIAL SQ PRN (22:15)
[2021-07-15] MEDS ORDERED: CARBOHYDRATES FOR HYPOGLYCEMIA PO PRN (22:15)
[2021-07-16] MEDS: INSULIN ASPART PER UNIT SC SCH ×5 (03:21→21:04)
[2021-07-16] MEDS ORDERED: INSULIN ASPART PER UNIT SC ONE (05:30)
--- NOTE | 2021-07-16 10:27 | Pharmacy Report ---
Pharmacy Glycemic Short Note 2 - Date of Service July 16, 2021 - Glycemic Short BSG Results (Last 24 hours): 07/15/21 07/15/21 07/15/21 15:46 22:05 23:30 Glucose 120 H POC Glucose 67 L* 44 L* 07/16/21 07/16/21 07/16/21 00:05 02:42 02:51 Glucose POC Glucose 252 H 571 H* > 600 H* 07/16/21 07/16/21 07/16/21 05:36 05:54 09:09 Glucose POC Glucose 299 H 288 H 28 L* 07/16/21 07/16/21 09:28 10:04 Glucose POC Glucose 37 L* 190 H OUTPATIENT ANTIDIABETIC REGIMEN: * Novolog insulin pump per med list - 17.5 units total/day basal, CR 1:10 * Per 08/10/20 DM clinic note - 0.65 units/hr, CF 50 ASSESSMENT: * 40 year old, type 1 DM admitted into [facility]. Per protocol insulin pump taken off last evening ~2200. BSGs lower 67 mg/dL. Basal insulin had been held for lower BSG at this time. * BSGs trending up quickly overnight, Lantus 15 units given at midnight. It was passed along that patient was eating overnight. * Received 15 units of novolog at 0300 this AM as BSG >500 and then another 5 units at 0600 for BSG of 288 mg/dL - recheck at 0900 was very low at 28 mg/dL. RN gave 2 orange juices. I advised RN to let patient eat (~60 gm CHO) and we will hold carb coverage for now. Recheck 190 mg/dL * Patient appears to be very labile with blood sugars. Feel that lower BSG this AM related to stacking of insulin doses. * Plan to loosen CF/CR with lunch. Lunch BSG elevated at 405 mg/dL. Per RN, patient done eating breakfast a little after the 190 mg/dL blood sugar drawn. Confirmed this was taken before eating lunch. No repeat BSG to confirm value. * Will plan to recheck again in 2 hours after insulin given. PLAN FOR INPATIENT GLYCEMIC CONTROL: * Hold outpatient oral diabetes medications * Basal insulin * Lantus 15 units * Bolus insulin * NovoLog per scale ACHS or Q6hrs while NPO * Goal Range: Low 120 mg/dL - High 160 mg/dL * Correction Factor: 45 mg/dL/unit * Nutritional / Prandial insulin per carb ratio of 1 unit per 15 grams CHO consumed
[2021-07-16] MEDS ORDERED: NICOTINE POLACRILEX 2 MG GUM MT PRN (10:58)
[2021-07-16] MEDS ORDERED: busPIRone 5 MG TAB PO PRN (10:58)
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
[2021-07-16] MEDS: NICOTINE 21 MG/24 HR TDSY TD SCH (12:45)
--- NOTE | 2021-07-16 14:19 | Communication Note ---
Date of Service: July 16, 2021 case reviewed with glycemic pharmacist and [facility] given lability of gluc checks, patient compliant so far without evidence of AMS or phy sical symptoms. Hx of labile blood sugars in previous hospitalizations. No anion gap but will repeat BMP. Dr. Rausch suggested a beta-hydroxybutyrate prior to formal consult. No immediate need for insulin drip but will monitor closely.
[2021-07-16 15:23] LABS: BUN Creatinine Ratio 15.4 (10-20); Calcium 9.2 mg/dl (8.5-10.1); Creatinine Clr Calc Pharmacy 65.6 ml/min; Est GFR (African American) 92.1 ml/min; Est GFR (Non-African American) 79.5 ml/min; Potassium 4.1 mmol/L (3.5-5.1)
[2021-07-16] MEDS ORDERED: INSULIN GLARGINE SOLOSTAR 100 UNITS/ML 3 ML PEN SC SCH (22:00)
[2021-07-17 07:26] LABS: BUN Creatinine Ratio 20.3 (10-20); Calcium 8.8 mg/dl (8.5-10.1); Creatinine Clr Calc Pharmacy 80.7 ml/min; Est GFR (African American) 118.3 ml/min; Est GFR (Non-African American) 102.1 ml/min; Potassium 3.7 mmol/L (3.5-5.1)
[2021-07-17] MEDS: INSULIN ASPART PER UNIT SC SCH ×2 (09:05→12:31)
[2021-07-17] MEDS: NICOTINE 21 MG/24 HR TDSY TD SCH (10:30)
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
--- NOTE | 2021-07-17 13:27 | Pharmacy Report ---
Pharmacy Glycemic Short Note 2 - Date of Service July 17, 2021 - Glycemic Short BSG Results (Last 24 hours): 07/16/21 07/16/21 07/16/21 14:19 15:19 15:24 Glucose 421 H* POC Glucose 361 H* 345 H* 07/16/21 07/16/21 07/17/21 16:50 20:47 06:44 Glucose POC Glucose 293 H 223 H 120 H 07/17/21 07/17/21 07/17/21 06:51 07:59 11:48 Glucose 100 H POC Glucose 83 45 L* 07/17/21 12:05 Glucose POC Glucose 66 L* OUTPATIENT ANTIDIABETIC REGIMEN: * Novolog insulin pump per med list - 17.5 units total/day basal, CR 1:10 * Per 08/10/20 DM clinic note - 0.65 units/hr, CF 50 ASSESSMENT: 07/17 * Fasting this morning 83 mg/dL, can consider reduction in basal dose if patient here this evening, patients home basal ~18.5 units, patient preferred dose of 25 units as this was her dose prior to insulin pump (per colleagues conversation with pt). * Lunch BSG 45 mg/dL, will loosen carb ratio to 12 units * Discussed with Dr. Celestin, plan for patient to be discharged, can resume omnipod this evening ~1-2 hours prior to 2100 (when lantus was given), would need to restart by 2100. Can utilize insulin pen for meal coverage until that time or can restart omnipod with basal suspended until same time and utilize pod to bolus for food. * Will need outpatient followup BSGs appear to be very labile 07/16 * 40 year old, type 1 DM admitted into [facility]. Per protocol insulin pump taken off last evening ~2200. BSGs lower 67 mg/dL. Basal insulin had been held for lower BSG at this time. * BSGs trending up quickly overnight, Lantus 15 units given at midnight. It was passed along that patient was eating overnight. * Received 15 units of novolog at 0300 this AM as BSG >500 and then another 5 units at 0600 for BSG of 288 mg/dL - recheck at 0900 was very low at 28 mg/dL. RN gave 2 orange juices. I advised RN to let patient eat (~60 gm CHO) and we will hold carb coverage for now. Recheck 190 mg/dL * Patient appears to be very labile with blood sugars. Feel that lower BSG this AM related to stacking of insulin doses. * Plan to loosen CF/CR with lunch. Lunch BSG elevated at 405 mg/dL. Per RN, patient done eating breakfast a little after the 190 mg/dL blood sugar drawn. Confirmed this was taken before eating lunch. No repeat BSG to confirm value. * Will plan to recheck again in 2 hours after insulin given. PLAN FOR INPATIENT GLYCEMIC CONTROL: * Hold outpatient oral diabetes medications * Basal insulin * Lantus 25 units * Bolus insulin * NovoLog per scale ACHS or Q6hrs while NPO * Goal Range: Low 120 mg/dL - High 160 mg/dL * Correction Factor: 50 mg/dL/unit * Nutritional / Prandial insulin per carb ratio of 1 unit per 12 grams CHO consumed
[2021-07-20 01:40] LABS: Amphetamine Urine, Confirm 1040 ng/mL (<250); Marijuana Quant, GCMS Urine 877 ng/mL (<5); Methamphetamine, Ur Confirm 3590 ng/mL (<250)
== END 2021-07-17 13:00 | DRG 897 ==
LOC: ED 15:13 → 3S 23:08

== ENCOUNTER 2023-02-24 08:20 | Inpatient (IN) ==
[2023-02-24] MEDS ORDERED: ONDANSETRON INJ 2 MG/ML 2 ML VIAL IV STA (09:19)
[2023-02-24] MEDS ORDERED: FAMOTIDINE 20MG IV PUSH 20 MG/5 ML SYR IV STA (09:19)
[2023-02-24] MEDS: SODIUM CHLORIDE 0.9% 1,000 ML IV SCH ×3 (09:32→20:21)
[2023-02-24 09:38] LABS: Basophils # (auto) 0.05 K/uL (0.00-0.20); Basophils % (auto) 0.4 %; Eosinophils # (auto) 0.01 K/uL (0.00-0.50); Eosinophils % (auto) 0.1 %; Hemoglobin 13.8 g/dl (12.0-16.0); Immature Granulocytes # (auto) 0.06 K/uL (0.01-0.20); Immature Granulocytes % (auto) 0.5 %; Lymphocytes # (auto) 0.86 K/uL (1.20-3.40); Lymphocytes % (auto) 7.1 %; Mean Corpuscular Hemoglobin 30.7 pg (25.0-34.0); Mean Corpuscular Hgb Conc 33.7 g/dL (32.0-36.0); Mean Corpuscular Volume 91.3 fL (80.0-100.0); Mean Platelet Volume 10.1 fL (9.4-12.4); Monocytes # (auto) 0.37 K/uL (0.11-0.59); Monocytes % (auto) 3.1 %; Neutrophils # (auto) 10.68 K/uL (1.40-6.50); Neutrophils % (auto) 88.8 %; Platelet Count 279 K/uL (130-400); RDW Coefficient of Variation 13.3 % (11.5-14.5); RDW Standard Deviation 44.9 fL (36.4-46.3); Red Blood Count 4.49 M/uL (4.20-5.40); White Blood Count 12.03 K/ul (4.8-10.8)
[2023-02-24 09:52] LABS: iSTAT Creatinine 0.7 mg/dl (0.6-1.3); iSTAT Hemoglobin 13.9 g/dl (12.0-16.0); iSTAT Ionized Calcium 1.16 mmol/l (1.12-1.32); iSTAT Potassium 4.8 mmol/L (3.3-5.0)
[2023-02-24 09:55] LABS: Appearance Urine Turbid (Clear); Bilirubin Urine Negative (Negative); Blood Urine 3+ (Negative); Color Urine Red; Glucose Urine UA 2+ (Negative); Ketones Urine 4+ (Negative); Leukocyte Esterase Urine Negative (Negative); Nitrite Urine Negative (Negative); Protein Urine 3+ (Negative); Urobilinogen Urine Negative (Negative); pH Urine 5.5 (4.5-7.5)
[2023-02-24 09:55] LABS: Pregnancy Test, Serum Negative (Negative)
[2023-02-24 10:03] LABS: Acetaminophen < 3 ug/ml (10-30); Salicylate < 3.0 mg/dl (3.0-30)
[2023-02-24 10:07] LABS: Bacteria Urine 1+ (Negative); Epithelial Cell Urine 0-5 /lpf (0-5); RBC Urine >30 /hpf (0-4); WBC Urine >30 /hpf (0-5)
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
[2023-02-24 10:13] LABS: Amphetamines+Metham, Urine Pos (Neg); Barbiturates, Urine Neg (Neg); Benzodiazepine, Urine Neg (Neg); Cocaine, Urine Neg (Neg); MDMA (Ecstacy), Urine Neg (Neg); Marijuana, Urine Pos (Neg); Methadone, Urine Neg (Neg); Opiate, Urine Neg (Neg); Phencyclidine, Urine Neg (Neg)
[2023-02-24 10:14] LABS: Alanine Aminotransferase 56 U/L (7-52); Albumin Globulin Ratio 1.3 (0.9-2); Albumin Level 4.3 gm/dl (3.4-5.0); Alkaline Phosphatase 73 U/L (34-104); Anion Gap 21 (3-11); Aspartate Aminotransferase 43 U/L (13-39); BUN Creatinine Ratio 27.1 (10-20); Bilirubin,Total 1.6 mg/dl (0.2-1.0); Blood Urea Nitrogen 23 mg/dl (6-23); Calcium 9.9 mg/dl (8.6-10.3); Carbon Dioxide 16 mmol/L (21-32); Chloride 96 mmol/L (98-107); Creatinine Clr Calc Pharmacy 65.7 ml/min; Est GFR (African American) 98.6 ml/min; Est GFR (Non-African American) 85.1 ml/min; Globulin 3.3 gm/dl (2.5-4.0); Glucose 503 mg/dl (70-99(Fasting)); Lipase < 3 U/L (11-82); Potassium 4.7 mmol/L (3.5-5.1); Sodium 133 mmol/L (136-145); Total Protein 7.6 gm/dl (6.0-8.3); Troponin I High Sensitivity 4.2 pg/ml (0-14)
[2023-02-24 10:52] LABS: Adenovirus PCR Not Detected (NotDetected); Bordetella parapertussis PCR Not Detected (NotDetected); Bordetella pertussis PCR Not Detected (NotDetected); Chlamydia pneumoniae PCR Not Detected (NotDetected); Coronavirus 229E PCR Not Detected (NotDetected); Coronavirus CoV-2 (COVID19)PCR Not Detected (NotDetected); Coronavirus HKU1 PCR Not Detected (NotDetected); Coronavirus NL63 PCR Not Detected (NotDetected); Coronavirus OC43PCR Not Detected (NotDetected); Human Metapneumovirus PCR Not Detected (NotDetected); Influenza A PCR Not Detected (NotDetected); Influenza B PCR Not Detected (NotDetected); Mycoplasma pneumoniae PCR Not Detected (NotDetected); Parainfluenza Virus 1 PCR Not Detected (NotDetected); Parainfluenza Virus 2 PCR Not Detected (NotDetected); Parainfluenza Virus 3 PCR Not Detected (NotDetected); Parainfluenza Virus 4 PCR Not Detected (NotDetected); Respiratory Syncytial VirusPCR Not Detected (NotDetected); Rhinovirus/Enterovirus PCR Not Detected (NotDetected)
[2023-02-24 11:00] LABS: Base Excess VBG -12.8 mEq/L; HCO3 VBG 13 mmol/L; Oxygen Saturation VBG < 60.0 %; PCO2 VBG 31 mmHg (38-50); PO2 VBG 38 mmHg; pH VBG 7.24 (7.36-7.41)
[2023-02-24] MEDS ORDERED: cefTRIAXone SODIUM 2,000 MG/50 ML BAG IV STA (11:11)
[2023-02-24] MEDS ORDERED: STAT IV Infusion **Titration per Protocol STA (11:22)
[2023-02-24] MEDS ORDERED: DKA GOAL RANGE 150-250 mg/dl ONE (11:22)
[2023-02-24] MEDS ORDERED: OPTIRAY 320 500ml IV ONE (11:28)
[2023-02-24] MEDS ORDERED: INSULIN REGULAR 250 UNITS in SODIUM CHLORIDE 0.9% 247.5 ML IV SCH (11:30)
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
[2023-02-24] MEDS ORDERED: NovoLIN-R BOLUS FROM BAG IV ONE (11:45)
[2023-02-24] MEDS: SODIUM CHLOR 0.45% + 20MEQ KCL 20 MEQ/1,000 ML BAG IV SCH ×2 (12:10→17:27)
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
[2023-02-24] MEDS ORDERED: ACETAMINOPHEN 325 MG TAB PO PRN (16:02)
[2023-02-24] MEDS ORDERED: PHARMACY GLYCEMIC MGMT CONSULT PRN (16:02)
[2023-02-24] MEDS ORDERED: POLYETHYLENE (MIRALAX) 17 GM PACK PO PRN (16:02)
--- NOTE | 2023-02-24 16:03 | Ultrasound Report ---
ULTRASOUND RIGHT LOWER EXTREMITY VENOUS CLINICAL HISTORY: Possible deep venous thrombosis seen by CT. COMPARISON STUDY: Bilateral lower extremity venous ultrasound dated 11/03/2010. Pelvic CT dated 2022. TECHNIQUE: Real-time, grayscale, and color Doppler sonography of the deep veins of the right lower ex tremity was performed from the inguinal crease to the calf. Compression and augmentation were utilize d. FINDINGS: There is no sonographic evidence of deep venous thrombosis identified in the right lower ex tremity. The common femoral, superficial femoral, and popliteal veins are patent and normally akil sible. The greater saphenous vein and the profunda femoris vein at the junction with the common femor al vein are clear. The visualized calf veins are patent. IMPRESSION: There is no sonographic evidence of deep venous thrombosis identified in the right lower extremity. ACT 112: Negative or not required by law. Electronically signed by: Andrew Pedersen M.D. 02/24/2023 4:02 PM
[2023-02-24] MEDS ORDERED: GLUCOSE 10 TAB/TUBE PO PRN (16:15)
[2023-02-24] MEDS ORDERED: CARBOHYDRATES FOR HYPOGLYCEMIA PO PRN (16:15)
[2023-02-24] MEDS ORDERED: GLUCAGON FOR INJ 1 MG VIAL IM PRN (16:15)
[2023-02-24] MEDS ORDERED: GLUCOSE 40% GEL 15 GM TUBE PO PRN (16:15)
[2023-02-24] MEDS ORDERED: POTASSIUM CHLORIDE 20 MEQ in D5W AND 1/2NSS 1,000 ML IV SCH (16:15)
[2023-02-24] MEDS ORDERED: DEXTROSE 50% 50 ML SYRINGE IV PRN (16:15)
[2023-02-24] MEDS ORDERED: D5W AND 1/2NSS + 20MEQ KCL 20 MEQ/1,000 ML BAG IV SCH (16:30)
[2023-02-24] MEDS: INSULIN ASPART PER UNIT CHARGE SC SCH ×5 (17:17→22:43)
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
[2023-02-24 19:21] LABS: Calcium 8.1 mg/dl (8.6-10.3); Magnesium 1.9 mg/dl (1.7-2.4); Potassium 4.3 mmol/L (3.5-5.1)
[2023-02-24 19:27] LABS: BUN Creatinine Ratio 25.7 (10-20); Creatinine Clr Calc Pharmacy 79.8 ml/min; Est GFR (African American) 124.7 ml/min; Est GFR (Non-African American) 107.6 ml/min; Phosphorus 3.3 mg/dl (2.5-4.9)
[2023-02-24] MEDS: ENOXAPARIN INJ 40 MG/0.4 ML SYR SQ SCH (20:07)
[2023-02-24] MEDS ORDERED: DC IV INSULIN INFUSION 1 EA DEVI ONE (20:10)
[2023-02-24] MEDS ORDERED: LANTUS PER UNIT CHARGE SQ ONE (20:15)
[2023-02-24 20:45] LABS: BUN Creatinine Ratio 23.9 (10-20); Calcium 8.2 mg/dl (8.6-10.3); Creatinine Clr Calc Pharmacy 83.4 ml/min; Est GFR (African American) 126.5 ml/min; Est GFR (Non-African American) 109.2 ml/min; Magnesium 1.8 mg/dl (1.7-2.4); Phosphorus 2.8 mg/dl (2.5-4.9); Potassium 3.8 mmol/L (3.5-5.1)
[2023-02-24] MEDS ORDERED: INSULIN ASPART PER UNIT CHARGE SC SCH (21:00)
[2023-02-25] MEDS: INSULIN ASPART PER UNIT CHARGE SC SCH ×5 (00:18→16:56)
[2023-02-25 06:37] LABS: Hematocrit (blood only) 32.9 % (37.0-47.0); Hemoglobin 11.5 g/dl (12.0-16.0); Mean Corpuscular Hemoglobin 31.1 pg (25.0-34.0); Mean Corpuscular Volume 88.9 fL (80.0-100.0); Platelet Count 241 K/uL (130-400); RDW Coefficient of Variation 13.6 % (11.5-14.5); RDW Standard Deviation 44.4 fL (36.4-46.3); White Blood Count 7.18 K/ul (4.8-10.8)
[2023-02-25 07:06] LABS: BUN Creatinine Ratio 26.9 (10-20); Chol HDL Ratio 2.7 (0-5); Creatinine Clr Calc Pharmacy 90.2 ml/min; Est GFR (African American) 126.5 ml/min; Est GFR (Non-African American) 109.2 ml/min; Magnesium 1.8 mg/dl (1.7-2.4); Phosphorus 3.5 mg/dl (2.5-4.9); Potassium 3.6 mmol/L (3.5-5.1)
[2023-02-25 07:37] LABS: Estimated Average Glucose 192 mg/dl; Hemoglobin A1C 8.3 % (4.5-5.6)
[2023-02-25] MEDS: SODIUM CHLORIDE 0.9% 1,000 ML IV SCH (08:16)
[2023-02-25] MEDS: PANTOprazole 40 MG TAB PO SCH (08:33)
[2023-02-25] MEDS: cefTRIAXone SODIUM 2,000 MG in DEXTROSE 5 % MINI-B 50 ML IV SCH (11:48)
--- NOTE | 2023-02-25 12:33 | Pharmacy Report ---
Pharmacy Glycemic Short Note 2 - Date of Service February 25, 2023 - Glycemic Short BSG Results (Last 24 hours): 02/24/23 02/24/23 02/24/23 13:12 14:15 15:11 Glucose POC Glucose 344 H* 259 H 196 H 02/24/23 02/24/23 02/24/23 16:12 16:30 16:50 Glucose POC Glucose 146 H 102 H 177 H 02/24/23 02/24/23 02/24/23 17:09 17:50 18:50 Glucose 184 H POC Glucose 163 H 144 H 02/24/23 02/24/23 02/24/23 19:54 20:04 20:06 Glucose 108 H POC Glucose 114 H 113 H 02/24/23 02/25/23 02/25/23 21:01 00:08 03:49 Glucose POC Glucose 129 H 199 H 150 H 02/25/23 02/25/23 02/25/23 05:47 07:02 11:19 Glucose 119 H POC Glucose 119 H 136 H OUTPATIENT ANTIDIABETIC REGIMEN: * Novolog OmniPod pump - unsure of dosing * Per most recent endocrinology visit note on 12/03/22: basal rate of 0.65 units/hr (15.6 units/day), correction factor 50, carb ratio 13 * HbA1c: 8.3% (02/25/23) ASSESSMENT: * 42 yo F admitted on 02/24/23 secondary to DKA. Pharmacy has been consulted to assist with inpatient glycemic management. Patient is a Type 1 diabetic as an outpatient. Please refer to outpatient regimen and most recent HbA1c above. * Initial labs showed a BSG of 503 mg/dL with anion gap of 21 and CO2 of 16. Insulin drip was started at 5.5 units/hr with a 5.5 unit IV bolus. Drip only ran for approximately 8 hours in which the patient received a total of 25 units of insulin. Patient was given 15 units of Lantus and started on Novolog with a carb ratio of 12 and correction factor of 50 (all based on last endocrine note). At time of insulin drip discontinuation last evening, anion gap had closed and CO2 had normalized. * Today, patient is ordered and tolerating a T1DM diet. NS is infusing at 80 cc/hr. Fasting BSG was 119 mg/dL. Will empirically reduce Lantus by 20% from home dosing to prevent hypoglycemia in the event patient becomes NPO or doesn't eat like she normally does. No changes to Novolog. No plans to resume pump at this time. PLAN FOR INPATIENT GLYCEMIC CONTROL: * Basal insulin * Lantus 12 units SC HS * Bolus insulin * NovoLog per scale ACHS or Q6hrs while NPO * Goal Range: Low 110 mg/dL - High 140 mg/dL * Correction Factor: 50 mg/dL/unit * Nutritional / Prandial insulin per carb ratio of 1 unit per 12 grams CHO consumed
--- NOTE | 2023-02-25 18:13 | Hospitalist Progress Note ---
Date of Service February 25, 2023 Assessment & Plan (1) DKA (diabetic ketoacidoses): Plan: Per admitting service notes with addendum Possible UTI as a cause. Patient has a questionable living situation with a known history of mental illness, history of drug abuse including marijuana, which she states is taken for medical reasons, however, cannot elucidate what those reasons are today. Therefore, other causes are possible. Cont with IVF, insulin and electrolyte replacement as ordered. NPO for now until her glucose is within range and she is feeling less nauseous. Empiric Rocephin pending urine culture results and overall clinical improvement. She is not septic. A1C pending. 02/25 Possible precipitants: Underlying UTI, methamphetamine plus marijuana A1c 8.3 DKA resolved Insulin pump to be restarted this evening Pharmacy glycemic control and para educator on board (2) Intractable nausea and vomiting: Plan: Possibly related to DKA, infection or PUD as patient was seen to have a thickened, edematous distal stomach and proximal duodenum on CT scan. Will start daily protonix, and avoid NSAIDs. Pt denies alcohol use. Consider outpatient GI followup for EGD unless she remains symptomatic in the hospital. 02/25 Resolved (3) Thought disorder: Plan: h/o this per records. Delusions noted today and in recent days with a recent 302 and admission to outpatient psychiatric facility. Not on medications. Psych consulted. 02/25 Psychiatry service consulted Presentation felt to be secondary to methamphetamine plus marijuana use Patient counseled However patient denied using methamphetamine during my interview She says she uses marijuana for medical reasons No inpatient psychiatry admission recommended by psychiatry service at this point (4) Substance abuse: Plan: Urine drug screen positive for amphetamines and marijuana. Supportive care as needed. (5) Type 1 diabetes: Plan: Cont care plan per #1 above. (6) UTI (urinary tract infection): Plan: Rocephin pending culture results and clinical improvement. Pt reports some bladder pain recently. Blood cultures are pending. Follow-up cultures Continue IV ceftriaxone (7) Smoking: Plan: history of this. Smoking cessation strongly recommended. Coronary calcifi cations also noted on CT. Will obtain a screening lipid panel. (8) Thyroid nodule: Plan: Nonurgent thyroid us and followup with PCP as outpatient for further investigation if not already pursued. (9) Abnormal CT of spine: Plan: L3 hardware loosening noted on CT. Follow-up as outpatient for evaluation. No symptoms of pain reported at this time. Will consult orthopedic service Full Code DVT prophylaxis-Lovenox Dispo-pending plan of care discussed with patient in detail and at length all questions answered she is understanding, agreeable, comfortable with the plan of care Admission and Anticipated Discharge Date Admission Date: February 24, 2023 Subjective Follow-up for DKA, psychosis, etc. Seen with MORENITA York at the bedside throughout whole encounter Patient seen resting in bed, sitting up, in good spirits Oriented x 3, answers all questions appropriately States she feels improved overall Hospital recollection of events leading up to hospitalization Denies abdominal, flank, back pain, no problems with urination Denies fevers or chills next no chest pain, dyspnea, palpitations, dizziness Reports pain over the thoracic/upper lumbar area, chronic may be slightly worse than baseline Denies lower extremity weakness, numbness, paresthesias No other new symptoms Review of Systems Review of Systems: all noted and negative except for above Physical Exam Physical Exam: General- oriented x 3, not in distress, speaks in sentences with no effort or accessory muscle use Eyes- anicteric Neck- no JVD Lungs- clear breath sounds bilaterally, no rales/wheezes Heart- normal rate, regular rhythm; no murmurs Abdomen- normal bowel sounds, nondistended, soft, nontender Extremities- no pretibial edema, no calf tenderness Neuro- alert, oriented x 3; no gross focal neurologic deficits Skin- warm & dry Results & Data Results & Data Vital Signs (Past 12 Hours) Vital Signs Temp Pulse Pulse Resp BP Pulse Ox O2 Del Method 02/25/23 15:40 36.8 C 76 18 116/61 97 Room Air 02/25/23 15:27 84 02/25/23 12:07 83 02/25/23 11:19 36.8 C 67 18 111/63 98 Room Air 02/25/23 07:03 36.7 C 77 18 107/63 98 Room Air all noted and reviewed including below (1) DKA (diabetic ketoacidoses) Diabetes mellitus complication detail: without coma Diabetes mellitus type: type 1 Qualified Code(s): E10.10 - Type 1 diabetes mellitus with ketoacidosis without coma (5) Type 1 diabetes Diabetes mellitus complication status: without complication Qualified Code(s): E10.9 - Type 1 diabetes mellitus without complications (6) UTI (urinary tract infection) Hematuria presence: with hematuria Urinary tract infection type: acute cystitis Qualified Code(s): N30.01 - Acute cystitis with hematuria
[2023-02-25] MEDS ORDERED: INSULIN ASPART 100 UNITS/ML VIAL SC PRN (20:00)
[2023-02-25] MEDS: INSULIN, Rapid-Acting PUMP SCH (20:01)
[2023-02-25] MEDS ORDERED: LANTUS PER UNIT CHARGE SC SCH (21:00)
[2023-02-25] MEDS: ENOXAPARIN INJ 40 MG/0.4 ML SYR SQ SCH (21:16)
--- NOTE | 2023-02-26 05:37 | Electrocardiogram Report ---
Test Reason : Blood Pressure : / mmHG Vent. Rate : 107 BPM Atrial Rate : 107 BPM P-R Int : 136 ms QRS Dur : 078 ms QT Int : 368 ms P-R-T Axes : 082 043 077 degrees QTc Int : 491 ms Sinus tachycardia When compared with ECG of 15-FEB-2023 20:45, No significant change was found Confirmed by David Ortega ([id number]) on 02/26/2023 5:36:53 AM Referred By: REFERRED SELF Confirmed By:David Ortega
--- NOTE | 2023-02-26 07:10 | XRay Report ---
XR lumbar spine 2-3V CLINICAL HISTORY: back pain COMPARISON STUDY: Lumbar spine 05/16/2020. Abdomen and pelvis CT 02/24/2023. FINDINGS: There is an old mild superior endplate compression deformity at L2, unchanged. Posterior de compression fusion from T12 through L3 with pedicle screws and rods. The hardware appears intact. Mil d periprosthetic lucency within the right L3 pedicle screw again noted. This suggests loosening. No a cute fracture or subluxation within the lumbar spine. Disc spaces are preserved. The visualized sacru m is intact. IMPRESSION: 1. No acute fractures within the lumbar spine. 2. Old L2 compression deformity again noted. 3. T12-L3 posterior decompression and fusion. 4. Mild periprosthetic lucency at the right L3 pedicle screw again noted. This suggests loosening. ACT 112: Negative or not required by law. Electronically signed by: Freddy Romero M.D. 02/26/2023 7:08 AM
[2023-02-26] MEDS: PANTOprazole 40 MG TAB PO SCH (07:51)
[2023-02-26] MEDS: INSULIN, Rapid-Acting PUMP SCH ×4 (08:15→19:48)
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
[2023-02-26] MEDS: cefTRIAXone SODIUM 2,000 MG in DEXTROSE 5 % MINI-B 50 ML IV SCH (10:43)
--- NOTE | 2023-02-26 16:39 | Hospitalist Progress Note ---
Date of Service February 26, 2023 Assessment & Plan (1) DKA (diabetic ketoacidoses): Plan: Per admitting service notes with addendum Possible UTI as a cause. Patient has a questionable living situation with a known history of mental illness, history of drug abuse including marijuana, which she states is taken for medical reasons, however, cannot elucidate what those reasons are today. Therefore, other causes are possible. Cont with IVF, insulin and electrolyte replacement as ordered. NPO for now until her glucose is within range and she is feeling less nauseous. Empiric Rocephin pending urine culture results and overall clinical improvement. She is not septic. A1C pending. Possible precipitants: Underlying UTI, methamphetamine plus marijuana A1c 8.3 DKA resolved Insulin pump restarted evening of 02/25 BS [id number] Pharmacy glycemic control and psychologist industrial organizational on board Patient follows with [facility] diabetes clinic, advised to follow-up in 1 week (2) Intractable nausea and vomiting: Plan: Possibly related to DKA, infection or PUD as patient was seen to have a thickened, edematous distal stomach and proximal duodenum on CT scan. Will start daily protonix, and avoid NSAIDs. Pt denies alcohol use. Consider outpatient GI followup for EGD unless she remains symptomatic in the hospital. 02/26 Resolved (3) Thought disorder: Plan: h/o this per records. Delusions noted today and in recent days with a recent 302 and admission to outpatient psychiatric facility. Not on medications. Psy belgica consulted. Psychiatry service consulted Presentation felt to be secondary to methamphetamine plus marijuana use Patient counseled However patient denied using methamphetamine during my interview She says she uses marijuana only for medical reasons No inpatient psychiatry admission recommended by psychiatry service at this point (4) Substance abuse: Plan: Urine drug screen positive for amphetamines and marijuana. Supportive care as needed. (5) Type 1 diabetes: Plan: Cont care plan per #1 above. (6) UTI (urinary tract infection): Plan: Rocephin pending culture results and clinical improvement. Pt reports some bladder pain recently. Blood cultures are pending. Follow-up cultures Continue IV ceftriaxone (7) Smoking: Plan: history of this. Smoking cessation strongly recommended. Coronary calcifications also noted on CT. Will obtain a screening lipid panel. LDL 61 aspirin 81 mg p.o. daily upon discharge (8) Thyroid nodule: Plan: Nonurgent thyroid us and followup with PCP as outpatient for further investigation if not already pursued. (9) Abnormal CT of spine: Plan: L3 hardware loosening noted on CT. Follow-up as outpatient for evaluation. No symptoms of pain reported at this time. Will consult orthopedic service: No intervention at this point, follow-up as an outpatient Full Code DVT prophylaxis-Lovenox Dispo-anticipate discharge to home tomorrow plan of care discussed with patient all questions answered she is understanding, agreeable, comfortable with the plan of care Admission and Anticipated Discharge Date Admission Date: February 24, 2023 Subjective Follow-up for DKA, UTI, etc. Seen with MORENITA York at bedside throughout whole encounter Seen resting in bed, comfortable, not in distress Good spirits, smiling States she feels much better Denies abdominal pain, problems with urination no chest pain, dyspnea, palpitations, dizziness No headache, dizziness, nausea vomiting, fevers or chills No Back pain today No new symptoms Review of Systems Review of Systems: all noted and negative except for above Physical Exam Physical Exam: General- oriented x 3, not in distress, speaks in sentences with no effort or accessory muscle use Eyes- anicteric Neck- no JVD Lungs- clear breath sounds bilaterally, no rales/wheezes Heart- normal rate, regular rhythm; no murmurs Abdomen- normal bowel sounds, nondistended, soft, nontender Extremities- no pretibial edema, no calf tenderness Neuro- alert, oriented x 3; no gross focal neurologic deficits Skin- warm & dry Results & Data Results & Data Vital Signs (Past 12 Hours) Vital Signs Temp Pulse Pulse Resp BP Pulse Ox O2 Del Method 02/26/23 15:37 36.6 C 79 18 134/72 96 Room Air 02/26/23 15:23 77 02/26/23 11:19 36.7 C 75 18 120/76 98 Room Air 02/26/23 07:34 74 02/26/23 07:02 36.8 C 71 18 119/69 97 Room Air all noted and reviewed including below (1) DKA (diabetic ketoacidoses) Diabetes mellitus complication detail: without coma Diabetes mellitus type: type 1 Qualified Code(s): E10.10 - Type 1 diabetes mellitus with ketoacidosis without coma (5) Type 1 diabetes Diabetes mellitus complication status: without complication Qualified Code(s): E10.9 - Type 1 diabetes mellitus without complications (6) UTI (urinary tract infection) Hematuria presence: with hematuria Urinary tract infection type: acute cystitis Qualified Code(s): N30.01 - Acute cystitis with hematuria
[2023-02-26] MEDS: ENOXAPARIN INJ 40 MG/0.4 ML SYR SQ SCH (19:49)
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
[2023-02-28 09:37] LABS: Amphetamine Urine, Confirm 277 ng/mL (<250); Marijuana Quant, GCMS Urine 17 ng/mL (<5); Methamphetamine, Ur Confirm 1030 ng/mL (<250)
== END 2023-02-27 10:24 | disposition home or self-care (01) | DRG 638 ==
LOC: ED 08:20 → SUATTDRO 13:10 → 2E 13:10